=== PATIENT | male | born 1955 | race Caucasian/White ===

== ENCOUNTER 2018-03-21 03:19 | Outpatient (CLI) | payer MEDICARE, BC, SELFPAY ==
[2018-03-21 11:04] LABS: BUN 18 mg/dL (7-18); CREATININE 1.07 mg/dL (0.70-1.30); Calcium 9.6 mg/dL (8.5-10.1); Chloride 104 mmol/L (98-107); Glucose 122 mg/dL (70-100); Potassium 4.7 mmol/L (3.5-5.1); Sodium 136 mmol/L (136-145)
== END 2018-03-21 03:20 ==
PROVIDERS: PCP Specialist/Technologist Athletic Trainer; Visit Provider Nurse Practitioner Adult Health
DX: I50.22 Chronic systolic (congestive) heart failure (principal)
CPT/HCPCS: 36415; 80048

== ENCOUNTER 2018-03-21 11:37 | Outpatient (RCR) | payer MEDICARE, OTHER, BC, SELFPAY | END 2018-03-21 23:59 | disposition home or self-care (01) | LOC: CR 11:37 | PROVIDERS: PCP Specialist/Technologist Athletic Trainer; Visit Provider Family Medicine | DX: I50.9 Heart failure, unspecified (principal); Z95.810 Presence of automatic (implantable) cardiac defibrillator; I10 Essential (primary) hypertension; Z51.89 Encounter for other specified aftercare | CPT/HCPCS: S9472 ==

== ENCOUNTER 2018-04-14 08:06 | Outpatient (CLI) | payer MEDICARE, BC, SELFPAY ==
[2018-04-14 11:15] LABS: BUN 23 mg/dL (7-18); CREATININE 1.24 mg/dL (0.70-1.30); Calcium 9.6 mg/dL (8.5-10.1); Chloride 103 mmol/L (98-107); Estimated GFR 58.51 (mL/min/1.73m2); Glucose 84 mg/dL (70-100); Potassium 4.6 mmol/L (3.5-5.1); Sodium 138 mmol/L (136-145)
== END 2018-04-14 08:26 ==
PROVIDERS: PCP Specialist/Technologist Athletic Trainer; Visit Provider Nurse Practitioner Adult Health
DX: I50.22 Chronic systolic (congestive) heart failure (principal)
CPT/HCPCS: 36415; 80048

== ENCOUNTER 2018-04-18 13:21 | Outpatient (RCR) | payer MEDICARE, OTHER, BC, SELFPAY | END 2018-04-20 23:59 | disposition home or self-care (01) | LOC: CR 13:21 | PROVIDERS: PCP Specialist/Technologist Athletic Trainer; Visit Provider Family Medicine | DX: I50.9 Heart failure, unspecified (principal); Z95.810 Presence of automatic (implantable) cardiac defibrillator; I10 Essential (primary) hypertension; Z51.89 Encounter for other specified aftercare | CPT/HCPCS: S9472 ==

== ENCOUNTER 2018-04-29 08:51 | Outpatient (CLI) | payer MEDICARE, BC, SELFPAY ==
[2018-04-29 09:17] LABS: Anion Gap 10.5 mmol/L (3-11); BUN 20 mg/dL (7-18); CO2 25.5 mmol/L (21.0-32.0); CREATININE 1.13 mg/dL (0.70-1.30); Calcium 9.4 mg/dL (8.5-10.1); Chloride 101 mmol/L (98-107); Glucose 254 mg/dL (70-100); Potassium 3.9 mmol/L (3.5-5.1); Sodium 137 mmol/L (136-145)
== END 2018-04-29 09:11 ==
PROVIDERS: PCP Specialist/Technologist Athletic Trainer; Visit Provider Nurse Practitioner Adult Health
DX: I50.22 Chronic systolic (congestive) heart failure (principal)
CPT/HCPCS: 36415; 80048

== ENCOUNTER 2018-05-14 08:46 | Inpatient (IN) | payer MEDICARE, OTHER, SELFPAY ==
[2018-05-14 08:53] VITALS: BP 158/91; PULSE 82; RESP 16; TEMP 36.3; O2SAT 95
[2018-05-14] MEDS: Normal Saline 1,000 ML 1000 ML IV (09:15)
[2018-05-14] MEDS: Metoclopramide 10 MG/2 ML VIAL IVP (09:20)
[2018-05-14 09:23] LABS: Abs Immature Grans 0.04 k/cumm (0.0-0.09); Absolute Basophil Count 0.05 k/cumm (0.0-0.2); Absolute Eosinophil Count 0.08 k/cumm (0.0-0.7); Absolute Lymphocyte Count 3.56 k/cumm (1.2-3.4); Absolute Monocyte Count 1.22 k/cumm (0.11-0.7); Absolute Neutrophil Count 10.32 k/cumm (1.2-6.7); Basophils % 0.3; Eosinophils % 0.5; HCT 44.9 % (40.0-50.0); HGB 15.2 g/dL (13.5-17.5); Immature Grans % 0.3; Lymphocytes % 23.3; Mean Corp. HGB Concentration 33.9 g/dL (32.0-36.0); Mean Corpuscular Hemoglobin 32.5 pg (27.0-33.0); Mean Corpuscular Volume 95.9 fL (80-95); Mean Platelet Volume 11.2 fL (8.0-11.0); Neutrophils % 67.6; Platelet Count 369 x1000/uL (130-400); RBC 4.68 m/cumm (4.50-6.00); RBC Distribution Width 14.4 % (11.8-14.1); White Blood Cell Count 15.26 k/cumm (4.4-10.8)
[2018-05-14] MEDS: HYDROmorphone 2 MG/ML VIAL 1 MG IVP ×3 (09:25→23:22)
--- NOTE | 2018-05-14 09:31 | ED.GENADUL_ITS ---
Discharge Plan Discharge Details Chief Complaint: Abd Prob Reason For Visit: ACUTE PANCREATITIS Admit Date/Time: 05/14/18 10:48 Admit Provider: Katty Martin Attending Provider: Katty Martin Primary Care Provider: Dwain Mercado ED Provider: Yobany Talley Discharge Data Discharge Date/Time-TO BE ENTERED AT DEPARTURE: 05/14/18 11:37 Medical Decision Making 9:30 --53-year-old male with history of insulin-dependent diabetes, recurrent pancreatitis, coronary artery disease, hypertension, CHF, here with abdominal pain nausea since last night that is consistent with prior flare of pancreatitis. Tender mid abdomen with no peritoneal findings. Plan is to check labs. Will give IV fluid bolus. Will give Dilaudid 1 mg IV for analgesia. -- Labs reviewed and lipase elevated. Patient reassessed and continues to have pain. Plan for admission for IVF, bowel rest and pain control. I spoke with hospitalist who will admit - care transitioned to hospitalist at time of admission. Diagnosis: recurrent pancreatitis, acute exacerbation Dispo: [facility] inpatient HPI General Mode of arrival: ambulatory . Date/Time Provider Initiated Documentation: 05/14/18 08:59 . Limitations to Documentation: no limitations . Information obtained by: patient . HPI Narrative: 63-year-old male with history of recurrent pancreatitis, insulin- dependent diabetes, hypertension, CHF, here with chief complaint of abdominal pain. Patient notes the pain started last night and has persisted. Pain is constant and severe. Pain feels like a ache. Localized to mid abdomen. Feels exactly the same as prior flare of pancreatitis. Last flare was a few months ago. He has associated nausea and vomiting x1. No fever. Related Data Home Medications Medication Instructions Recorded Confirmed multivitamin [Multiple Vitamins] 1 tab PO DAILY #30 tab 01/28/16 05/14/18 lisinopril 2.5 mg PO DAILY #30 tab-cap 09/05/16 05/14/18 magnesium oxide 400 mg PO DAILY #30 tab 01/20/17 05/14/18 carvedilol 12.5 mg PO BID #60 tab-cap 03/20/17 05/14/18 [id number] [Creon] 2 ea PO BID 05/07/17 05/14/18 insulin detemir U-100 [Levemir 60 units SQ QAM 06/13/17 05/14/18 FlexTouch U-100 Insuln] insulin detemir U-100 [Levemir 60 units SQ QPM 06/13/17 05/14/18 FlexTouch U-100 Insuln] insulin lispro [Humalog KwikPen 10 unit SQ DAILY 06/13/17 05/14/18 Insulin] fenofibrate 160 mg PO DAILY #30 tablet 10/02/17 05/14/18 furosemide 20 mg PO DAILY tab-cap 12/04/17 05/14/18 ranitidine HCl 300 mg PO DAILY tab-cap 12/04/17 05/14/18 atorvastatin 10 mg PO .QHS 05/14/18 spironolactone 25 mg PO DAILY 05/14/18 Previous Rx's Medication Instructions Recorded multivitamin [Multiple Vitamins] 1 tab PO DAILY #30 tab 01/28/16 magnesium oxide 400 mg PO DAILY #30 tab 01/20/17 fenofibrate 160 mg PO DAILY #30 tablet 10/02/17 Allergies Allergy/AdvReac Type Severity Reaction Status Date / Time No Known Allergies Allergy Unverified 05/14/18 08:55 General Stated Complaint: Abd Prob KOLBY: 3 Review of Systems Review of Systems All systems reviewed & are unremarkable except as noted in HPI and below Cardiovascular Denies chest pain Gastrointestinal Reports as per HPI and Reports abdominal pain PFSH Social History Smoking/Tobacco Use Status: Never Surgical History Cholecystectomy Colonoscopy - IV Sedation (06/20/16) Splenomegaly Exam Const General: cooperative and no acute distress HENMT Mouth: moist mucous membranes Eyes Conjunctivae: conjunctivae normal Sclera: sclerae normal Neck Neck: normal visual inspection Resp Effort & Inspection: normal respiratory effort and no respiratory distress Auscultation: no rales, no rhonchi and no wheezes Cardio Jugular venous pressure: no JVD Rate: not tachycardic Rhythm: regular rhythm Heart Sounds: no gallops, no murmurs and no rubs GI Inspection: non-distended Palpation: soft, not firm, no guarding, not rigid and tender (mid abdomen) Auscultation: normal bowel sounds Skin General skin exam: no rashes or lesions noted Neuro General: alert and awake Extrem General: no edema Psych Appearance: grossly normal Mental Status: mental status grossly normal Speech and Movement: speech and movement normal Course Vital Signs Temperature 36.3 C L 05/14/18 08:53 Pulse 82 05/14/18 08:53 Respiratory Rate 16 05/14/18 08:53 Blood Pressure 158/91 H 05/14/18 08:53 Pulse Oximetry 95 05/14/18 08:53 Temperature 36.3 C L 05/14/18 08:53 Temperature Source Skin 05/14/18 08:53 Pulse 82 05/14/18 08:53 Respiratory Rate 16 05/14/18 08:53 Respiratory Effort 05/14/18 08:53 Blood Pressure 158/91 H 05/14/18 08:53 Blood Pressure Position Sitting 05/14/18 08:53 Pulse Oximetry 95 05/14/18 08:53 Oxygen Delivery Method Room Air 05/14/18 08:53 Oxygen Flow Rate 0 05/14/18 08:53 Pain Level 7 05/14/18 08:53 Lab/Test Results Lab/Test Results: Laboratory Tests Range/Units 05/14/18 09:15 WBC (4.4-10.8) k/cumm 15.26 H RBC (4.50-6.00) m/cumm 4.68 Hgb (13.5-17.5) g/dL 15.2 Hct (40.0-50.0) % 44.9 MCV (80-95) fL 95.9 H MCH (27.0-33.0) pg 32.5 MCHC (32.0-36.0) g/dL 33.9 RDW (11.8-14.1) % 14.4 H Plt Count (130-400) x1000/uL 369 MPV (8.0-11.0) fL 11.2 H Immature Gran % 0.3 Neutrophils % 67.6 Lymphocytes % 23.3 Monocytes % 8.0 Eosinophils % 0.5 Basophils % 0.3 Absolute Neutrophils (1.2-6.7) k/cumm 10.32 H Absolute Lymphocytes (1.2-3.4) k/cumm 3.56 H Absolute Monocytes (0.11-0.7) k/cumm 1.22 H Absolute Eosinophils (0.0-0.7) k/cumm 0.08 Absolute Basophils (0.0-0.2) k/cumm 0.05
[2018-05-14 09:36] LABS: ALT 28 U/L (12-78); AST 21 U/L (15-37); Albumin 3.9 g/dL (3.4-5.0); Alkaline Phosphatase 65 U/L (46-116); Anion Gap 11.1 mmol/L (3-11); BUN 28 mg/dL (7-18); Bilirubin, Total 0.7 mg/dL (0.2-1.0); CO2 23.9 mmol/L (21.0-32.0); CREATININE 1.38 mg/dL (0.70-1.30); Calcium 9.7 mg/dL (8.5-10.1); Chloride 99 mmol/L (98-107); Estimated GFR 51.71 (mL/min/1.73m2); Glucose 283 mg/dL (70-100); Lipase 430 U/L (73-393); Potassium 4.6 mmol/L (3.5-5.1); Sodium 134 mmol/L (136-145)
[2018-05-14 11:40] VITALS: BP 133/87; PULSE 86; RESP 20; TEMP 36.6; O2SAT 96
[2018-05-14 11:50] VITALS: BP 119/62; PULSE 77; RESP 16; TEMP 36.6; O2SAT 95
[2018-05-14] MEDS: Pantoprazole 40 MG VIAL IVP (12:03)
[2018-05-14] MEDS: Enoxaparin 40 MG/0.4 ML SYR SC (12:04)
[2018-05-14] MEDS: Normal Saline Flush 10 ML SYR IVP ×2 (12:04→23:22)
[2018-05-14] MEDS: Normal Saline 1,000 ML 200 ML IV ×2 (12:04→17:10)
[2018-05-14] MEDS: Insulin Aspart 300 UNITS/3 ML PEN SC ×2 (12:41→17:50)
[2018-05-14 16:12] VITALS: BP 153/88; PULSE 79; RESP 20; TEMP 36.4; O2SAT 96
--- NOTE | 2018-05-14 16:23 | HPE_ITS ---
Date of service: 05/14/18 Time of Service: 16:18 Assessment and Plan (1) Recurrent acute pancreatitis: Current visit: Yes Status: Acute With mildly elevated lipase at 430. He has a history of hypertriglyceridemia. Will assess lipids with morning labs. Have analgesics and antiemetics available. He will remain n.p.o. Continue IV fluids. Reassess labs in the morning. (2) Cardiomyopathy, alcoholic: Current visit: Yes Status: Acute He does have cardiomyopathy with most recent echocardiogram in November 2017 revealing mild to moderately reduced systolic function with LVEF of 30-35%. He does have an ICD in place. We will need to monitor his fluid status closely so he does not get fluid overloaded. Monitor daily weights. (3) Diabetes mellitus type 2 in obese: Current visit: Yes Status: Acute He will remain n.p.o. for now. Monitor fingersticks every 6 hours with sliding scale coverage per moderate protocol. Basal insulin at half of his home dose given n.p.o. status. (4) Essential hypertension: Current visit: Yes Status: Acute Hold oral blood pressure medications and continue to monitor blood pressures. Plan to resume home regimen as he is able to take orals. (5) DVT prophylaxis: Current visit: No Status: Acute Subcutaneous Lovenox. (6) Discharge planning issues: Current visit: No Status: Acute He is a full code. This case was discussed with Dr. Martin who is in agreement. History of Present Illness Chief Complaint: Abdominal pain, nausea and vomting. Narrative: Sonny Henning is a 63 year old man with a history of nonischemic cardiomyopathy status post subcutaneous ICD, insulin-dependent diabetes, coronary artery disease, hypertension, CHF and recurrent pancreatitis who presented to the Emergency Department today with reports of abdominal pain, nausea and vomiting that began last night. He does have a history of alcohol abuse but is currently in remission, he reports that he has not had an alcoholic beverage in about 2.5 years. In the emergency room, he had labs drawn that were remarkable for a mildly elevated lipase of 430, leukocytosis with a white blood cell count of 15.26, anion gap elevated at 11.1. He was given an IV fluid bolus. He is admitted to the med/surg floor for further observation and management of pancreatitis. Of note, he was admitted in September of this year for pancreatitis which was thought to be related to hypertriglyceridemia as his triglyceride level at that time was 1755. At that time he was changed from gemfibrozil to fenofibrate and atorvastatin was continued. Review of Systems Review of Systems Constitutional: He denies any fevers or chills at home. HEENT: He denies any headaches, vision changes, ear pain or discharge, nose pain or discharge, sore throat. Respiratory: He denies any shortness of breath, wheezing, he does report a dry cough that is nonproductive. Cardiovascular: He denies any chest pain/pressure, no palpitations, no edema. GI: He notes significant abdominal discomfort across the top of his abdomen and epigastric region, the pain is constant and aching, reminiscent of previous pancreatitis flares. He reports nausea and vomiting. He has been able to take in some oral intake at home. : He denies any dysuria, hematuria, frequency or urgency of urination. Extremities: He denies any pain or stiffness, no edema. Skin: He denies any rashes or lesions. [facility] Social History Smoking/Tobacco Use Status: Never Surgical History Cholecystectomy Colonoscopy - IV Sedation (06/20/16) [facility] Meds Home Medications Medication Instructions Recorded Confirmed Type multivitamin [Multiple Vitamins] 1 tab PO DAILY #30 tab 01/28/16 05/14/18 Rx lisinopril 2.5 mg PO DAILY #30 tab-cap 09/05/16 05/14/18 History magnesium oxide 400 mg PO DAILY #30 tab 01/20/17 05/14/18 Rx carvedilol 12.5 mg PO BID #60 tab-cap 03/20/17 05/14/18 History [id number] [Creon] 2 ea PO BID 05/07/17 05/14/18 History insulin detemir U-100 [Levemir 60 units SQ QAM 06/13/17 05/14/18 History FlexTouch U-100 Insuln] insulin detemir U-100 [Levemir 60 units SQ QPM 06/13/17 05/14/18 History FlexTouch U-100 Insuln] insulin lispro [Humalog KwikPen 10 unit SQ DAILY 06/13/17 05/14/18 History Insulin] fenofibrate 160 mg PO DAILY #30 tablet 10/02/17 05/14/18 Rx furosemide 20 mg PO DAILY tab-cap 12/04/17 05/14/18 History ranitidine HCl 300 mg PO DAILY tab-cap 12/04/17 05/14/18 History atorvastatin 10 mg PO .QHS 05/14/18 History spironolactone 25 mg PO DAILY 05/14/18 History Allergies Allergy/AdvReac Type Severity Reaction Status Date / Time No Known Allergies Allergy Unverified 05/14/18 08:55 Exam Narrative Exam Narrative: General: Face is flushed, he is a pleasant and cooperative, overweight man, appears stated age. he is in no acute distress. HEENT: Pupils are equal and round. Mucous membranes are moist. Neck: Supple without JVD. Respiratory: Respirations are even and unlabored, lung sounds are clear to auscultation throughout, no adventitious lung sounds noted throughout lung escudero. Cardiovascular: Heart has a regular rate and rhythm, non-tachycardic. Soft murmur noted at the right sternal border. GI: Large round abdomen, soft, mildly distended. Tender on palpation across upper abdomen. Hypoactive bowel sounds throughout. Extremities: Well perfused without clubbing cyanosis or edema. Peripheral pulses palpable. Skin: No rash or lesion noted. Results Labs : 05/14/18 09:15 05/14/18 09:15 Laboratory Results - last 24 hr 05/14/18 05/14/18 09:15 09:15 WBC 15.26 H RBC 4.68 Hgb 15.2 Hct 44.9 MCV 95.9 H MCH 32.5 MCHC 33.9 RDW 14.4 H Plt Count 369 MPV 11.2 H Immature Gran % 0.3 Neutrophils % 67.6 Lymphocytes % 23.3 Monocytes % 8.0 Eosinophils % 0.5 Basophils % 0.3 Absolute Neutrophils 10.32 H Absolute Lymphocytes 3.56 H Absolute Monocytes 1.22 H Absolute Eosinophils 0.08 Absolute Basophils 0.05 Sodium 134 L Potassium 4.6 Chloride 99 Carbon Dioxide 23.9 Anion Gap 11.1 H BUN 28 H Creatinine 1.38 H Estimated GFR/1.73 m2 51.71 Glucose 283 H Calcium 9.7 Total Bilirubin 0.7 AST 21 ALT 28 Alkaline Phosphatase 65 Total Protein 8.0 Albumin 3.9 Lipase 430 H Last Vital Signs Temp 36.4 C L 10/24/18 16:12 Pulse 79 05/14/18 16:12 Resp 20 05/14/18 16:12 BP 153/88 H 05/14/18 16:12 Pulse Ox 96 05/14/18 16:12
[2018-05-14 19:43] VITALS: BP 130/74; PULSE 82; RESP 19; TEMP 36.4; O2SAT 94
[2018-05-14] MEDS: Insulin Glargine 300 UNITS/3 ML PEN 30 UNITS SC (21:27)
[2018-05-14] MEDS: Normal Saline 1,000 ML 100 ML IV (23:23)
[2018-05-15] VITALS (7 sets, daily range): BP systolic 100–163; BP diastolic 60–96; PULSE 78–94; RESP 16–20; TEMP 36.5–37.5; O2SAT 92–97
[2018-05-15 07:20] LABS: Abs Immature Grans 0.01 k/cumm (0.0-0.09); Absolute Basophil Count 0.02 k/cumm (0.0-0.2); Absolute Eosinophil Count 0.17 k/cumm (0.0-0.7); Absolute Lymphocyte Count 4.16 k/cumm (1.2-3.4); Absolute Monocyte Count 1.18 k/cumm (0.11-0.7); Absolute Neutrophil Count 5.18 k/cumm (1.2-6.7); Basophils % 0.2; Eosinophils % 1.6; HCT 42.7 % (40.0-50.0); HGB 14.1 g/dL (13.5-17.5); Immature Grans % 0.1; Lymphocytes % 38.8; Mean Corpuscular Hemoglobin 32.6 pg (27.0-33.0); Mean Corpuscular Volume 98.8 fL (80-95); Mean Platelet Volume 11.4 fL (8.0-11.0); Neutrophils % 48.3; Platelet Count 321 x1000/uL (130-400); RBC 4.32 m/cumm (4.50-6.00); RBC Distribution Width 14.5 % (11.8-14.1); White Blood Cell Count 10.72 k/cumm (4.4-10.8)
[2018-05-15 07:51] LABS: ALT 23 U/L (12-78); AST 16 U/L (15-37); Alkaline Phosphatase 56 U/L (46-116); BUN 17 mg/dL (7-18); Bilirubin, Direct 0.15 mg/dL (0.00-0.20); Bilirubin, Total 0.7 mg/dL (0.2-1.0); CREATININE 1.04 mg/dL (0.70-1.30); Calcium 8.5 mg/dL (8.5-10.1); Chloride 103 mmol/L (98-107); Glucose 142 mg/dL (70-100); Lipase 678 U/L (73-393); Potassium 3.7 mmol/L (3.5-5.1); Sodium 138 mmol/L (136-145); Total Protein 6.8 g/dL (6.4-8.2)
[2018-05-15 08:03] LABS: Cholesterol 178 mg/dL (50-200); HDL Cholesterol 24 mg/dL (40-60); LDL CHOLESTEROL 83 mg/dL (<100); Triglyceride 484 mg/dL (30-150)
[2018-05-15] MEDS: Insulin Glargine 300 UNITS/3 ML PEN 30 UNITS SC ×2 (08:29→20:50)
--- NOTE | 2018-05-15 09:07 | PDOC.CMIN ---
- If Service Date Differs Date of service: 05/15/18 Time of Service: 09:07 Care Management Initial Assess REASON FOR HOSPITALIZATION:: Acute pancreatitis. PAST MEDICAL HISTORY/PAST SURGICAL HISTORY:: Alcohol dependence, cardiomyopathy (alcoholic), CHF, diabetes type II, essential HTN, hypertriglyceridemia, LBBB, pancreatic pseudocyst, pancreatitis, recurrent acute pancreatitis. Surgical hx: cholecystectomy, colonoscopy, implantable cardiverter-defibrillator (ICD) placement, tonsillectomy, splenomegaly. PREVIOUS FUNCTIONAL STATUS/SOCIAL/FAMILY SUPPORTS:: Sonny resides in [facility] with his , Stephanie, their 29 year old son, Tyler, his girlfriend and her child, and Tyler's daughter (Sonny's granddaughter). He is retired since 2016, having most recently been employed at [employer]. 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 His , Stephanie, works in [place] at [employer]. Cyndie is independent with his ADLs and transportation and does not utilize any equipment for ambulating. CURRENT FUNCTIONAL STATUS:: Sonny is lying in bed when CM visits this morning. He is engaged in conversation, makes good eye contact, and is talkative. Sonny denies pain at this time and has no complaints or concerns. He is NPO and is receiving IV fluids (NS) at 100ml/hr. ADVANCE DIRECTIVES:: On file at [facility]. Has patient been provided with information about the portal?: Yes Did the patient sign up for the portal?: No CODE STATUS:: Full Code INSURANCE COVERAGE / FINANCIAL ISSUES:: Medicare. CURRENT HOME/COMMUNITY SERVICES/EQUIPMENT:: No home or community services. No equipment. PRIMARY CARE PHYSICIAN:: Dwain Mercado. POTENTIAL DISCHARGE NEEDS:: Follow up appointment with PCP. PATIENT/FAMILY EDUCATION NEEDS:: Discharge education, any limitations, and follow up plan of care. Ask Me Three discussion. ANTICIPATED BARRIERS TO DISCHARGE:: No anticipated barriers to discharge. TRANSPORTATION:: Sonny will discharge home via private vehicle with his family. PLAN:: Sonny will discharge home when medically ready per MD. Anticipate patient will discharge with no services and follow up with PCP. CM will continue to offer support to patient and care team regarding discharge planning and disposition.
--- NOTE | 2018-05-15 09:15 | INITIAL_ITS ---
- If Service Date Differs Date of service: 05/15/18 Time of Service: 09:07 Care Management Initial Assess REASON FOR HOSPITALIZATION:: Acute pancreatitis. PAST MEDICAL HISTORY/PAST SURGICAL HISTORY:: Alcohol dependence, cardiomyopathy (alcoholic), CHF, diabetes type II, essential HTN, hypertriglyceridemia, LBBB, pancreatic pseudocyst, pancreatitis, recurrent acute pancreatitis. Surgical hx: cholecystectomy, colonoscopy, implantable cardiverter-defibrillator (ICD) placement, tonsillectomy, splenomegaly. PREVIOUS FUNCTIONAL STATUS/SOCIAL/FAMILY SUPPORTS:: Sonny resides in [facility] with his , Stephanie, their 29 year old son, Tyler, his girlfriend and her child, and Tyler's daughter (Sonny's granddaughter). He is retired since 2016, having most recently been employed at [employer]. 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 His , Stephanie, works in [place] at [employer]. Cyndie is independent with his ADLs and transportation and does not utilize any equipment for ambulating. CURRENT FUNCTIONAL STATUS:: Sonny is lying in bed when CM visits this morning. He is engaged in conversation, makes good eye contact, and is talkative. Sonny denies pain at this time and has no complaints or concerns. He is NPO and is receiving IV fluids (NS) at 100ml/hr. ADVANCE DIRECTIVES:: On file at [facility]. Has patient been provided with information about the portal?: Yes Did the patient sign up for the portal?: No CODE STATUS:: Full Code INSURANCE COVERAGE / FINANCIAL ISSUES:: Medicare. CURRENT HOME/COMMUNITY SERVICES/EQUIPMENT:: No home or community services. No equipment. PRIMARY CARE PHYSICIAN:: Dwain Mercado. POTENTIAL DISCHARGE NEEDS:: Follow up appointment with PCP. PATIENT/FAMILY EDUCATION NEEDS:: Discharge education, any limitations, and follow up plan of care. Ask Me Three discussion. ANTICIPATED BARRIERS TO DISCHARGE:: No anticipated barriers to discharge. TRANSPORTATION:: Sonny will discharge home via private vehicle with his family. PLAN:: Sonny will discharge home when medically ready per MD. Anticipate patient will discharge with no services and follow up with PCP. CM will continue to offer support to patient and care team regarding discharge planning and disposition.
--- NOTE | 2018-05-15 11:52 | PGE_ITS ---
Assessment and Plan (1) Recurrent acute pancreatitis: Current visit: Yes Status: Acute Lipase up today to 678 from 430. He has a history of hypertriglyceridemia , his triglycerides have improved since his last hospitalization to 484 ( previously 1755). Continue to have analgesics and antiemetics available. The plan is to trial a clear liquid diet. Will keep IV fluids running until it is clear that he is tolerating oral fluids. Reassess labs in the morning. (2) Cardiomyopathy, alcoholic: Current visit: Yes Status: Acute He does have cardiomyopathy with most recent echocardiogram in November 2017 revealing mild to moderately reduced systolic function with LVEF of 30-35%. He does have an ICD in place. Continue to monitor his fluid status closely so he does not get fluid overloaded. Monitor daily weights. Will discontinue IV fluids once it is clear that he is tolerating oral intake. (3) Diabetes mellitus type 2 in obese: Current visit: Yes Status: Acute His blood sugars are in an acceptable range. Will adjust fingersticks to AC&HS with sliding scale coverage per moderate protocol. Continue basal insulin at half of his home dose, increase as his diet increases. (4) Essential hypertension: Current visit: Yes Status: Acute Blood pressure stable. Continue to hold oral blood pressure medications and continue to monitor blood pressures. Plan to resume home regimen as he is able to take orals. (5) DVT prophylaxis: Current visit: No Status: Acute Subcutaneous Lovenox. (6) Discharge planning issues: Current visit: No Status: Acute He is a full code. This case was discussed with Dr. Martin who is in agreement. Subjective Interval history since last seen: Sonny Henning is a 63 year old man with a history of nonischemic cardiomyopathy status post subcutaneous ICD, insulin- dependent diabetes, coronary artery disease, hypertension, CHF and recurrent pancreatitis who is currently being treated for pancreatitis. He presented to the ED with abdominal pain, nausea and vomiting. His lipase was mildly elevated at 430, today his lipase it up to 678. His white count was 15.26, it is down to 10.72 today. His kidney function has normalized today. He feels better. He continues to have some upper abdominal discomfort, however, he has not required IV pain medicine in several hours. He would like to trial a clear liquid diet. He denies any chest pain/pressure, palpitations, shortness of breath, wheezing, cough, his nausea has resolved, he denies any issues with his bowel or bladder function. Exam Narrative Exam Narrative: General: He is a pleasant and cooperative, overweight man, appears stated age. He is in no acute distress. HEENT: Pupils are equal and round. Mucous membranes are moist. Neck: Supple without JVD. Respiratory: Respirations are even and unlabored, lung sounds are clear to auscultation throughout, no adventitious lung sounds noted throughout lung escudero. Cardiovascular: Heart has a regular rate and rhythm, non-tachycardic. Soft murmur noted at the right sternal border, second intercostal space. GI: Large round abdomen, soft, mildly distended. Tender on palpation across upper abdomen. Hypoactive bowel sounds throughout. Extremities: Well perfused without clubbing cyanosis or edema. Peripheral pulses palpable. Skin: No rash or lesion noted. Objective Objective Clinical Data: Abnormal lab results 05/15/18 05/15/18 Range/Units 06:45 06:45 RBC 4.32 L (4.50-6.00) m/cumm MCV 98.8 H (80-95) fL RDW 14.5 H (11.8-14.1) % MPV 11.4 H (8.0-11.0) fL Absolute Lymphocytes 4.16 H (1.2-3.4) k/cumm Absolute Monocytes 1.18 H (0.11-0.7) k/cumm Glucose 142 H D (70-100) mg/dL Albumin 3.0 L (3.4-5.0) g/dL Triglycerides 484 H (30-150) mg/dL HDL Cholesterol 24 L (40-60) mg/dL Lipase 678 H (73-393) U/L Vital Signs Temperature 37.4 C 05/15/18 08:25 Temperature Source Tympanic 05/15/18 08:25 Pulse 78 05/15/18 08:25 Pulse Rhythm Regular 05/15/18 08:20 Respiratory Rate 20 05/15/18 08:25 Respiratory Effort 05/15/18 08:20 Respiratory Depth Normal 05/15/18 08:20 Respiratory Pattern Normal 05/15/18 08:20 Blood Pressure 132/75 05/15/18 08:25 Blood Pressure Position Sitting 05/14/18 08:53 Pulse Oximetry 96 05/15/18 08:25 Oxygen Delivery Method Room Air 05/15/18 08:25 Oxygen Flow Rate 0 05/15/18 08:25 Pain Level 3 05/15/18 08:25 Comment 05/15/18 08:25 Intake & Output 05/14/18 05/14/18 05/15/18 11:59 23:59 11:59 Intake Total 100 1999 Output Total 800 / 800 925 / 925 Balance 100 / 1200 / 1200 -925 / -925 Weight 111.13 kg 115.1 kg Intake: IV 1999 Output: Urine 800 / 800 925 / 925 Other: Urine Color Yellow Straw Urine Appearance Clear Clear Clear Voiding Methods Urinal Urinal Laboratory Results WBC 10.72 k/cumm (4.4-10.8) 05/15/18 06:45 RBC 4.32 m/cumm (4.50-6.00) L 05/15/18 06:45 Hgb 14.1 g/dL (13.5-17.5) 05/15/18 06:45 Hct 42.7 % (40.0-50.0) 05/15/18 06:45 MCV 98.8 fL (80-95) H 05/15/18 06:45 MCH 32.6 pg (27.0-33.0) 05/15/18 06:45 MCHC 33.0 g/dL (32.0-36.0) 05/15/18 06:45 RDW 14.5 % (11.8-14.1) H 05/15/18 06:45 Plt Count 321 x1000/uL (130-400) 05/15/18 06:45 MPV 11.4 fL (8.0-11.0) H 05/15/18 06:45 Immature Gran % 0.1 05/15/18 06:45 Neutrophils % 48.3 05/15/18 06:45 Lymphocytes % 38.8 05/15/18 06:45 Monocytes % 11.0 05/15/18 06:45 Eosinophils % 1.6 05/15/18 06:45 Basophils % 0.2 05/15/18 06:45 Absolute Neutrophils 5.18 k/cumm (1.2-6.7) 05/15/18 06:45 Absolute Lymphocytes 4.16 k/cumm (1.2-3.4) H 05/15/18 06:45 Absolute Monocytes 1.18 k/cumm (0.11-0.7) H 05/15/18 06:45 Absolute Eosinophils 0.17 k/cumm (0.0-0.7) 05/15/18 06:45 Absolute Basophils 0.02 k/cumm (0.0-0.2) 05/15/18 06:45 Sodium 138 mmol/L (136-145) 05/15/18 06:45 Potassium 3.7 mmol/L (3.5-5.1) 05/15/18 06:45 Chloride 103 mmol/L (98-107) 05/15/18 06:45 Carbon Dioxide 27.0 mmol/L (21.0-32.0) 05/15/18 06:45 Anion Gap 8.0 mmol/L (3-11) 05/15/18 06:45 BUN 17 mg/dL (7-18) D 05/15/18 06:45 Creatinine 1.04 mg/dL (0.70-1.30) 05/15/18 06:45 Estimated GFR/1.73 m2 >= 60.00 (mL/min/1.73m2) 05/15/18 06:45 Glucose 142 mg/dL (70-100) H D 05/15/18 06:45 Calcium 8.5 mg/dL (8.5-10.1) 05/15/18 06:45 Magnesium 2.0 mg/dL (1.8-2.4) 05/15/18 06:45 Total Bilirubin 0.7 mg/dL (0.2-1.0) 05/15/18 06:45 Conjugated Bilirubin 0.15 mg/dL (0.00-0.20) 05/15/18 06:45 AST 16 U/L (15-37) 05/15/18 06:45 ALT 23 U/L (12-78) 05/15/18 06:45 Alkaline Phosphatase 56 U/L (46-116) 05/15/18 06:45 Total Protein 6.8 g/dL (6.4-8.2) 05/15/18 06:45 Albumin 3.0 g/dL (3.4-5.0) L 05/15/18 06:45 Triglycerides 484 mg/dL (30-150) H 05/15/18 06:45 Total Cholesterol 178 mg/dL (50-200) 05/15/18 06:45 LDL Cholesterol Direct 83 mg/dL (<100) 05/15/18 06:45 HDL Cholesterol 24 mg/dL (40-60) L 05/15/18 06:45 Lipase 678 U/L (73-393) H 05/15/18 06:45
[2018-05-15] MEDS: Normal Saline Flush 10 ML SYR IVP (12:10)
[2018-05-15] MEDS: Pantoprazole 40 MG VIAL IVP (12:10)
[2018-05-15] MEDS: Normal Saline 1,000 ML 100 ML IV ×2 (12:10→22:59)
[2018-05-15] MEDS: Enoxaparin 40 MG/0.4 ML SYR SC (12:11)
[2018-05-15] MEDS: Insulin Aspart 300 UNITS/3 ML PEN SC ×2 (12:19→17:41)
--- NOTE | 2018-05-15 12:29 | PHARADMIT ---
Addendum entered by Jesus Hinojosa III 05/16/18 13:16: Pharmacy Note Subjective Patient placed on clears, bearly tolerating, MD to go slow advancing diet. Objective VS-OK Pain:08/31 FSBS-137 No Labs, No BM Assessment On Lovenox, Insulin adjusted Plan MD awaiting patients symptoms to clear. Supportive care Original Note: Admission Pharmacy Clinical Review ACUTE PANCREATITIS Code Status Full Code Current Weight Wgt-115.1 kg Renally Cleared and Narrow Therapeutic Index Meds CrCl~ 80 mL/min Meds-OK QTc Value / Action Taken NA BP Control, Fever BP- 139/80 Tmax- 37.5C Electrolytes reviewed Na- 138 K+3.7 DVT Prophylaxis Lovenox Opiate Usage / Scheduled Bowel Regimen Ordered Yes Yes Plt/SCr for Heparin / Enoxaparin Plts-321 SCr-1.04 INR for Warfarin NA H/H stable, WBC/Bands H&H- 14.1/42.7 WBC- 10.72 Antibiotic appropriateness none Cultures and Sensitivities none Surgical ABX d/c within 24 hr na DM control / Insulin Dosing BG- 142, Aspart, Glargine Heart Failure (Check EF%) (MEE's, B-Block, Diuretics) none IV to PO Switch No Home Meds Reviewed Yes Home Meds Not Ordered Coreg,Creon, Fenofibrate, Levemir, Lispro, Lisinopril, Zantac, Lasix MagOx, M-vites,Spironolactone Comments
[2018-05-15] MEDS: HYDROmorphone 2 MG/ML VIAL 1 MG IVP (20:14)
[2018-05-16 03:35] VITALS: BP 105/65; PULSE 80; RESP 20; TEMP 36.5; O2SAT 97
[2018-05-16] MEDS: HYDROmorphone 2 MG/ML VIAL 1 MG IVP (03:52)
[2018-05-16 07:40] VITALS: BP 128/80; PULSE 78; RESP 18; TEMP 36.6; O2SAT 96
[2018-05-16] MEDS: Insulin Glargine 300 UNITS/3 ML PEN 30 UNITS SC ×2 (08:58→20:45)
--- NOTE | 2018-05-16 10:54 | PDOC.CMPRO ---
- If Service Date Differs Date of service: 05/16/18 Time of Service: 10:55 Care Management Progress Note S/O: Shon is sitting up in his chair watching TV when this staff writer visits. Shon checks in with ALAINA and states that he is feeling better today. CM discussed Shon's Creon medication, he states that he was able to get it filled previously as he had BCBS, and now with his change in insurance to [facility], they will not cover the cost of the medication and states that it is $756. Shon states that he has spoken with his PCP office and that they are working on it. ALAINA contacted Dwain Mercado's nurse, [facility], and left a message in regards to the above. ALAINA spoke with JONO Whitley, in regards to the above as well. A: 63 y/o male admitted 05/14/18 for acute pancreatitis. P: Shon will return home with no anticipated services. He will F/U with PCP and plan of care as prescribed. Shon states that either his or son will transport when medically cleared.
--- NOTE | 2018-05-16 11:02 | CMPROGNOTE_ITS ---
- If Service Date Differs Date of service: 05/16/18 Time of Service: 10:55 Care Management Progress Note S/O: Shon is sitting up in his chair watching TV when this flex o writer operator visits. Shon checks in with ALAINA and states that he is feeling better today. CM discussed Shon' s Creon medication, he states that he was able to get it filled previously as he had BCBS, and now with his change in insurance to [facility], they will not cover the cost of the medication and states that it is $756. Shon states that he has spoken with his PCP office and that they are working on it. ALAINA contacted Dwain Mercado's nurse, [facility], and left a message in regards to the above. ALAINA spoke with JONO Whitley, in regards to the above as well. A: 63 y/o male admitted 05/14/18 for acute pancreatitis. P: Shon will return home with no anticipated services. He will F/U with PCP and plan of care as prescribed. Shon states that either his or son will transport when medically cleared.
[2018-05-16 11:45] VITALS: BP 122/74; PULSE 83; RESP 20; TEMP 36.5; O2SAT 96
[2018-05-16] MEDS: Insulin Aspart 300 UNITS/3 ML PEN SC (12:35)
[2018-05-16] MEDS: Normal Saline 1,000 ML 75 ML IV (12:35)
[2018-05-16] MEDS: Pantoprazole 40 MG VIAL IVP (12:36)
[2018-05-16] MEDS: Normal Saline Flush 10 ML SYR IVP (12:36)
[2018-05-16] MEDS: Enoxaparin 40 MG/0.4 ML SYR SC (12:36)
--- NOTE | 2018-05-16 15:30 | PGE_ITS ---
Assessment and Plan (1) Recurrent acute pancreatitis: Current visit: Yes Status: Acute Improving. He has a history of hypertriglyceridemia, his triglycerides have improved since his last hospitalization to 484 (previously 1755). Continue to have analgesics and antiemetics available. The plan is to advance his diet today, monitor him overnight. If he can tolerate his diet and continues to improve, he may be ready for discharge tomorrow. Will reassess labs in the morning. (2) Cardiomyopathy, alcoholic: Current visit: Yes Status: Acute He does have cardiomyopathy with most recent echocardiogram in November 2017 revealing mild to moderately reduced systolic function with LVEF of 30-35%. He does have an ICD in place. He is tolerating clear liquids, IV fluids have been discontinued. Continue to montior. (3) Diabetes mellitus type 2 in obese: Current visit: Yes Status: Acute His blood sugars are in an acceptable range. Continue fingersticks at AC& HS with sliding scale coverage per moderate protocol. Continue basal insulin at half of his home dose. Continue to monitor and adjust insulin accordingly. (4) Essential hypertension: Current visit: Yes Status: Acute Blood pressure stable. Continue to hold oral blood pressure medications and continue to monitor blood pressures. Plan to resume home regimen as he is able to take orals. (5) DVT prophylaxis: Current visit: No Status: Acute Subcutaneous Lovenox. (6) Discharge planning issues: Current visit: No Status: Acute He is a full code. This case was discussed with Dr. Martin who is in agreement. Subjective Interval history since last seen: Sonny Henning is a 63 year old man with a history of nonischemic cardiomyopathy status post subcutaneous ICD, insulin- dependent diabetes, coronary artery disease, hypertension, CHF and recurrent pancreatitis who is currently being treated for pancreatitis. He presented to the ED with abdominal pain, nausea and vomiting. His lipase was mildly elevated at 430, it increased the following day to 678. His white count was 15.26 on admission and normalized the following day. He was started on a clear liquid diet yesterday and has tolerated it well. Today his abdominal pain has improved significantly, he has no nausea today. He is interested in advancing his diet. He denies any chest pain/pressure, palpitations, shortness of breath, wheezing, cough, he denies any issues with his bowel or bladder function. He has been out ambulating in the halls. Exam Narrative Exam Narrative: General: He is a pleasant and cooperative, overweight man, appears stated age. He is in no acute distress. HEENT: Pupils are equal and round. Mucous membranes are moist. Neck: Supple without JVD. Respiratory: Respirations are even and unlabored, lung sounds are clear to auscultation throughout, no adventitious lung sounds noted throughout lung escudero. Cardiovascular: Heart has a regular rate and rhythm, non-tachycardic. Soft murmur noted at the right sternal border, second intercostal space. GI: Large round abdomen, soft, mildly distended, nontender on palpation. Hypoactive bowel sounds throughout. Extremities: Well perfused without clubbing cyanosis or edema. Peripheral pulses palpable. Skin: No rash or lesion noted. Objective Objective Clinical Data: Vital Signs Temperature 36.5 C 05/16/18 11:45 Temperature Source Tympanic 05/16/18 11:45 Pulse 83 05/16/18 11:45 Pulse Rhythm Regular 05/15/18 23:02 Respiratory Rate 20 05/16/18 11:45 Respiratory Effort Non-Labored 05/15/18 23:02 Respiratory Depth Normal 05/15/18 23:02 Respiratory Pattern Normal 05/15/18 23:02 Blood Pressure 122/74 05/16/18 11:45 Blood Pressure Position Sitting 05/14/18 08:53 Pulse Oximetry 96 05/16/18 11:45 Oxygen Delivery Method Room Air 05/16/18 11:45 Oxygen Flow Rate 0 05/16/18 11:45 Pain Level 2 05/16/18 04:52 Comment 05/15/18 12:09 Intake & Output 05/15/18 05/16/18 05/16/18 23:59 11:59 23:59 Intake Total 2430 / 2430 1700.000 / 1700.000 780 / 780 Output Total 700 / 700 650 / 650 Balance 1730 / 1730 1050.000 / 1050.000 780 / 780 Weight 115.1 kg Intake: IV 1000 / 1000 1000.000 / 1000.000 Oral 1430 / 1430 700 / 700 780 / 780 Output: Urine 700 / 700 650 / 650 Other: Urine Color Yellow Straw Urine Appearance Clear Voiding Methods Urinal Urinal Laboratory Results WBC 10.72 k/cumm (4.4-10.8) 05/15/18 06:45 RBC 4.32 m/cumm (4.50-6.00) L 05/15/18 06:45 Hgb 14.1 g/dL (13.5-17.5) 05/15/18 06:45 Hct 42.7 % (40.0-50.0) 05/15/18 06:45 MCV 98.8 fL (80-95) H 05/15/18 06:45 MCH 32.6 pg (27.0-33.0) 05/15/18 06:45 MCHC 33.0 g/dL (32.0-36.0) 05/15/18 06:45 RDW 14.5 % (11.8-14.1) H 05/15/18 06:45 Plt Count 321 x1000/uL (130-400) 05/15/18 06:45 MPV 11.4 fL (8.0-11.0) H 05/15/18 06:45 Immature Gran % 0.1 05/15/18 06:45 Neutrophils % 48.3 05/15/18 06:45 Lymphocytes % 38.8 05/15/18 06:45 Monocytes % 11.0 05/15/18 06:45 Eosinophils % 1.6 05/15/18 06:45 Basophils % 0.2 05/15/18 06:45 Absolute Neutrophils 5.18 k/cumm (1.2-6.7) 05/15/18 06:45 Absolute Lymphocytes 4.16 k/cumm (1.2-3.4) H 05/15/18 06:45 Absolute Monocytes 1.18 k/cumm (0.11-0.7) H 05/15/18 06:45 Absolute Eosinophils 0.17 k/cumm (0.0-0.7) 05/15/18 06:45 Absolute Basophils 0.02 k/cumm (0.0-0.2) 05/15/18 06:45 Sodium 138 mmol/L (136-145) 05/15/18 06:45 Potassium 3.7 mmol/L (3.5-5.1) 05/15/18 06:45 Chloride 103 mmol/L (98-107) 05/15/18 06:45 Carbon Dioxide 27.0 mmol/L (21.0-32.0) 05/15/18 06:45 Anion Gap 8.0 mmol/L (3-11) 05/15/18 06:45 BUN 17 mg/dL (7-18) D 05/15/18 06:45 Creatinine 1.04 mg/dL (0.70-1.30) 05/15/18 06:45 Estimated GFR/1.73 m2 >= 60.00 (mL/min/1.73m2) 05/15/18 06:45 Glucose 142 mg/dL (70-100) H D 05/15/18 06:45 Calcium 8.5 mg/dL (8.5-10.1) 05/15/18 06:45 Magnesium 2.0 mg/dL (1.8-2.4) 05/15/18 06:45 Total Bilirubin 0.7 mg/dL (0.2-1.0) 05/15/18 06:45 Conjugated Bilirubin 0.15 mg/dL (0.00-0.20) 05/15/18 06:45 AST 16 U/L (15-37) 05/15/18 06:45 ALT 23 U/L (12-78) 05/15/18 06:45 Alkaline Phosphatase 56 U/L (46-116) 05/15/18 06:45 Total Protein 6.8 g/dL (6.4-8.2) 05/15/18 06:45 Albumin 3.0 g/dL (3.4-5.0) L 05/15/18 06:45 Triglycerides 484 mg/dL (30-150) H 05/15/18 06:45 Total Cholesterol 178 mg/dL (50-200) 05/15/18 06:45 LDL Cholesterol Direct 83 mg/dL (<100) 05/15/18 06:45 HDL Cholesterol 24 mg/dL (40-60) L 05/15/18 06:45 Lipase 678 U/L (73-393) H 05/15/18 06:45
[2018-05-16 15:41] VITALS: BP 138/76; PULSE 85; RESP 18; TEMP 36.9; O2SAT 96
[2018-05-16 21:19] VITALS: BP 125/82; PULSE 74; RESP 19; TEMP 36.6; O2SAT 96
[2018-05-17 00:22] VITALS: BP 107/68; PULSE 74; RESP 18; TEMP 36.9; O2SAT 96
[2018-05-17] MEDS: Normal Saline 1,000 ML 75 ML IV ×2 (01:36→13:51)
[2018-05-17 04:09] VITALS: BP 111/71; PULSE 77; RESP 16; TEMP 37; O2SAT 96
[2018-05-17 07:49] LABS: Abs Immature Grans 0.02 k/cumm (0.0-0.09); Absolute Basophil Count 0.03 k/cumm (0.0-0.2); Absolute Eosinophil Count 0.42 k/cumm (0.0-0.7); Absolute Lymphocyte Count 3.84 k/cumm (1.2-3.4); Absolute Monocyte Count 0.97 k/cumm (0.11-0.7); Absolute Neutrophil Count 5.29 k/cumm (1.2-6.7); Basophils % 0.3; HCT 41.7 % (40.0-50.0); HGB 14.2 g/dL (13.5-17.5); Immature Grans % 0.2; Lymphocytes % 36.3; Mean Corp. HGB Concentration 34.1 g/dL (32.0-36.0); Mean Corpuscular Hemoglobin 32.9 pg (27.0-33.0); Mean Corpuscular Volume 96.5 fL (80-95); Mean Platelet Volume 11.5 fL (8.0-11.0); Monocytes % 9.2; Platelet Count 323 x1000/uL (130-400); RBC 4.32 m/cumm (4.50-6.00); RBC Distribution Width 13.9 % (11.8-14.1); White Blood Cell Count 10.57 k/cumm (4.4-10.8)
[2018-05-17 07:50] VITALS: BP 134/77; PULSE 80; RESP 16; TEMP 37.1; O2SAT 96
[2018-05-17 07:52] LABS: Lipase 82 U/L (73-393)
[2018-05-17] MEDS: Insulin Glargine 300 UNITS/3 ML PEN 30 UNITS SC ×2 (08:22→21:14)
[2018-05-17] MEDS: Enoxaparin 40 MG/0.4 ML SYR SC (11:56)
[2018-05-17] MEDS: Normal Saline Flush 10 ML SYR IVP ×2 (11:57→15:05)
[2018-05-17] MEDS: Pantoprazole 40 MG VIAL IVP (11:57)
[2018-05-17] MEDS: Insulin Aspart 300 UNITS/3 ML PEN SC ×2 (11:57→16:58)
[2018-05-17 13:07] VITALS: BP 134/85; PULSE 76; RESP 17; TEMP 36.3; O2SAT 96
--- NOTE | 2018-05-17 14:00 | CMPROGNOTE_ITS ---
- If Service Date Differs Date of service: 05/17/18 Time of Service: 13:58 Care Management Progress Note S/O: ALAINA met with Shon this morning, who reports that he is feeling much better. ALAINA discussed the application for [facility], and Shon states that there are still some areas that he needs to complete. Shon states that he also spoke with financial assistance for Creon, and that it will most likely be covered, to where he will have no copay. Shon states that he continues to work on the above forms. ALAINA spoke with [facility], Pharmacy, as Shon has only one days worth of Creon left at home, at time of DC, [facility] may need to assist with the Creon medication so that Shon has enough until he can obtain his prescription. ALAINA spoke with Dr. Sheldon, and he states that Shon is not ready for DC today and that he may potentially be ready tomorrow. A: 63 y/o male admitted 05/14/18 for acute pancreatitis. P: Shon will return home once medically cleared with no anticipated services. He will F/U with PCP and plan of care as prescribed. Shon's or son to transport when ready.
[2018-05-17 16:22] VITALS: BP 128/78; PULSE 85; RESP 18; TEMP 36.7; O2SAT 96
--- NOTE | 2018-05-17 19:02 | W.PM.PROGNOT ---
Assessment and Plan (1) Recurrent acute pancreatitis: Current visit: Yes Status: Acute Improved/resolved. Patient has a history of hypertriglyceridemia, currently well treated with a value of 484 compared to 1755 previously. He is also abstinent from alcohol. Lipase normalized and patient tolerating diet. Please note that he has had a history of recurrence of symptoms soon following discharge. He will be kept and monitored for an additional 24 hours prior to planned discharge tomorrow morning. (2) Cardiomyopathy, alcoholic: Current visit: Yes Status: Acute NICMP with last ECHO in November 2017 showing LVEF of 30-35%. AICD in place. Appears euvolemic. Restart home regimen of BB, MEE-I, K+ Sparing agent, and low dose furosemide with hold parameters. (3) Diabetes mellitus type 2 in obese: Current visit: Yes Status: Acute Continue current half dose basal insulin on BID basis, along with sliding scale coverage and ADA Diet. (4) Essential hypertension: Current visit: Yes Status: Acute Restart cardiac regimen as above with low dose Carvedilol, Lisinopril, and spironolactone. (5) DVT prophylaxis: Current visit: No Status: Acute Subcutaneous Lovenox. (6) Discharge planning issues: Current visit: No Status: Acute Full code. Subjective Interval history since last seen: Patient is a 63 year old man with a history of NICMP s/p AICD, ETOH abuse in remission, Hypertriglyceridemia, insulin-dependent diabetes, and recurrent pancreatitis admitted from [facility] Emergency Department on 05/14 with evidence of recurrent pancreatitis. Mr. Henning initially presented to the ED with abdominal pain, nausea and vomiting. His lipase was mildly elevated at 430, which increased the following day to 678. His white count was 15.26 on admission and normalized the following day. The patient was admitted last September and treated for pancreatitis in the setting of significantly elevated triglyceride levels, at that time with a value of 1755. His current TG values are minimally elevated in the 400 range. He has also been sober for over 2 years. This morning the patient reports essential resolution of abdominal pain with tolerance of a regular diet. Lipase this monrnig was normal as well. No overnight events reported. Remains afebrile. Exam Narrative Exam Narrative: General: Patient appears comfortable, AAOX3, NAD Neck: Supple CV: Regular, nontachycardic, S1S2, No rubs, murmurs, or gallops. Pulmonary: Clear to auscultation bilaterally, no crackles, wheezing, or rhonchi Abdomen: + Bowel Sounds, soft, nontender, nondistended Vascular: No lower extremity edema Psych: Normal mood and affect. Objective Objective Clinical Data: Abnormal lab results 05/17/18 Range/Units 07:25 RBC 4.32 L (4.50-6.00) m/cumm MCV 96.5 H (80-95) fL MPV 11.5 H (8.0-11.0) fL Absolute Lymphocytes 3.84 H (1.2-3.4) k/cumm Absolute Monocytes 0.97 H (0.11-0.7) k/cumm Vital Signs Temperature 36.7 C 05/17/18 16:22 Temperature Source Tympanic 05/17/18 16:22 Pulse 85 05/17/18 16:22 Pulse Rhythm Regular 05/17/18 07:50 Respiratory Rate 18 05/17/18 16:22 Respiratory Effort Non-Labored 05/17/18 07:50 Respiratory Depth Normal 05/17/18 07:50 Respiratory Pattern Normal 05/17/18 07:50 Blood Pressure 128/78 05/17/18 16:22 Blood Pressure Position Sitting 05/14/18 08:53 Pulse Oximetry 96 05/17/18 16:22 Oxygen Delivery Method Room Air 05/17/18 16:22 Oxygen Flow Rate 0 05/17/18 16:22 Pain Level 0 05/16/18 20:15 Comment 05/15/18 12:09 Intake & Output 05/16/18 05/17/18 05/17/18 23:59 11:59 23:59 Intake Total 1020 / 1020 996.25 / 996.25 1488.75 / 1488.75 Balance 1020 / 1020 996.25 / 996.25 1488.75 / 1488.75 Weight 114.6 kg Intake: IV 996.25 / 996.25 1238.75 / 1238.75 Oral 1020 / 1020 250 / 250 Other: Comment voiding independently overnight no complications Voiding Methods Toilet Toilet Laboratory Results WBC 10.57 k/cumm (4.4-10.8) 05/17/18 07:25 RBC 4.32 m/cumm (4.50-6.00) L 05/17/18 07:25 Hgb 14.2 g/dL (13.5-17.5) 05/17/18 07:25 Hct 41.7 % (40.0-50.0) 05/17/18 07:25 MCV 96.5 fL (80-95) H 05/17/18 07:25 MCH 32.9 pg (27.0-33.0) 05/17/18 07:25 MCHC 34.1 g/dL (32.0-36.0) 05/17/18 07:25 RDW 13.9 % (11.8-14.1) 05/17/18 07:25 Plt Count 323 x1000/uL (130-400) 05/17/18 07:25 MPV 11.5 fL (8.0-11.0) H 05/17/18 07:25 Immature Gran % 0.2 05/17/18 07:25 Neutrophils % 50.0 05/17/18 07:25 Lymphocytes % 36.3 05/17/18 07:25 Monocytes % 9.2 05/17/18 07:25 Eosinophils % 4.0 05/17/18 07:25 Basophils % 0.3 05/17/18 07:25 Absolute Neutrophils 5.29 k/cumm (1.2-6.7) 05/17/18 07:25 Absolute Lymphocytes 3.84 k/cumm (1.2-3.4) H 05/17/18 07:25 Absolute Monocytes 0.97 k/cumm (0.11-0.7) H 05/17/18 07:25 Absolute Eosinophils 0.42 k/cumm (0.0-0.7) 05/17/18 07:25 Absolute Basophils 0.03 k/cumm (0.0-0.2) 05/17/18 07:25 Sodium 138 mmol/L (136-145) 05/15/18 06:45 Potassium 3.7 mmol/L (3.5-5.1) 05/15/18 06:45 Chloride 103 mmol/L (98-107) 05/15/18 06:45 Carbon Dioxide 27.0 mmol/L (21.0-32.0) 05/15/18 06:45 Anion Gap 8.0 mmol/L (3-11) 05/15/18 06:45 BUN 17 mg/dL (7-18) D 05/15/18 06:45 Creatinine 1.04 mg/dL (0.70-1.30) 05/15/18 06:45 Estimated GFR/1.73 m2 >= 60.00 (mL/min/1.73m2) 05/15/18 06:45 Glucose 142 mg/dL (70-100) H D 05/15/18 06:45 Calcium 8.5 mg/dL (8.5-10.1) 05/15/18 06:45 Magnesium 2.0 mg/dL (1.8-2.4) 05/15/18 06:45 Total Bilirubin 0.7 mg/dL (0.2-1.0) 05/15/18 06:45 Conjugated Bilirubin 0.15 mg/dL (0.00-0.20) 05/15/18 06:45 AST 16 U/L (15-37) 05/15/18 06:45 ALT 23 U/L (12-78) 05/15/18 06:45 Alkaline Phosphatase 56 U/L (46-116) 05/15/18 06:45 Total Protein 6.8 g/dL (6.4-8.2) 05/15/18 06:45 Albumin 3.0 g/dL (3.4-5.0) L 05/15/18 06:45 Triglycerides 484 mg/dL (30-150) H 05/15/18 06:45 Total Cholesterol 178 mg/dL (50-200) 05/15/18 06:45 LDL Cholesterol Direct 83 mg/dL (<100) 05/15/18 06:45 HDL Cholesterol 24 mg/dL (40-60) L 05/15/18 06:45 Lipase 82 U/L (73-393) 05/17/18 07:25
[2018-05-17 20:04] VITALS: BP 117/70; PULSE 71; RESP 18; TEMP 36.6; O2SAT 95
[2018-05-17] MEDS: Carvedilol 25 MG TAB 12.5 MG PO (21:12)
[2018-05-17] MEDS: Atorvastatin 10 MG TAB PO (21:13)
[2018-05-18 00:19] VITALS: BP 144/84; PULSE 74; RESP 16; TEMP 36.7; O2SAT 98
[2018-05-18 03:34] VITALS: BP 106/68; PULSE 77; RESP 16; TEMP 36.6; O2SAT 97
[2018-05-18] MEDS: Normal Saline 1,000 ML 75 ML IV (03:36)
[2018-05-18 07:20] VITALS: BP 126/70; PULSE 79; RESP 17; TEMP 36.4; O2SAT 94
[2018-05-18] MEDS: Magnesium Oxide 400 MG TAB PO (07:50)
[2018-05-18] MEDS: Lisinopril 5 MG TAB 2.5 MG PO (07:50)
[2018-05-18] MEDS: Furosemide 20 MG TAB PO (07:50)
[2018-05-18] MEDS: Carvedilol 25 MG TAB 12.5 MG PO (07:50)
[2018-05-18] MEDS: Multivitamin TAB 1 TAB PO (07:50)
[2018-05-18] MEDS: Spironolactone 25 MG TAB PO (07:51)
[2018-05-18] MEDS: Insulin Glargine 300 UNITS/3 ML PEN 30 UNITS SC (07:52)
[2018-05-18 08:09] LABS: Lipase 69 U/L (73-393)
--- NOTE | 2018-05-18 13:16 | DSE_ITS ---
Date of service: 05/18/18 DS: Diagnosis Discharge Diagnosis (1) Recurrent acute pancreatitis: Status: Acute (2) Cardiomyopathy, alcoholic: Status: Acute (3) Diabetes mellitus type 2 in obese: Status: Acute (4) Essential hypertension: Status: Acute (5) DVT prophylaxis: Status: Acute (6) Discharge planning issues: Status: Acute Discharge Plan Disposition Patient Disposition: HOME Condition: Improving Discharge Details Reason For Visit: ACUTE PANCREATITIS Admit Date/Time: 05/14/18 10:48 Admit Provider: Katty Martin Attending Provider: Katty Martin Primary Care Provider: Dwain Mercado Hospital Course Hospital Course: Patient is a 63 year old man with a history of NICMP s/p AICD, ETOH abuse in remission, Hypertriglyceridemia, insulin-dependent diabetes, and recurrent pancreatitis admitted from [facility] Emergency Department on 05/14 with evidence of recurrent pancreatitis. Mr. Henning initially presented to the ED with abdominal pain, nausea and vomiting. His lipase was mildly elevated at 430, which increased the following day to 678. His white count was 15.26 on admission and normalized the following day. The patient was admitted last September and treated for pancreatitis in the setting of significantly elevated triglyceride levels, at that time with a value of 1755. His current TG values are minimally elevated in the 400 range. He has also been sober for over 2 years. Yesterday morning the patient reports essential resolution of abdominal pain with tolerance of a regular diet. Lipase continues to remain normal as well. He was kept one additional night and he remains medically stable with no overnight events reported. Remains afebrile and symptom free. Home Meds and New Rx's Prescriptions: Continue lisinopril 10 MG tablet 2.5 mg PO DAILY Qty: 30 RF: 11 carvedilol 25 MG tablet 12.5 mg PO BID Qty: 60 RF: 11 ranitidine HCl 150 MG capsule 300 mg PO DAILY RF: 0 furosemide 20 MG tablet 20 mg PO DAILY RF: 0 multivitamin [Multiple Vitamins] 1 TAB tablet 1 tab PO DAILY Qty: 30 RF: 0 magnesium oxide 400 MG tablet 400 mg PO DAILY Qty: 30 RF: 0 qjocrp-[id number] [Creon] 1 EACH capsule,delayed release(DR/EC) 2 ea PO BID RF: 0 atorvastatin 10 mg Tablet 10 mg PO .QHS RF: 0 spironolactone 25 mg Tablet 25 mg PO DAILY RF: 0 insulin lispro [Humalog KwikPen Insulin] 100 UNIT/ML insulin pen 10 unit SQ DAILY RF: 0 insulin detemir U-100 [Levemir FlexTouch U-100 Insuln] 100 UNIT/ML insulin pen 60 units SQ QPM RF: 0 insulin detemir U-100 [Levemir FlexTouch U-100 Insuln] 100 UNIT/ML insulin pen 60 units SQ QAM RF: 0 fenofibrate 160 MG tablet 160 mg PO DAILY Qty: 30 RF: 0 Discharge Instructions Instructions: Pancreatitis (DC) Additional Instructions: Continue usual medications as prescribed Stand Alone Forms: Nursing Discharge Form Referrals: Dwain Mercado [Primary Care Provider] - (Please john paul your PCP to schedule a follow up appointment for within 2 weeks. [phone]) Activity:: Activity as Tolerated Equipment/Supplies:: No Equipment Needed Diet:: As Tolerated Discharge Orders Discharge Orders: Discharge Order (Routine); Ordered 05/18/18 Ordered By: Giovana Blount Discharge Data Discharge Date/Time-TO BE ENTERED AT DEPARTURE: 05/18/18 11:25 Exam Const General: cooperative, comfortable and no acute distress HENMT Head: normocephalic and atraumatic Resp Effort & Inspection: normal respiratory effort Auscultation: clear to auscultation bilaterally Cardio Rate: regular rate Rhythm: regular rhythm GI Inspection: normal to inspection Palpation: soft, no guarding and nontender Auscultation: normal bowel sounds Skin General skin exam: no rashes or lesions noted Neuro General: alert and oriented x3 Cognition: normal cognition Speech: speech normal Gait: normal gait Motor: muscle tone normal throughout Extrem General: normal to inspection and full ROM Psych Appearance: grossly normal Affect: normal affect Attitude: cooperative Thought Content: normal Insight: insight good DS: Data Vitals/I&O Vitals and I&O: Vital Signs Temperature 36.4 C L 05/18/18 07:20 Temperature Source Tympanic 05/18/18 07:20 Pulse 79 05/18/18 07:20 Pulse Rhythm Regular 05/18/18 07:50 Respiratory Rate 17 05/18/18 07:20 Respiratory Effort Non-Labored 05/18/18 07:50 Respiratory Depth Normal 05/18/18 07:50 Respiratory Pattern Normal 05/18/18 07:50 Blood Pressure 126/70 05/18/18 07:20 Blood Pressure Position Sitting 05/14/18 08:53 Pulse Oximetry 94 L 05/18/18 07:20 Oxygen Delivery Method Room Air 05/18/18 07:20 Oxygen Flow Rate 0 05/18/18 07:20 Pain Level 0 05/18/18 07:20 Comment 05/15/18 12:09 Intake & Output 05/17/18 05/18/18 05/18/18 23:59 11:59 23:59 Intake Total 1728.75 / 1728.75 1543.75 / 1543.75 Balance 1728.75 / 1728.75 1543.75 / 1543.75 Weight 114.6 kg Intake: IV 1238.75 / 1238.75 1183.75 / 1183.75 Oral 490 / 490 360 / 360 Other: Comment patient voiding independently in bathroom, urine not viewed, patient denies complications Pt toileting independently. Voiding Methods Toilet Toilet Labs on day of discharge: Labs from last 24 hours 05/18/18 07:23 Lipase 69 L
--- NOTE | 2018-05-18 14:27 | PDOC.CMDIS ---
- If Service Date Differs Date of service: 05/18/18 Time of Service: 14:27 LACE Index Scoring Tool - Questions: Length of Stay (in days): 4 - 6 Acuity (Admit via E.D.?): Yes Comorbidities: Diabetes w/o Complication E.D. Visits: 5 - Answers: Total Score: 12 Risk of Readmission: High Risk Care Management Discharge Reason for Hospitalization: Acute pancreatitis. Discharge Plan: Shon will return home today with no services. He will F/U with PCP and plan of care as prescribed. Shon has the information for [facility] pharmacy, as well as for the financial assistance for [employer]. Shon's son will transport home. Patient/Family Education Needs: Review DC instructions, any limitations, and discuss 'Ask Me Three'
== END 2018-05-18 11:25 | disposition home or self-care (01) | DRG 439 ==
LOC: ER 09:07 → MS 11:46
PROVIDERS: Nurse Practitioner; Admitting Provider Internal Medicine; Emergency Provider Student in an Organized Health Care Education/Training Program; PCP Specialist/Technologist Athletic Trainer; Visit Provider Internal Medicine
DX: K85.90 Acute pancreatitis without necrosis or infection, unspecified (principal); I42.6 Alcoholic cardiomyopathy; K86.1 Other chronic pancreatitis; F10.11 Alcohol abuse, in remission; E11.9 Type 2 diabetes mellitus without complications; E66.9 Obesity, unspecified; Z68.33 Body mass index [BMI] 33.0-33.9, adult; E78.1 Pure hyperglyceridemia; Z79.4 Long term (current) use of insulin; Z95.810 Presence of automatic (implantable) cardiac defibrillator; I10 Essential (primary) hypertension
CPT/HCPCS: 36415; 80048; 80053; 80061; 80076; 83690; 83721; 96361; 96374; 96375; 99222; 99232; 99238; 99285; J1650; 83735; 85025; 99284; J2765

== ENCOUNTER 2018-05-21 10:00 | Outpatient (RCR) | payer MEDICARE, OTHER, BC, SELFPAY | END 2018-05-21 23:59 | disposition home or self-care (01) | LOC: CR 10:00 | PROVIDERS: PCP Specialist/Technologist Athletic Trainer; Visit Provider Family Medicine | DX: I50.9 Heart failure, unspecified (principal); Z95.810 Presence of automatic (implantable) cardiac defibrillator; I10 Essential (primary) hypertension; Z51.89 Encounter for other specified aftercare | CPT/HCPCS: S9472 ==

== ENCOUNTER 2018-05-22 03:42 | Outpatient (RCR) | payer MEDICARE, OTHER, SELFPAY | END 2018-06-20 23:59 | disposition home or self-care (01) | LOC: CR 03:42 | PROVIDERS: PCP Specialist/Technologist Athletic Trainer; Visit Provider Family Medicine | DX: I50.9 Heart failure, unspecified (principal); Z95.810 Presence of automatic (implantable) cardiac defibrillator; I10 Essential (primary) hypertension; Z51.89 Encounter for other specified aftercare | CPT/HCPCS: S9472 ==

== ENCOUNTER 2018-06-09 07:57 | Outpatient (CLI) | payer MEDICARE, OTHER, SELFPAY ==
[2018-06-09 10:40] LABS: Anion Gap 10.8 mmol/L (3-11); CO2 25.2 mmol/L (21.0-32.0); Chloride 99 mmol/L (98-107); Sodium 135 mmol/L (136-145)
[2018-06-09 12:08] LABS: ALT 23 U/L (12-78); AST 20 U/L (15-37); Albumin 3.8 g/dL (3.4-5.0); Alkaline Phosphatase 86 U/L (46-116); BUN 19 mg/dL (7-18); Bilirubin, Total 0.4 mg/dL (0.2-1.0); CREATININE 1.33 mg/dL (0.70-1.30); Estimated GFR 53.96 (mL/min/1.73m2); Glucose 241 mg/dL (70-100); Total Protein 7.3 g/dL (6.4-8.2)
[2018-06-09 12:10] LABS: Calcium 9.4 mg/dL (8.5-10.1)
[2018-06-09 12:21] LABS: PHOSPHORUS 1.8 mg/dL (2.6-4.7)
[2018-06-10 17:05] LABS: Fructosamine 368 mcmol/L (200 - 285)
== END 2018-06-09 08:17 ==
PROVIDERS: PCP Specialist/Technologist Athletic Trainer; Visit Provider Internal Medicine Endocrinology, Diabetes & Metabolism
DX: E11.65 Type 2 diabetes mellitus with hyperglycemia (principal)
CPT/HCPCS: 36415; 80053; 82985; 83036; 84100

== ENCOUNTER 2018-06-19 14:52 | Inpatient (IN) | payer MEDICARE, OTHER, SELFPAY ==
[2018-06-19] VITALS (93 sets, daily range): BP systolic 129–152; BP diastolic 70–86; PULSE 68–88; RESP 3–26; TEMP 36.4–36.6; O2SAT 87–100
--- NOTE | 2018-06-19 15:07 | W.ED.GENAD ---
Discharge Plan Disposition Patient Disposition: [facility] INPATIENT Condition: Stable Discharge Details Chief Complaint: Abd Prob Clinical Impression: Pancreatitis, Hyperglycemia due to type 1 diabetes mellitus Reason For Visit: PANCREATITIS, HYPERGLYCEMIA Admit Date/Time: 06/19/18 18:45 Admit Provider: Kalyan Bauer Attending Provider: Kalyan Bauer Primary Care Provider: Dwain Mercado ED Provider: Ortega Frias Discharge Data Discharge Date/Time-TO BE ENTERED AT DEPARTURE: 06/19/18 22:07 Medical Decision Making <KE Parra - Last Filed: 06/21/18 11:42> Note was begun and then down time occurred. Please see paper charting for my information. At the end of my shift, computer came back up. Care transitioned to Emilio Frias NP. <Ortega Frias NP - Last Filed: 06/19/18 22:23> Please see downtime documentation for initial presentation. Patient was signed out to me by Sandra Murry pending results with high clinical suspicion of pancreatitis and hyperglycemia. Patient has been rationing his insulin and not been taking his Creon due to insurance issues. Patient states blood sugar this morning over 600 and that he started having his typical chronic pancreatitis pain. Labs were were reviewed and show elevated triglycerides, elevated lipase, and elevated glucose. Prior to my examining patient patient had 2 L of fluids, hydromorphone, and Zofran. After review of potassium that is 3.6 and patient stating that he took his own insulin prior to arrival I did repeat a BNP, fingerstick and gave patient additional pain medication due to him stating pain increase. Otherwise I agree with previous physical exam and patient has had no change in condition. I do not feel that imaging is needed given the patient has chronic pancreatitis and given less than 12 hours of symptoms I doubt abscess at this time but it is considered. 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 Troponin was negative. Did speak to the hospitalist in regards to admission of the patient and patient was accepted for admission for pancreatitis, and hyperglycemia. HPI <KE Parra - Last Filed: 06/21/18 11:42> General Date/Time Provider Initiated Documentation: 06/19/18 14:55. Related Data Home Medications Medication Instructions Recorded Confirmed multivitamin [Multiple Vitamins] 1 tab PO DAILY #30 tab 01/28/16 06/19/18 lisinopril 2.5 mg PO DAILY #30 tab-cap 09/05/16 06/19/18 magnesium oxide 400 mg PO DAILY #30 tab 01/20/17 06/19/18 carvedilol 12.5 mg PO BID #60 tab-cap 03/20/17 06/19/18 [id number] [Creon] 2 ea PO BID 05/07/17 05/14/18 insulin detemir U-100 [Levemir 60 units SQ QAM 06/13/17 06/19/18 FlexTouch U-100 Insuln] insulin detemir U-100 [Levemir 60 units SQ QPM 06/13/17 06/19/18 FlexTouch U-100 Insuln] insulin lispro [Humalog KwikPen 33 unit SQ DAILY 06/13/17 06/19/18 Insulin] fenofibrate 160 mg PO DAILY #30 tablet 10/02/17 05/14/18 furosemide 20 mg PO DAILY tab-cap 12/04/17 06/19/18 ranitidine HCl 300 mg PO DAILY tab-cap 12/04/17 06/19/18 atorvastatin 10 mg PO .QHS 05/14/18 06/19/18 spironolactone 25 mg PO DAILY 05/14/18 06/19/18 Previous Rx's Medication Instructions Recorded multivitamin [Multiple Vitamins] 1 tab PO DAILY #30 tab 01/28/16 magnesium oxide 400 mg PO DAILY #30 tab 01/20/17 fenofibrate 160 mg PO DAILY #30 tablet 10/02/17 Allergies Allergy/AdvReac Type Severity Reaction Status Date / Time No Known Allergies Allergy Unverified 06/19/18 15:03 General Stated Complaint: Abd Prob KOLBY: 3 Course <KE Parra - Last Filed: 06/21/18 11:42> Vital Signs Temperature 36.4 C L 06/19/18 14:59 Pulse 81 06/19/18 14:59 Respiratory Rate 21 06/19/18 14:59 Blood Pressure 152/86 H 06/19/18 14:59 Pulse Oximetry 93 L 06/19/18 14:59 Temperature 36.4 C L 06/19/18 14:59 Temperature Source Temporal Artery Scan 06/19/18 14:59 Pulse 81 06/19/18 14:59 Respiratory Rate 21 06/19/18 14:59 Respiratory Effort Non-Labored 06/19/18 15:02 Blood Pressure 152/86 H 06/19/18 14:59 Pulse Oximetry 93 L 06/19/18 14:59 Oxygen Delivery Method Room Air 06/19/18 14:59 Oxygen Flow Rate 0 06/19/18 14:59 Pain Level 9 06/19/18 14:59 Sign Out <KE Parra - Last Filed: 06/21/18 11:42> Sign Out Data: Sign Out Comment: Care transitioned to Emilio Frias NP. Working diagnosis pancreatitis, hyperglycemia with labs pending. Last updated by Sandra Murry PA at 06/19/18 17:14
[2018-06-19] MEDS: Normal Saline 1,000 ML 1000 ML IV ×2 (15:30→17:27)
[2018-06-19 15:32] LABS: Abs Immature Grans 0.03 k/cumm (0.0-0.09); Absolute Basophil Count 0.04 k/cumm (0.0-0.2); Absolute Eosinophil Count 0.16 k/cumm (0.0-0.7); Absolute Lymphocyte Count 3.34 k/cumm (1.2-3.4); Absolute Monocyte Count 1.19 k/cumm (0.11-0.7); Basophils % 0.3; Eosinophils % 1.2; HCT 44.8 % (40.0-50.0); HGB 15.9 g/dL (13.5-17.5); Immature Grans % 0.2; Lymphocytes % 25.6; Mean Corp. HGB Concentration 35.5 g/dL (32.0-36.0); Mean Corpuscular Hemoglobin 33.5 pg (27.0-33.0); Mean Corpuscular Volume 94.3 fL (80-95); Mean Platelet Volume 11.8 fL (8.0-11.0); Monocytes % 9.1; Neutrophils % 63.6; Platelet Count 274 x1000/uL (130-400); RBC 4.75 m/cumm (4.50-6.00); RBC Distribution Width 14.2 % (11.8-14.1); White Blood Cell Count 13.05 k/cumm (4.4-10.8)
[2018-06-19] MEDS: Ondansetron 4 MG/2 ML VIAL (16:10)
[2018-06-19] MEDS: HYDROmorphone 2 MG/ML VIAL (16:15)
[2018-06-19 16:48] LABS: Albumin 3.6 g/dL (3.4-5.0); Alkaline Phosphatase 110 U/L (46-116); BUN 20 mg/dL (7-18); Bilirubin, Total 0.5 mg/dL (0.2-1.0); CREATININE 1.11 mg/dL (0.70-1.30); Calcium 9.1 mg/dL (8.5-10.1); Glucose 423 mg/dL (70-100); Sodium 130 mmol/L (136-145); Total Protein 8.2 g/dL (6.4-8.2)
[2018-06-19 16:49] LABS: ALT 26 U/L (12-78); AST 21 U/L (15-37); Chloride 93 mmol/L (98-107); Potassium 3.6 mmol/L (3.5-5.1)
[2018-06-19 16:52] LABS: Troponin I < 0.02 ng/mL (0.00-0.06)
[2018-06-19 16:55] LABS: Lipase 443 U/L (73-393)
[2018-06-19 16:59] LABS: Triglyceride 2690 mg/dL (30-150)
--- NOTE | 2018-06-19 17:12 | ED.GENADUL_ITS ---
Discharge Plan Disposition Patient Disposition: [facility] INPATIENT Condition: Stable Discharge Details Chief Complaint: Abd Prob Clinical Impression: Pancreatitis, Hyperglycemia due to type 1 diabetes mellitus Reason For Visit: PANCREATITIS, HYPERGLYCEMIA Admit Date/Time: 06/19/18 18:45 Admit Provider: Klayan Bauer Attending Provider: Kalyan Bauer Primary Care Provider: Dwain Mercado ED Provider: Ortega Frias Discharge Data Discharge Date/Time-TO BE ENTERED AT DEPARTURE: 06/19/18 22:07 Medical Decision Making <KE Parra - Last Filed: 06/21/18 11:42> Note was begun and then down time occurred. Please see paper charting for my information. At the end of my shift, computer came back up. Care transitioned to Emilio Frias NP. <Ortega Frias NP - Last Filed: 06/19/18 22:23> Please see downtime documentation for initial presentation. Patient was signed out to me by Sandra Murry pending results with high clinical suspicion of pancreatitis and hyperglycemia. Patient has been rationing his insulin and not been taking his Creon due to insurance issues. Patient states blood sugar this morning over 600 and that he started having his typical chronic pancreatitis pain. Labs were were reviewed and show elevated triglycerides, elevated lipase , and elevated glucose. Prior to my examining patient patient had 2 L of fluids , hydromorphone, and Zofran. After review of potassium that is 3.6 and patient stating that he took his own insulin prior to arrival I did repeat a BNP, fingerstick and gave patient additional pain medication due to him stating pain increase. Otherwise I agree with previous physical exam and patient has had no change in condition. I do not feel that imaging is needed given the patient has chronic pancreatitis and given less than 12 hours of symptoms I doubt abscess at this time but it is considered. 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 Troponin was negative. Did speak to the hospitalist in regards to admission of the patient and patient was accepted for admission for pancreatitis, and hyperglycemia. HPI <KE Parra - Last Filed: 06/21/18 11:42> General Date/Time Provider Initiated Documentation: 06/19/18 14:55 . Related Data Home Medications Medication Instructions Recorded Confirmed multivitamin [Multiple Vitamins] 1 tab PO DAILY #30 tab 01/28/16 06/19/18 lisinopril 2.5 mg PO DAILY #30 tab-cap 09/05/16 06/19/18 magnesium oxide 400 mg PO DAILY #30 tab 01/20/17 06/19/18 carvedilol 12.5 mg PO BID #60 tab-cap 03/20/17 06/19/18 [id number] [Creon] 2 ea PO BID 05/07/17 05/14/18 insulin detemir U-100 [Levemir 60 units SQ QAM 06/13/17 06/19/18 FlexTouch U-100 Insuln] insulin detemir U-100 [Levemir 60 units SQ QPM 06/13/17 06/19/18 FlexTouch U-100 Insuln] insulin lispro [Humalog KwikPen 33 unit SQ DAILY 06/13/17 06/19/18 Insulin] fenofibrate 160 mg PO DAILY #30 tablet 10/02/17 05/14/18 furosemide 20 mg PO DAILY tab-cap 12/04/17 06/19/18 ranitidine HCl 300 mg PO DAILY tab-cap 12/04/17 06/19/18 atorvastatin 10 mg PO .QHS 05/14/18 06/19/18 spironolactone 25 mg PO DAILY 05/14/18 06/19/18 Previous Rx's Medication Instructions Recorded multivitamin [Multiple Vitamins] 1 tab PO DAILY #30 tab 01/28/16 magnesium oxide 400 mg PO DAILY #30 tab 01/20/17 fenofibrate 160 mg PO DAILY #30 tablet 10/02/17 Allergies Allergy/AdvReac Type Severity Reaction Status Date / Time No Known Allergies Allergy Unverified 06/19/18 15:03 General Stated Complaint: Abd Prob KOLBY: 3 Course <KE Parra - Last Filed: 06/21/18 11:42> Vital Signs Temperature 36.4 C L 06/19/18 14:59 Pulse 81 06/19/18 14:59 Respiratory Rate 21 06/19/18 14:59 Blood Pressure 152/86 H 06/19/18 14:59 Pulse Oximetry 93 L 06/19/18 14:59 Temperature 36.4 C L 06/19/18 14:59 Temperature Source Temporal Artery Scan 06/19/18 14:59 Pulse 81 06/19/18 14:59 Respiratory Rate 21 06/19/18 14:59 Respiratory Effort Non-Labored 06/19/18 15:02 Blood Pressure 152/86 H 06/19/18 14:59 Pulse Oximetry 93 L 06/19/18 14:59 Oxygen Delivery Method Room Air 06/19/18 14:59 Oxygen Flow Rate 0 06/19/18 14:59 Pain Level 9 06/19/18 14:59 Sign Out <KE Parra - Last Filed: 06/21/18 11:42> Sign Out Data: Sign Out Comment: Care transitioned to Emilio Frias NP. Working diagnosis pancreatitis, hyperglycemia with labs pending. Last updated by Sandra Murry PA at 06/19/18 17:14
[2018-06-19] MEDS: HYDROmorphone 2 MG/ML VIAL 1 MG IVP ×2 (18:42→21:44)
[2018-06-19 18:47] LABS: Anion Gap 10.7 mmol/L (3-11); BUN 18 mg/dL (7-18); CO2 24.3 mmol/L (21.0-32.0); CREATININE 0.98 mg/dL (0.70-1.30); Calcium 8.4 mg/dL (8.5-10.1); Chloride 99 mmol/L (98-107); Glucose 343 mg/dL (70-100); Potassium 4.1 mmol/L (3.5-5.1); Sodium 134 mmol/L (136-145)
[2018-06-19 19:08] LABS: Bilirubin Negative (Negative); Blood Negative (Negative); Clarity Clear; Glucose 500 mg/dL (Negative); Ketones 15 mg/dL (Negative); Leukocyte Esterase Negative (Negative); Nitrite Negative (Negative); Urobilinogen 0.2 EU/dL (Up TO 0.2); pH 5.5 (5-8)
[2018-06-19] MEDS: Enoxaparin 40 MG/0.4 ML SYR SC (23:01)
[2018-06-19] MEDS: DEXTROSE 5%-LACTATED RINGERS 1,000 ML 200 ML IV (23:05)
--- NOTE | 2018-06-19 23:06 | HPE_ITS ---
Date of service: 06/19/18 Time of Service: 23:06 Assessment and Plan (1) Recurrent acute pancreatitis: Current visit: No Status: Acute keep NPO overnight, aggressive fluid hydration w/ LR and add D5% in order to be able to use insulin drip to bring down his hypertriglyceridemia. Once his triglycerides are under 500 then can d/c the insulin drip and resume oral antihypertriglyceridemia agents. check abdominal US in the a.m. as no imaging was done in the ER although he was just in the hospital one month ago but it appears that his last imaging of his pancreas was an abdominal/pelvic CT from 06/2018 therefore I think that repeat imaging is indicated to look for pseudocyst/phlegmon or necrosis. (2) Insulin dependent diabetes mellitus: Current visit: No Status: Chronic begin insulin drip to treat hypertriglyceridemia once his TG are under 500 then he can go back on programmed levemir and meal associated humalog. will monitor his glucose Q1hr for the initial first few hours then can go to q2hr if stable (goal of glucose is 90 to 180) (3) Hypertriglyceridemia: Current visit: No Status: Chronic will initially treat w/ insulin but once his levels are under 500 then resume his fenofibrate (4) Essential hypertension: Current visit: No Status: Chronic continue his lisinopril and carvedilol. will hold on lasix for now as he needs aggressive hydration for his pancreatitis. will need to closely monitor his U.O. and overall I/O's and daily weights d/t his hx of HFPEF. History of Present Illness Chief Complaint: abdominal pain Narrative: 63 yr old male w/ PMH of chronic pancreatitis x 2 yrs, type 2 DM on insulin, HTN, HLD (hypertriglyceridemia), non-ischemic CM (s/p AICD), alcohol abuse (currently in remission). Patient was admitted last September and again last month (05/14-05/18/2018) for hypertriglyceridemia associated pancreatitis. He now presents w/ acute epigastric abdominal pain that began this morning associated w/ nausea and bilious vomiting. He was found to have recurrent pancreatitis w/ lipase of 443 but triglycerides of 2690. He states that he has had to cut down on some of his medicines d/t costs. He says that he is now in the [facility] for his Medicare prescription coverage. He has not taken his Creon for 2 to 3 months. He says that he has had to cut down his insulin due to costs. He normal gives himself his Levemir twice a day and uses Humalog at meals per sliding scale but can not afford the cost of his insulin. On presentation his glucose was leevated at 423. He is now admitted to ICU on insulin drip to bring down his triglycerides below 500. Review of Systems Constitutional Reports system reviewed and no additional complaints, except as docu Cardiovascular Reports system reviewed and no additional complaints, except as docu Respiratory Reports system reviewed and no additional complaints, except as docu Gastrointestinal Reports as per HPI Genitourinary Reports system reviewed and no additional complaints, except as docu Neurologic Reports paresthesias (both feet) Endocrine Reports system reviewed and no additional complaints, except as docu PFSH CHF (congestive heart failure) (Chronic) Insulin dependent diabetes mellitus (Chronic) Pancreatitis (Chronic) Hypertriglyceridemia (Chronic) Cardiomyopathy, alcoholic (Chronic) Recurrent acute pancreatitis (Acute) Alcohol dependence, in remission (Chronic) Diabetes mellitus type 2 in obese (Chronic) LBBB (left bundle branch block) (Chronic) CHF (congestive heart failure) (Chronic) Essential hypertension (Chronic) Pancreatic pseudocyst (Chronic) Lung nodule (Chronic) EKG abnormalities (Chronic) History of implantable cardioverter-defibrillator (ICD) placement (Resolved) History of tonsillectomy (Resolved) Cholecystectomy Colonoscopy - IV Sedation (06/20/16) Splenomegaly Social History Smoking/Tobacco Use Status: Never alcohol intake: former substance use type: does not use Meds Home Medications Medication Instructions Recorded Confirmed Type multivitamin [Multiple Vitamins] 1 tab PO DAILY #30 tab 01/28/16 06/19/18 Rx lisinopril 2.5 mg PO DAILY #30 tab-cap 09/05/16 06/19/18 History magnesium oxide 400 mg PO DAILY #30 tab 01/20/17 06/19/18 Rx carvedilol 12.5 mg PO BID #60 tab-cap 03/20/17 06/19/18 History [id number] [Creon] 2 ea PO BID 05/07/17 05/14/18 History insulin detemir U-100 [Levemir 60 units SQ QAM 06/13/17 06/19/18 History FlexTouch U-100 Insuln] insulin detemir U-100 [Levemir 60 units SQ QPM 06/13/17 06/19/18 History FlexTouch U-100 Insuln] insulin lispro [Humalog KwikPen 33 unit SQ DAILY 06/13/17 06/19/18 History Insulin] fenofibrate 160 mg PO DAILY #30 tablet 10/02/17 05/14/18 Rx furosemide 20 mg PO DAILY tab-cap 12/04/17 06/19/18 History ranitidine HCl 300 mg PO DAILY tab-cap 12/04/17 06/19/18 History atorvastatin 10 mg PO .QHS 05/14/18 06/19/18 History spironolactone 25 mg PO DAILY 05/14/18 06/19/18 History Allergies Allergy/AdvReac Type Severity Reaction Status Date / Time No Known Allergies Allergy Unverified 06/19/18 15:03 Exam Const General: cooperative, disheveled and ill appearing chronically Orientation: alert, awake and oriented x3 HENMT Head: normal to inspection, no palpable skull fracture, normocephalic and atraumatic Ears: hearing grossly normal bilaterally, external ears normal and TM's normal bilaterally General nose exam: external nose normal, nasal mucous membranes and turbinates normal, septum normal and no nasal discharge Face and sinus: normal facial exam Mouth: oral mucosae normal, lip normal, tongue normal, oropharynx normal and moist mucous membranes Teeth and gingiva: dentures Throat: posterior oropharynx normal Eyes General: appearance normal, both eyes and all related structures Visual Escudero: normal visual escudero by confrontation Alignment and Position: alignment normal Periorbital: periorbital findings normal Eyelids: eyelids normal Conjunctivae: conjunctivae normal Sclera: sclerae normal Cornea: corneas normal Pupils: PERRL EOM: EOM intact bilaterally Direct ophthalmoscopy: normal light reflex Neck Neck: normal visual inspection, full ROM, no lymphadenopathy, trachea midline, supple and no JVD Thyroid: thyroid normal Carotids: normal carotid upstroke, bounding pulses and no bruits Lymphatic: no lymphadenopathy noted Resp Effort & Inspection: normal respiratory effort and able to speak in complete sentences Auscultation: clear to auscultation bilaterally Cardio Jugular venous pressure: no JVD Palpation: normal PMI Rate: regular rate Rhythm: regular rhythm Heart Sounds: S1 normal, S2 normal and normal, physiologic split S2 Bruits: no abdominal aortic bruits, no carotid bruits and no renal bruits Pulses: normal peripheral pulses GI Inspection: no abdominal wall ecchymosis, non-distended and obesity Palpation: soft, no hepatosplenomegaly and tender in the epigastrum; with no rebound tenderness Percussion: normal to percussion Auscultation: normal bowel sounds Rectal Exam: deferred Skin General skin exam: no rashes or lesions noted, elasticity normal and turgor normal Lesions: no lesions Rashes: no rashes Trauma: no lacerations or abrasions Wounds: no wounds Neuro General: alert, awake, oriented x3, moves all extremities, no focal motor deficits and CN's II-XI intact bilaterally Cognition: normal cognition Speech: speech normal Motor: muscle tone normal throughout, strength 5/5 throughout and no movement abnormalities noted Sensory Exam: lower extremity (decreased sensation to light touch over toes of both feet) bilateral light-touch abnormal decreased Extrem General: normal to inspection, full ROM, normal capillary refill, no joint enlargement, no clubbing, cyanosis or edema, no pedal edema and no calf tenderness Psych Appearance: disheveled Mental Status: mental status grossly normal Speech and Movement: speech and movement normal Mood: congruent mood Affect: normal affect Attitude: cooperative Thought Process: normal Thought Content: normal Insight: insight good Judgment: judgment good Results Labs : 06/24/18 06:07 06/24/18 06:07 Laboratory Results - last 24 hr 06/19/18 06/19/18 06/19/18 15:23 15:23 15:23 WBC 13.05 H RBC 4.75 Hgb 15.9 Hct 44.8 MCV 94.3 MCH 33.5 H MCHC 35.5 RDW 14.2 H Plt Count 274 MPV 11.8 H Immature Gran % 0.2 Neutrophils % 63.6 Lymphocytes % 25.6 Monocytes % 9.1 Eosinophils % 1.2 Basophils % 0.3 Absolute Neutrophils 8.30 H Absolute Lymphocytes 3.34 Absolute Monocytes 1.19 H Absolute Eosinophils 0.16 Absolute Basophils 0.04 Sodium 130 L Potassium 3.6 Chloride 93 L Carbon Dioxide 23.0 Anion Gap 14.0 H BUN 20 H Creatinine 1.11 Estimated GFR/1.73 m2 >= 60.00 Glucose 423 H Calcium 9.1 Magnesium 2.0 Total Bilirubin 0.5 AST 21 ALT 26 Alkaline Phosphatase 110 Troponin I < 0.02 Total Protein 8.2 Albumin 3.6 Triglycerides 2690 H Lipase 443 H Urine Color Urine Clarity Urine pH Ur Specific [place] Urine Protein Urine Ketones Urine Blood Urine Nitrite Urine Bilirubin Urine Urobilinogen Ur Leukocyte Esterase Urine Glucose 06/19/18 06/19/18 17:50 18:33 WBC RBC Hgb Hct MCV MCH MCHC RDW Plt Count MPV Immature Gran % Neutrophils % Lymphocytes % Monocytes % Eosinophils % Basophils % Absolute Neutrophils Absolute Lymphocytes Absolute Monocytes Absolute Eosinophils Absolute Basophils Sodium 134 L Potassium 4.1 Chloride 99 Carbon Dioxide 24.3 Anion Gap 10.7 BUN 18 Creatinine 0.98 Estimated GFR/1.73 m2 >= 60.00 Glucose 343 H Calcium 8.4 L Magnesium Total Bilirubin AST ALT Alkaline Phosphatase Troponin I Total Protein Albumin Triglycerides Lipase Urine Color Yellow Urine Clarity Clear Urine pH 5.5 Ur Specific [place] 1.020 Urine Protein Negative Urine Ketones 15 H Urine Blood Negative Urine Nitrite Negative Urine Bilirubin Negative Urine Urobilinogen 0.2 Ur Leukocyte Esterase Negative Urine Glucose 500 H Last Vital Signs Temp 36.6 C 06/19/18 21:50 Pulse 82 06/19/18 21:50 Resp 17 06/19/18 21:31 BP 145/82 H 06/19/18 21:30 Pulse Ox 95 06/19/18 21:31
[2018-06-19 23:08] LABS: Lactate-non-spesis 1.2 mmol/L (0.6-1.4)
[2018-06-19] MEDS: Normal Saline Flush 10 ML SYR IVP (23:33)
[2018-06-20] VITALS (98 sets, daily range): BP systolic 104–134; BP diastolic 60–96; PULSE 68–138; RESP 6–22; TEMP 35.5–37; O2SAT 89–96
[2018-06-20] MEDS: HYDROmorphone 2 MG/ML VIAL IVP ×4 (02:02→13:23)
[2018-06-20] MEDS: Normal Saline Flush 10 ML SYR IVP ×4 (02:03→20:02)
[2018-06-20] MEDS: Ondansetron 4 MG/2 ML VIAL (05:42)
--- NOTE | 2018-06-20 07:00 | DI.US_ITS ---
SYMPTOM/DIAGNOSIS: RECURRENT PANCREATITIS ABDOMEN ULTRASOUND: Hepatic parenchyma appears of increased echogenicity with decrease through transmission suggesting hepatic steatosis. Dependent portions of the liver are not visualized. Patient has had a previous cholecystectomy. No biliary dilatation is seen. Visualized portions of the pancreas are unremarkable. Kidneys appear normal with no evidence of hydronephrosis or nephrolithiasis. Spleen has reportedly been surgically removed. Abdominal aorta and IVC are of normal diameter. Probable 3.8 cm. splenule noted in the left upper quadrant. CONCLUSION: Probable hepatic steatosis. No other significant abnormality is seen.
--- NOTE | 2018-06-20 07:28 | W.PM.PROGNOT ---
Date of Service Date of service: 06/20/18 Time of Service: 12:43 Assessment and Plan (1) Recurrent acute pancreatitis: Current visit: No Status: Acute Continue NPO status given ongoing and significant pain. Recurrence is likely on the basis of untreated severe Hypertriglyceridemia, but will also check a liver ultrasound. Patient had no evidence of lactic acidosis or significant hypoglycemia, and without signs of multi-organ failure - was initiated and will be maintained on insulin gtt with IVFs, with close monitoring of blood sugars until TG levels are less than 500, currently improved but still significantly elevated. Repeat Triglyceride levels Q12. Will need reinitiation of his statin and fibrate therapy. Monitor fluid status carefully given history of cardiomyopathy. (2) Insulin dependent diabetes mellitus: Current visit: No Status: Chronic Currently on insulin drip to treat hypertriglyceridemia, but once TG are under 500 then he can go back on programmed levemir and meal associated humalog. will monitor his glucose closely. Plan on ADA diet when able to eat. (3) Hypertriglyceridemia: Current visit: No Status: Chronic Continue ISS and fluids as above, discontinue and resume with high potency statin and fibrate when TG <500. (4) Essential hypertension: Current visit: No Status: Chronic Currently on MEE-I and BB. Lasix for now as he needs aggressive hydration for his pancreatitis. will need to closely monitor his daily weight and I/O's as patient has history of NICMP. Will resume Spironolactone as well. (5) Cardiomyopathy, alcoholic: Current visit: No Status: Chronic NICMP with last ECHO in November 2017 showing LVEF of 30-35%. AICD in place. Appears euvolemic to mildly dry currently. Restart home dose of spironolactone, and continue BB and MEE-I. As patient needs fluids currently for acute pancreatitis low dose oral furosemide remains on hold. Continue to monitor daily weights, I/O's, and fluid status carefully. (6) DVT prophylaxis: Current visit: Yes Status: Acute SC Lovenox Subjective Interval history since last seen: 63 year old man with a past medical history significant for chronic pancreatitis with recurrent acute flares, history of ETOH, as well as significant hypertriglyceridemia admitted from [facility] Emergency Department on 06/19 with a diagnosis of Acute Pancreatitis. Mr. Henning has a history of recurrent pancreatitis, ETOH abuse in remission, and Hypertriglyceridemia. He also carries the diagnosis of DM, HTN, non-ischemic Cardiomyopathy likely on the basis of former alcohol use s/p AICD placement. Patient was admitted last September and again last month (05/14-05/18/2018) for hypertriglyceridemia associated pancreatitis. He presented this time with acute epigastric abdominal pain that began on the morning of admission associated with nausea and bilious vomiting. He was found to have recurrent pancreatitis with a lipase of 443 but triglycerides of 2690. He states that he has had to cut down on some of his medicines due to cost. He says that he is now in the 'donut hole' for his Medicare prescription coverage, and as such has not taken his Creon and other medications for some time, and has cut down his insulin due to costs. On presentation his glucose was also elevated at 423. He was referred for admission to the ICU on insulin drip and IVFs to bring down his triglycerides below 500. Currently the patient continues to report epigastric pain, nausea, and food aversion. His Triglycerides have improved from 2690 to 1690 with insulin and IVFs. His morning lipase has increased and remains elevated at 1423. No overnight events reported. Remains afebrile. Exam Narrative Exam Narrative: General: Patient appears mildly uncomfortable but in no acute distress, AAOX3 Neck: Supple CV: Regular, nontachycardic, S1S2, No rubs, murmurs, or gallops. Pulmonary: Clear to auscultation bilaterally, no crackles, wheezing, or rhonchi Abdomen: + Bowel Sounds, soft, Epigastric tenderness to palpation Vascular: No lower extremity edema Psych: Normal mood and affect. Objective Objective Clinical Data: Abnormal lab results 06/19/18 06/19/18 06/19/18 Range/Units 15:23 15:23 15:23 WBC 13.05 H (4.4-10.8) k/cumm MCH 33.5 H (27.0-33.0) pg RDW 14.2 H (11.8-14.1) % MPV 11.8 H (8.0-11.0) fL Absolute Neutrophils 8.30 H (1.2-6.7) k/cumm Absolute Monocytes 1.19 H (0.11-0.7) k/cumm Sodium 130 L (136-145) mmol/L Chloride 93 L (98-107) mmol/L Anion Gap 14.0 H (3-11) mmol/L BUN 20 H (7-18) mg/dL Glucose 423 H (70-100) mg/dL Calcium (8.5-10.1) mg/dL Triglycerides 2690 H (30-150) mg/dL Lipase 443 H (73-393) U/L Urine Ketones (Negative) mg/dL Urine Glucose (Negative) mg/dL 06/19/18 06/19/18 Range/Units 17:50 18:33 WBC (4.4-10.8) k/cumm MCH (27.0-33.0) pg RDW (11.8-14.1) % MPV (8.0-11.0) fL Absolute Neutrophils (1.2-6.7) k/cumm Absolute Monocytes (0.11-0.7) k/cumm Sodium 134 L (136-145) mmol/L Chloride (98-107) mmol/L Anion Gap (3-11) mmol/L BUN (7-18) mg/dL Glucose 343 H (70-100) mg/dL Calcium 8.4 L (8.5-10.1) mg/dL Triglycerides (30-150) mg/dL Lipase (73-393) U/L Urine Ketones 15 H (Negative) mg/dL Urine Glucose 500 H (Negative) mg/dL Vital Signs Temperature 36.8 C 06/20/18 03:30 Temperature Source Tympanic 06/20/18 02:30 Pulse 72 06/20/18 04:50 Pulse 76 06/20/18 04:51 Respiratory Rate 13 06/20/18 04:51 Respiratory Effort 06/20/18 02:30 Respiratory Depth Normal 06/20/18 02:30 Respiratory Pattern Normal 06/20/18 02:30 Blood Pressure 129/69 06/20/18 04:50 Blood Pressure Mean 83 06/20/18 04:50 Blood Pressure Position Supine 06/19/18 21:50 Pulse Oximetry 93 L 06/20/18 04:51 Oxygen Delivery Method Nasal Cannula 06/20/18 00:16 Oxygen Flow Rate 2 06/20/18 00:16 Pain Level 8 06/20/18 06:10 Intake & Output 06/19/18 06/19/18 06/20/18 11:59 23:59 11:59 Intake Total 2009 1095.365 / 1095.365 Output Total 450 / 450 Balance 2009 645.365 / 645.365 Weight 106.1 kg Intake: IV 2009 1045.365 / 1045.365 Oral 50 / 50 Output: Urine 450 / 450 Other: Urine Color Yellow Urine Appearance Clear Urine Odor None Comment no voids this shift. Voiding Methods Urinal Laboratory Results WBC 13.05 k/cumm (4.4-10.8) H 06/19/18 15:23 RBC 4.75 m/cumm (4.50-6.00) 06/19/18 15:23 Hgb 15.9 g/dL (13.5-17.5) 06/19/18 15:23 Hct 44.8 % (40.0-50.0) 06/19/18 15:23 MCV 94.3 fL (80-95) 06/19/18 15:23 MCH 33.5 pg (27.0-33.0) H 06/19/18 15:23 MCHC 35.5 g/dL (32.0-36.0) 06/19/18 15:23 RDW 14.2 % (11.8-14.1) H 06/19/18 15:23 Plt Count 274 x1000/uL (130-400) 06/19/18 15:23 MPV 11.8 fL (8.0-11.0) H 06/19/18 15:23 Immature Gran % 0.2 06/19/18 15:23 Neutrophils % 63.6 06/19/18 15:23 Lymphocytes % 25.6 06/19/18 15:23 Monocytes % 9.1 06/19/18 15:23 Eosinophils % 1.2 06/19/18 15:23 Basophils % 0.3 06/19/18 15:23 Absolute Neutrophils 8.30 k/cumm (1.2-6.7) H 06/19/18 15:23 Absolute Lymphocytes 3.34 k/cumm (1.2-3.4) 06/19/18 15:23 Absolute Monocytes 1.19 k/cumm (0.11-0.7) H 06/19/18 15:23 Absolute Eosinophils 0.16 k/cumm (0.0-0.7) 06/19/18 15:23 Absolute Basophils 0.04 k/cumm (0.0-0.2) 06/19/18 15:23 Sodium 134 mmol/L (136-145) L 06/19/18 18:33 Potassium 4.1 mmol/L (3.5-5.1) 06/19/18 18:33 Chloride 99 mmol/L (98-107) 06/19/18 18:33 Carbon Dioxide 24.3 mmol/L (21.0-32.0) 06/19/18 18:33 Anion Gap 10.7 mmol/L (3-11) 06/19/18 18:33 BUN 18 mg/dL (7-18) 06/19/18 18:33 Creatinine 0.98 mg/dL (0.70-1.30) 06/19/18 18:33 Estimated GFR/1.73 m2 >= 60.00 (mL/min/1.73m2) 06/19/18 18:33 Glucose 343 mg/dL (70-100) H 06/19/18 18:33 Lactate 1.2 mmol/L (0.6-1.4) 06/19/18 23:02 Calcium 8.4 mg/dL (8.5-10.1) L 06/19/18 18:33 Magnesium 2.0 mg/dL (1.8-2.4) 06/19/18 15:23 Total Bilirubin 0.5 mg/dL (0.2-1.0) 06/19/18 15:23 AST 21 U/L (15-37) 06/19/18 15:23 ALT 26 U/L (12-78) 06/19/18 15:23 Alkaline Phosphatase 110 U/L (46-116) 06/19/18 15:23 Troponin I < 0.02 ng/mL (0.00-0.06) 06/19/18 15:23 Total Protein 8.2 g/dL (6.4-8.2) 06/19/18 15:23 Albumin 3.6 g/dL (3.4-5.0) 06/19/18 15:23 Triglycerides 2690 mg/dL (30-150) H 06/19/18 15:23 Lipase 443 U/L (73-393) H 06/19/18 15:23 Urine Color Yellow (Yellow) 06/19/18 17:50 Urine Clarity Clear 06/19/18 17:50 Urine pH 5.5 (5-8) 06/19/18 17:50 Ur Specific [place] 1.020 (1.005-1.025) 06/19/18 17:50 Urine Protein Negative mg/dL (Negative) 06/19/18 17:50 Urine Ketones 15 mg/dL (Negative) H 06/19/18 17:50 Urine Blood Negative (Negative) 06/19/18 17:50 Urine Nitrite Negative (Negative) 06/19/18 17:50 Urine Bilirubin Negative (Negative) 06/19/18 17:50 Urine Urobilinogen 0.2 EU/dL (Up TO 0.2) 06/19/18 17:50 Ur Leukocyte Esterase Negative (Negative) 06/19/18 17:50 Urine Glucose 500 mg/dL (Negative) H 06/19/18 17:50
[2018-06-20 07:43] LABS: Abs Immature Grans 0.03 k/cumm (0.0-0.09); Basophils % 0.1; HCT 41.3 % (40.0-50.0); HGB 13.9 g/dL (13.5-17.5); Immature Grans % 0.2; Lymphocytes % 22.7; Mean Corp. HGB Concentration 33.7 g/dL (32.0-36.0); Mean Corpuscular Hemoglobin 32.9 pg (27.0-33.0); Mean Corpuscular Volume 97.9 fL (80-95); Mean Platelet Volume 12.2 fL (8.0-11.0); Monocytes % 9.9; Neutrophils % 65.1; Platelet Count 264 x1000/uL (130-400); RBC 4.22 m/cumm (4.50-6.00); RBC Distribution Width 14.8 % (11.8-14.1); White Blood Cell Count 14.78 k/cumm (4.4-10.8)
[2018-06-20 08:00] LABS: Alkaline Phosphatase 89 U/L (46-116); Anion Gap 7.7 mmol/L (3-11); BUN 13 mg/dL (7-18); Bilirubin, Total 0.4 mg/dL (0.2-1.0); CO2 26.3 mmol/L (21.0-32.0); CREATININE 0.83 mg/dL (0.70-1.30); Calcium 8.4 mg/dL (8.5-10.1); Chloride 104 mmol/L (98-107); Cholesterol 321 mg/dL (50-200); Glucose 200 mg/dL (70-100); HDL Cholesterol 26 mg/dL (40-60); LDL CHOLESTEROL 52 mg/dL (<100); Potassium 3.5 mmol/L (3.5-5.1); Sodium 138 mmol/L (136-145)
[2018-06-20 08:11] LABS: ALT 22 U/L (12-78)
[2018-06-20 08:37] LABS: AST 30 U/L (15-37)
[2018-06-20 09:15] LABS: Absolute Basophil Count 0.01 k/cumm (0.0-0.2); Absolute Lymphocyte Count 3.36 k/cumm (1.2-3.4); Absolute Monocyte Count 1.46 k/cumm (0.11-0.7); Absolute Neutrophil Count 9.62 k/cumm (1.2-6.7)
[2018-06-20 09:25] LABS: Lipase 1423 U/L (73-393); Triglyceride 1690 mg/dL (30-150)
--- NOTE | 2018-06-20 09:29 | PDOC.CMIN ---
- If Service Date Differs Date of service: 06/20/18 Time of Service: 09:29 Care Management Initial Assess REASON FOR HOSPITALIZATION:: Recurrent acute pancreatitis PAST MEDICAL HISTORY/PAST SURGICAL HISTORY:: CHF (congestive heart failure) (Chronic). Insulin dependent diabetes mellitus (Chronic). Pancreatitis (Chronic). Hypertriglyceridemia (Chronic). Cardiomyopathy, alcoholic (Chronic). Recurrent acute pancreatitis (Acute). Alcohol dependence, in remission (Chronic). Diabetes mellitus type 2 in obese (Chronic). LBBB (left bundle branch block) (Chronic). CHF (congestive heart failure) (Chronic). Essential hypertension (Chronic). Pancreatic pseudocyst (Chronic). Lung nodule (Chronic). EKG abnormalities (Chronic). History of implantable cardioverter-defibrillator (ICD) placement (Resolved). History of tonsillectomy (Resolved). Cholecystectomy. Colonoscopy - IV Sedation (06/20/16). Splenomegaly PREVIOUS FUNCTIONAL STATUS/SOCIAL/FAMILY SUPPORTS:: Sonny resides with his Stephanie as well as his son Tyler (his gf and their child) in [facility]. Sonny is retired and previously worked at [employer] in [place]. Sonny is independent at baseline, he drives, and manages IADL's. Sonny also reports that he watches his grandchildren at home at this time. CURRENT FUNCTIONAL STATUS:: Currently Shon is lying in bed. His Stephanie is in the room with him. Stephanie is requesting assistance in regards to payment for insulin. CM faxed the physician portion of the [employer] Patient Assistance Stan to Shon's Light Adjuster Dr. Lowery at [facility] ADVANCE DIRECTIVES:: On file - Stephanie Henning is agent, Tyler Henning is alternate Has patient been provided with information about the portal?: Yes Did the patient sign up for the portal?: No (Already signed up) CODE STATUS:: Full Code INSURANCE COVERAGE / FINANCIAL ISSUES:: Medicare, [employer] CURRENT HOME/COMMUNITY SERVICES/EQUIPMENT:: Currently Shon has no services or medical equipment in the community. PRIMARY CARE PHYSICIAN:: Dwain Mercado POTENTIAL DISCHARGE NEEDS:: F/U appointment with PCP. Medication coverage PATIENT/FAMILY EDUCATION NEEDS:: Review DC instructions, any limitations, and ongoing DC planning discussion. ANTICIPATED BARRIERS TO DISCHARGE:: None identified at this time. TRANSPORTATION:: Via private vehicle with family. PLAN:: Sonny will return home with no anticipated services. He will F/U with PCP and plan of care as prescribed. Sonny's family to transport when ready.
[2018-06-20] MEDS: Lisinopril 10 MG TAB 2.5 MG PO (09:38)
[2018-06-20] MEDS: Carvedilol 25 MG TAB 12.5 MG PO ×2 (09:38→20:03)
[2018-06-20] MEDS: DEXTROSE 5%-LACTATED RINGERS 1,000 ML 200 ML IV ×3 (09:38→20:03)
[2018-06-20] MEDS: Multivitamin TAB 1 TAB PO (09:39)
[2018-06-20] MEDS: Potassium Chloride 20 MEQ TABCR 40 MEQ PO (09:39)
[2018-06-20] MEDS: Magnesium Oxide 400 MG TAB PO (09:39)
[2018-06-20] MEDS: Fenofibrate, Micronized 145 MG TAB PO (09:39)
--- NOTE | 2018-06-20 10:06 | INITIAL_ITS ---
- If Service Date Differs Date of service: 06/20/18 Time of Service: 09:29 Care Management Initial Assess REASON FOR HOSPITALIZATION:: Recurrent acute pancreatitis PAST MEDICAL HISTORY/PAST SURGICAL HISTORY:: CHF (congestive heart failure) ( Chronic). Insulin dependent diabetes mellitus (Chronic). Pancreatitis (Chronic ). Hypertriglyceridemia (Chronic). Cardiomyopathy, alcoholic (Chronic). Recurrent acute pancreatitis (Acute). Alcohol dependence, in remission (Chronic ). Diabetes mellitus type 2 in obese (Chronic). LBBB (left bundle branch block ) (Chronic). CHF (congestive heart failure) (Chronic). Essential hypertension (Chronic). Pancreatic pseudocyst (Chronic). Lung nodule (Chronic). EKG abnormalities (Chronic). History of implantable cardioverter-defibrillator (ICD ) placement (Resolved). History of tonsillectomy (Resolved). Cholecystectomy. Colonoscopy - IV Sedation (06/20/16). Splenomegaly PREVIOUS FUNCTIONAL STATUS/SOCIAL/FAMILY SUPPORTS:: Sonny resides with his Stephanie as well as his son Tyler (his gf and their child) in [facility]. Sonny is retired and previously worked at [employer] in [place] [facility]. Sonny is independent at baseline, he drives, and manages IADL's. Sonny also reports that he watches his grandchildren at home at this time. CURRENT FUNCTIONAL STATUS:: Currently Shon is lying in bed. His Stephanie is in the room with him. Stephanie is requesting assistance in regards to payment for insulin. CM faxed the physician portion of the [email or web address] Patient Assistance Stan to Shon's Balance Wheel Motion Inspector Dr. Lowery at [facility] ADVANCE DIRECTIVES:: On file - Stephanie Henning is agent, Tyler Henning is alternate Has patient been provided with information about the portal?: Yes Did the patient sign up for the portal?: No (Already signed up) CODE STATUS:: Full Code INSURANCE COVERAGE / FINANCIAL ISSUES:: Medicare, [employer] CURRENT HOME/COMMUNITY SERVICES/EQUIPMENT:: Currently Shon has no services or medical equipment in the community. PRIMARY CARE PHYSICIAN:: Dwain Mercado POTENTIAL DISCHARGE NEEDS:: F/U appointment with PCP. Medication coverage PATIENT/FAMILY EDUCATION NEEDS:: Review DC instructions, any limitations, and ongoing DC planning discussion. ANTICIPATED BARRIERS TO DISCHARGE:: None identified at this time. TRANSPORTATION:: Via private vehicle with family. PLAN:: Sonny will return home with no anticipated services. He will F/U with PCP and plan of care as prescribed. Sonny's family to transport when ready.
--- NOTE | 2018-06-20 10:35 | PHARADMIT ---
Addendum entered by Stephanie Jama 06/23/18 17:39: Pharmacy Note Subjective talk of advancing pts diet Objective VS-okay pain-0/10 labs okay weight-118.7(up) Assessment insulin detemir dose decreased from 60 units BId to 60 units daily, insulin drip discontinued yesterday Plan continue to watch VS, labs and for med changes Original Note: Addendum entered by Keshia Vazquez 06/22/18 11:16: Pharmacy Note Subjective Objective VS ok, pain 3/10, K+ 3.6, Mag 1.6, WBC down 8.17, BG 112, weight creaping up Assessment Mag 2gram IV x1, also on Magox 400mg daily Insulin drip currently running @ 8ml/hr Pt refusing Flonase NS Plan Insulin infusion will be dc'd today, may need to consider diuresis, but pt needs IVF's to resolve pancreatitis for now, watch weight, I/O Original Note: Addendum entered by Keshia Vazquez 06/21/18 11:55: Pharmacy Note Subjective Objective VS good, pain 4/10, K+ 3.4, WBC 11.45, BG 117, Lipase down 239 Assessment Insulin infusion @ 8ml/hr...fingersticks running 94-107 K+ 20meq IV x2, D5LR w/20meq KCL @ 200ml/hr Spironolactone, Lisinopril dc'd Lipitor increased Plan follow Lipase, blood glucose, ?diuresis, anticipate insulin infusion will be dc'd and start of home insulin Original Note: Admission Pharmacy Clinical Review PANCREATITS, HYPERGLYCEMIA, HYPERTRIGLYRIDES Code Status Full Code Current Weight Wgt- 114.8 kg Renally Cleared and Narrow Therapeutic Index Meds CrCl~ 100 mL/min Meds-OK QTc Value / Action Taken QTc-536 BP Control, Fever BP- 134/80 Tmax- 36.6C Electrolytes reviewed Na- 138 K+3.5 Mag- 2.0 DVT Prophylaxis Lovenox Opiate Usage / Scheduled Bowel Regimen Ordered Yes No Plt/SCr for Heparin / Enoxaparin Plts-264 SCr-0.83 INR for Warfarin na H/H stable, WBC/Bands H&H- 13.9/41.3 WBC- 14.78 Antibiotic appropriateness na Cultures and Sensitivities NA Surgical ABX d/c within 24 hr na DM control / Insulin Dosing BG-200 Insulin Drip. Heart Failure (Check EF%) (MEE's, B-Block, Diuretics) Coreg, Lisinopril, IV to PO Switch No Home Meds Reviewed Yes Home Meds Not Ordered Lasix, Spironolactone, Detemir, Lispro Comments Triglycerides- 1,690 (30-150) Cholesterol- 321 (50-200) Lipase- 1,423 (73-393)
[2018-06-20 19:54] LABS: Triglyceride 1344 mg/dL (30-150)
[2018-06-20] MEDS: Enoxaparin 40 MG/0.4 ML SYR SC (21:16)
[2018-06-20] MEDS: Atorvastatin 10 MG TAB PO (21:16)
[2018-06-21] VITALS (35 sets, daily range): BP systolic 107–142; BP diastolic 64–78; PULSE 66–85; RESP 10–23; TEMP 36.9–37.6; O2SAT 88–96
[2018-06-21] MEDS: DEXTROSE 5%-LACTATED RINGERS 1,000 ML 200 ML IV ×2 (01:16→06:05)
[2018-06-21 07:23] LABS: Abs Immature Grans 0.02 k/cumm (0.0-0.09); Absolute Basophil Count 0.03 k/cumm (0.0-0.2); Absolute Eosinophil Count 0.37 k/cumm (0.0-0.7); Absolute Lymphocyte Count 3.38 k/cumm (1.2-3.4); Absolute Monocyte Count 1.25 k/cumm (0.11-0.7); Basophils % 0.3; Eosinophils % 3.2; HCT 40.1 % (40.0-50.0); Immature Grans % 0.2; Lymphocytes % 29.5; Mean Corp. HGB Concentration 32.4 g/dL (32.0-36.0); Mean Corpuscular Hemoglobin 32.7 pg (27.0-33.0); Mean Corpuscular Volume 100.8 fL (80-95); Mean Platelet Volume 12.1 fL (8.0-11.0); Monocytes % 10.9; Neutrophils % 55.9; Platelet Count 233 x1000/uL (130-400); RBC 3.98 m/cumm (4.50-6.00); RBC Distribution Width 15.6 % (11.8-14.1); White Blood Cell Count 11.45 k/cumm (4.4-10.8)
[2018-06-21 07:36] LABS: BUN 6 mg/dL (7-18); CREATININE 0.92 mg/dL (0.70-1.30); Calcium 8.5 mg/dL (8.5-10.1); Chloride 107 mmol/L (98-107); Glucose 117 mg/dL (70-100); Lipase 239 U/L (73-393); Magnesium 1.8 mg/dL (1.8-2.4); Potassium 3.4 mmol/L (3.5-5.1); Sodium 141 mmol/L (136-145)
[2018-06-21 08:55] LABS: Cholesterol 313 mg/dL (50-200); HDL Cholesterol 26 mg/dL (40-60); LDL CHOLESTEROL 59 mg/dL (<100)
[2018-06-21] MEDS: Carvedilol 25 MG TAB 12.5 MG PO ×2 (08:58→19:57)
[2018-06-21] MEDS: Fenofibrate, Micronized 145 MG TAB PO (08:58)
[2018-06-21] MEDS: Magnesium Oxide 400 MG TAB PO (08:58)
[2018-06-21] MEDS: Multivitamin TAB 1 TAB PO (08:58)
[2018-06-21 09:29] LABS: Triglyceride 1062 mg/dL (30-150)
[2018-06-21] MEDS: POTASSIUM CHLORIDE 20 MEQ/100 ML BAG 50 MEQ IVPB ×2 (10:14→12:39)
--- NOTE | 2018-06-21 10:22 | CMPROGNOTE_ITS ---
- If Service Date Differs Date of service: 06/21/18 Time of Service: 10:20 Care Management Progress Note S/O: Shon is lying in bed when this filing writer visits this morning, he is pleasant and open to discussion. Shon states that his Stephanie was in to see him earlier and has gone to work. notified Shon that the paperwork for financial assistance was faxed to Dr. Lowery's office for his insulin. Shon states that his continues to work on the Medicaid application, and that he is unsure as to where she is at with the process. A: 63 y/o male admitted 06/19/18 for pancreatitis. P: Shon will return home with no anticipated services once medically cleared. He will F/U with PCP and plan of care as prescribed. Shon's family to transport home.
[2018-06-21] MEDS: Acetaminophen 325 MG TAB 650 MG PO (16:48)
--- NOTE | 2018-06-21 19:27 | PGE_ITS ---
Date of Service Date of service: 06/21/18 Time of Service: 12:00 Assessment and Plan (1) Recurrent acute pancreatitis: Current visit: No Status: Acute In setting of hypertriglyceridemia. Continue aggressive IVF, insulin gtt while monitoring triglyceride levels ( target <500), keep NPO. (2) Insulin dependent diabetes mellitus: Current visit: No Status: Chronic As above (3) Hypertriglyceridemia: Current visit: No Status: Chronic Increase statin, continue fenofibrate; on insulin gtt. (4) Essential hypertension: Current visit: No Status: Chronic D/c José Miguel-i - may be contributing to pancreatitis. (5) Cardiomyopathy, alcoholic: Current visit: No Status: Chronic NICMP with last ECHO in November 2017 showing LVEF of 30-35%. AICD in place. Remains euvolemic - carefully monitor volume status (6) DVT prophylaxis: Current visit: Yes Status: Acute SC Lovenox Subjective Interval history since last seen: Complains of pain and sinus congestion. Denies dizziness, chest pain, shortness of breath. Abdominal pain and nausea are better. Remains on insulin gtt. Exam Narrative Exam Narrative: General: A&Ox3, NAD, laying in bed, slightly uncomfortable HEENT: EOMI, MMM Heart: RRR, no m/r/g Lungs: CTAB Abdomen: soft, tender in epigastrium/periumbilically Extremities: no e/c/c BLE's. Objective Objective Clinical Data: Abnormal lab results 06/20/18 06/21/18 06/21/18 Range/Units 18:40 06:35 06:35 WBC 11.45 H (4.4-10.8) k/cumm RBC 3.98 L (4.50-6.00) m/cumm Hgb 13.0 L (13.5-17.5) g/dL MCV 100.8 H (80-95) fL RDW 15.6 H (11.8-14.1) % MPV 12.1 H (8.0-11.0) fL Absolute Monocytes 1.25 H (0.11-0.7) k/cumm Potassium 3.4 L (3.5-5.1) mmol/L BUN 6 L (7-18) mg/dL Glucose 117 H D (70-100) mg/dL Triglycerides 1344 H 1062 H (30-150) mg/dL Total Cholesterol 313 H (50-200) mg/dL HDL Cholesterol 26 L (40-60) mg/dL Vital Signs Temperature 37.4 C 06/21/18 16:00 Temperature Source Temporal Artery Scan 06/21/18 16:00 Pulse 79 06/21/18 16:01 Pulse 83 06/21/18 16:01 Respiratory Rate 20 06/21/18 16:01 Respiratory Effort 06/21/18 16:00 Respiratory Depth Normal 06/21/18 16:00 Respiratory Pattern Normal 06/21/18 16:00 Blood Pressure 135/78 06/21/18 16:01 Blood Pressure Mean 92 06/21/18 16:01 Blood Pressure Position Supine 06/21/18 16:00 Pulse Oximetry 94 L 06/21/18 16:01 Oxygen Delivery Method Room Air 06/21/18 16:00 Oxygen Flow Rate 0 06/21/18 16:00 Pain Level 7 06/21/18 16:48 Intake & Output 06/20/18 06/21/18 06/21/18 23:59 11:59 23:59 Intake Total 2024.375 / 2025.375 3177.142 / 3177.142 1256.766 / 1256.766 Output Total 400 / 400 750 / 750 400 / 400 Balance 1625.375 / 9236.912 1686.142 / 2427.142 856.766 / 856.766 Weight 113.8 kg Intake: IV 2024.375 / 202.375 2997.142 / 2997.142 1256.766 / 1256.766 Oral 180 / 180 Output: Urine 400 / 400 750 / 750 400 / 400 Other: Urine Color Light [place] Light [place] Light [place] Urine Appearance Clear Clear Clear Urine Odor None None None Comment Voided 400cc's pf franchesca urine in urinal. SG-1.015. large +for glucose and trace +for ketones SG 1.030, pH 5, trace ketones. Voiding via urinal. Voiding via urinal. Voiding Methods Urinal Urinal Urinal Laboratory Results WBC 11.45 k/cumm (4.4-10.8) H 06/21/18 06:35 RBC 3.98 m/cumm (4.50-6.00) L 06/21/18 06:35 Hgb 13.0 g/dL (13.5-17.5) L 06/21/18 06:35 Hct 40.1 % (40.0-50.0) 06/21/18 06:35 MCV 100.8 fL (80-95) H 06/21/18 06:35 MCH 32.7 pg (27.0-33.0) 06/21/18 06:35 MCHC 32.4 g/dL (32.0-36.0) 06/21/18 06:35 RDW 15.6 % (11.8-14.1) H 06/21/18 06:35 Plt Count 233 x1000/uL (130-400) 06/21/18 06:35 MPV 12.1 fL (8.0-11.0) H 06/21/18 06:35 Immature Gran % 0.2 06/21/18 06:35 Neutrophils % 55.9 06/21/18 06:35 Lymphocytes % 29.5 06/21/18 06:35 Monocytes % 10.9 06/21/18 06:35 Eosinophils % 3.2 06/21/18 06:35 Basophils % 0.3 06/21/18 06:35 Absolute Neutrophils 6.40 k/cumm (1.2-6.7) 06/21/18 06:35 Absolute Lymphocytes 3.38 k/cumm (1.2-3.4) 06/21/18 06:35 Absolute Monocytes 1.25 k/cumm (0.11-0.7) H 06/21/18 06:35 Absolute Eosinophils 0.37 k/cumm (0.0-0.7) 06/21/18 06:35 Absolute Basophils 0.03 k/cumm (0.0-0.2) 06/21/18 06:35 Sodium 141 mmol/L (136-145) 06/21/18 06:35 Potassium 3.4 mmol/L (3.5-5.1) L 06/21/18 06:35 Chloride 107 mmol/L (98-107) 06/21/18 06:35 Carbon Dioxide 29.0 mmol/L (21.0-32.0) 06/21/18 06:35 Anion Gap 5.0 mmol/L (3-11) 06/21/18 06:35 BUN 6 mg/dL (7-18) L 06/21/18 06:35 Creatinine 0.92 mg/dL (0.70-1.30) 06/21/18 06:35 Estimated GFR/1.73 m2 >= 60.00 (mL/min/1.73m2) 06/21/18 06:35 Glucose 117 mg/dL (70-100) H D 06/21/18 06:35 Lactate 1.2 mmol/L (0.6-1.4) 06/19/18 23:02 Calcium 8.5 mg/dL (8.5-10.1) 06/21/18 06:35 Magnesium 1.8 mg/dL (1.8-2.4) 06/21/18 06:35 Total Bilirubin 0.4 mg/dL (0.2-1.0) 06/20/18 06:40 AST 30 U/L (15-37) 06/20/18 06:40 ALT 22 U/L (12-78) 06/20/18 06:40 Alkaline Phosphatase 89 U/L (46-116) 06/20/18 06:40 Troponin I < 0.02 ng/mL (0.00-0.06) 06/19/18 15:23 Total Protein 7.0 g/dL (6.4-8.2) 06/20/18 06:40 Albumin 3.0 g/dL (3.4-5.0) L 06/20/18 06:40 Triglycerides 1062 mg/dL (30-150) H 06/21/18 06:35 Total Cholesterol 313 mg/dL (50-200) H 06/21/18 06:35 LDL Cholesterol Direct 59 mg/dL (<100) 06/21/18 06:35 HDL Cholesterol 26 mg/dL (40-60) L 06/21/18 06:35 Lipase 239 U/L (73-393) 06/21/18 06:35 Urine Color Yellow (Yellow) 06/19/18 17:50 Urine Clarity Clear 06/19/18 17:50 Urine pH 5.5 (5-8) 06/19/18 17:50 Ur Specific [place] 1.020 (1.005-1.025) 06/19/18 17:50 Urine Protein Negative mg/dL (Negative) 06/19/18 17:50 Urine Ketones 15 mg/dL (Negative) H 06/19/18 17:50 Urine Blood Negative (Negative) 06/19/18 17:50 Urine Nitrite Negative (Negative) 06/19/18 17:50 Urine Bilirubin Negative (Negative) 06/19/18 17:50 Urine Urobilinogen 0.2 EU/dL (Up TO 0.2) 06/19/18 17:50 Ur Leukocyte Esterase Negative (Negative) 06/19/18 17:50 Urine Glucose 500 mg/dL (Negative) H 06/19/18 17:50
[2018-06-21] MEDS: Enoxaparin 40 MG/0.4 ML SYR SC (22:36)
[2018-06-21] MEDS: HYDROmorphone 2 MG/ML VIAL IVP (22:36)
[2018-06-21] MEDS: Atorvastatin 40 MG TAB PO (22:37)
[2018-06-22] VITALS (22 sets, daily range): BP systolic 102–127; BP diastolic 57–100; PULSE 62–84; RESP 11–26; TEMP 36–37.2; O2SAT 92–97
[2018-06-22 07:11] LABS: Abs Immature Grans 0.01 k/cumm (0.0-0.09); Absolute Basophil Count 0.04 k/cumm (0.0-0.2); Absolute Eosinophil Count 0.42 k/cumm (0.0-0.7); Absolute Lymphocyte Count 3.32 k/cumm (1.2-3.4); Absolute Neutrophil Count 3.38 k/cumm (1.2-6.7); Basophils % 0.5; Eosinophils % 5.1; HCT 39.4 % (40.0-50.0); HGB 13.1 g/dL (13.5-17.5); Immature Grans % 0.1; Lymphocytes % 40.6; Mean Corp. HGB Concentration 33.2 g/dL (32.0-36.0); Mean Corpuscular Hemoglobin 33.4 pg (27.0-33.0); Mean Corpuscular Volume 100.5 fL (80-95); Mean Platelet Volume 12.3 fL (8.0-11.0); Monocytes % 12.2; Neutrophils % 41.5; Platelet Count 224 x1000/uL (130-400); RBC 3.92 m/cumm (4.50-6.00); RBC Distribution Width 15.5 % (11.8-14.1); White Blood Cell Count 8.17 k/cumm (4.4-10.8)
[2018-06-22 07:35] LABS: ALT 18 U/L (12-78); AST 18 U/L (15-37); Albumin 2.4 g/dL (3.4-5.0); Alkaline Phosphatase 68 U/L (46-116); Anion Gap 7.1 mmol/L (3-11); BUN 4 mg/dL (7-18); Bilirubin, Direct 0.09 mg/dL (0.00-0.20); Bilirubin, Total 0.5 mg/dL (0.2-1.0); CO2 26.9 mmol/L (21.0-32.0); CREATININE 0.96 mg/dL (0.70-1.30); Calcium 8.6 mg/dL (8.5-10.1); Chloride 107 mmol/L (98-107); Glucose 112 mg/dL (70-100); Magnesium 1.6 mg/dL (1.8-2.4); Potassium 3.6 mmol/L (3.5-5.1); Sodium 141 mmol/L (136-145); Total Protein 6.1 g/dL (6.4-8.2)
[2018-06-22 07:50] LABS: Cholesterol 274 mg/dL (50-200); HDL Cholesterol 26 mg/dL (40-60); LDL CHOLESTEROL 87 mg/dL (<100); Triglyceride 611 mg/dL (30-150)
[2018-06-22] MEDS: MAGNESIUM SULFATE 2 GM/50 ML BAG IVPB (08:37)
[2018-06-22] MEDS: Fenofibrate, Micronized 145 MG TAB PO (08:38)
[2018-06-22] MEDS: Carvedilol 25 MG TAB 12.5 MG PO ×2 (08:38→20:34)
[2018-06-22] MEDS: Magnesium Oxide 400 MG TAB PO (08:39)
[2018-06-22] MEDS: Multivitamin TAB 1 TAB PO (08:39)
--- NOTE | 2018-06-22 10:23 | PDOC.CMPRO ---
- If Service Date Differs Date of service: 06/22/18 Time of Service: 10:23 Care Management Progress Note S/O: Shon is resting comfortably in bed when this junior copywriter visits this morning, he is pleasant and receptive to discussion. Shon states that he is feeling okay this morning, he reports that he slept well overnight. Shon states that his will be in at some point today, though he is unsure when due to the weather. CM to continue to offer support to Shon during his hospitalization. A: 63 y/o male admitted 06/19/18 for pancreatitis. P: Shon will return home with no anticipated services once medically cleared. He will F/U with PCP and plan of care as prescribed. Shon's family to transport home.
--- NOTE | 2018-06-22 10:56 | PGE_ITS ---
Date of Service Date of service: 06/22/18 Time of Service: 10:00 Assessment and Plan (1) Recurrent acute pancreatitis: Current visit: No Status: Acute In setting of hypertriglyceridemia, improving. Triglycerides are trending down. Will recheck today at 1600. If <500, d/c insulin gtt. Trial clear liquids. Continues IVF. (2) Insulin dependent diabetes mellitus: Current visit: No Status: Chronic Will transition to basal bolus insulin once off insulin gtt. (3) Hypertriglyceridemia: Current visit: No Status: Chronic Continue increased dose of statin, fenofibrate. On insulin gtt until triglycerides are <500. (4) Essential hypertension: Current visit: No Status: Chronic Controlled without huy- i - continue to monitor. (5) Cardiomyopathy, alcoholic: Current visit: No Status: Chronic NICMO/chronic systolic CHF w/ LVEF of 30-35% in 11/2017, s/p AICD. Remains euvolemic - carefully monitor volume status (6) DVT prophylaxis: Current visit: Yes Status: Acute SC Lovenox Subjective Interval history since last seen: Feels better - no abdominal pain this am. Cowden a little dizzy after sitting in a chair for an hour, felt better when he layed down. Denies chest pain, shortness of breath, nausea, vomiting. Remains on insulin gtt. Would like to try something to eat. Exam Narrative Exam Narrative: General: A&Ox3, NAD, laying in bed, comfortable HEENT: EOMI, MMM Heart: RRR, no m/r/g Lungs: CTAB Abdomen: soft, nontender today, nondistended Extremities: no e/c/c BLE's, 1+ pedal pulses B, no clubbing/cyanosis. Objective Objective Clinical Data: Abnormal lab results 06/22/18 06/22/18 Range/Units 06:40 06:40 RBC 3.92 L (4.50-6.00) m/cumm Hgb 13.1 L (13.5-17.5) g/dL Hct 39.4 L (40.0-50.0) % MCV 100.5 H (80-95) fL MCH 33.4 H (27.0-33.0) pg RDW 15.5 H (11.8-14.1) % MPV 12.3 H (8.0-11.0) fL Absolute Monocytes 1.00 H (0.11-0.7) k/cumm BUN 4 L (7-18) mg/dL Glucose 112 H (70-100) mg/dL Magnesium 1.6 L (1.8-2.4) mg/dL Total Protein 6.1 L (6.4-8.2) g/dL Albumin 2.4 L (3.4-5.0) g/dL Triglycerides 611 H (30-150) mg/dL Total Cholesterol 274 H (50-200) mg/dL HDL Cholesterol 26 L (40-60) mg/dL Vital Signs Temperature 36.6 C 06/22/18 07:21 Temperature Source Temporal Artery Scan 06/22/18 07:21 Pulse 75 06/22/18 08:11 Pulse 75 06/22/18 08:11 Respiratory Rate 13 06/22/18 08:11 Respiratory Effort 06/22/18 07:21 Respiratory Depth Normal 06/22/18 07:21 Respiratory Pattern Normal 06/22/18 07:21 Blood Pressure 125/74 06/22/18 08:11 Blood Pressure Mean 87 06/22/18 08:11 Blood Pressure Position Supine 06/22/18 00:00 Pulse Oximetry 97 06/22/18 07:21 Oxygen Delivery Method Room Air 06/22/18 07:21 Oxygen Flow Rate 0 06/22/18 07:21 Pain Level 4 06/22/18 07:21 Intake & Output 06/21/18 06/21/18 06/22/18 11:59 23:59 11:59 Intake Total 3177.142 / 3177.142 2325.557 / 2325.557 2611.117 / 2611.117 Output Total 750 / 750 800 / 800 425 / 425 Balance 2427.142 / 2427.142 1525.557 / 6184.931 7246.117 / 2186.117 Weight 113.8 kg 117.1 kg Intake: IV 2997.142 / 2997.142 2235.557 / 2235.557 2551.117 / 2551.117 Oral 180 / 180 90 / 90 60 / 60 Output: Urine 750 / 750 800 / 800 425 / 425 Other: Urine Color Light [place] Yellow Straw Urine Appearance Clear Clear Clear Urine Odor None None Comment SG 1.030, pH 5, trace ketones. Voiding via urinal. Voiding via urinal. Voiding via urinal. SG 1.025, pH 5, 250 glucose, trace ketones. Stool Occult Blood Negative Stool Size Moderate Stool Characteristics Brown Voiding Methods Urinal Urinal Urinal Laboratory Results WBC 8.17 k/cumm (4.4-10.8) 06/22/18 06:40 RBC 3.92 m/cumm (4.50-6.00) L 06/22/18 06:40 Hgb 13.1 g/dL (13.5-17.5) L 06/22/18 06:40 Hct 39.4 % (40.0-50.0) L 06/22/18 06:40 MCV 100.5 fL (80-95) H 06/22/18 06:40 MCH 33.4 pg (27.0-33.0) H 06/22/18 06:40 MCHC 33.2 g/dL (32.0-36.0) 06/22/18 06:40 RDW 15.5 % (11.8-14.1) H 06/22/18 06:40 Plt Count 224 x1000/uL (130-400) 06/22/18 06:40 MPV 12.3 fL (8.0-11.0) H 06/22/18 06:40 Immature Gran % 0.1 06/22/18 06:40 Neutrophils % 41.5 06/22/18 06:40 Lymphocytes % 40.6 06/22/18 06:40 Monocytes % 12.2 06/22/18 06:40 Eosinophils % 5.1 06/22/18 06:40 Basophils % 0.5 06/22/18 06:40 Absolute Neutrophils 3.38 k/cumm (1.2-6.7) 06/22/18 06:40 Absolute Lymphocytes 3.32 k/cumm (1.2-3.4) 06/22/18 06:40 Absolute Monocytes 1.00 k/cumm (0.11-0.7) H 06/22/18 06:40 Absolute Eosinophils 0.42 k/cumm (0.0-0.7) 06/22/18 06:40 Absolute Basophils 0.04 k/cumm (0.0-0.2) 06/22/18 06:40 Sodium 141 mmol/L (136-145) 06/22/18 06:40 Potassium 3.6 mmol/L (3.5-5.1) 06/22/18 06:40 Chloride 107 mmol/L (98-107) 06/22/18 06:40 Carbon Dioxide 26.9 mmol/L (21.0-32.0) 06/22/18 06:40 Anion Gap 7.1 mmol/L (3-11) 06/22/18 06:40 BUN 4 mg/dL (7-18) L 06/22/18 06:40 Creatinine 0.96 mg/dL (0.70-1.30) 06/22/18 06:40 Estimated GFR/1.73 m2 >= 60.00 (mL/min/1.73m2) 06/22/18 06:40 Glucose 112 mg/dL (70-100) H 06/22/18 06:40 Lactate 1.2 mmol/L (0.6-1.4) 06/19/18 23:02 Calcium 8.6 mg/dL (8.5-10.1) 06/22/18 06:40 Magnesium 1.6 mg/dL (1.8-2.4) L 06/22/18 06:40 Total Bilirubin 0.5 mg/dL (0.2-1.0) 06/22/18 06:40 Conjugated Bilirubin 0.09 mg/dL (0.00-0.20) 06/22/18 06:40 AST 18 U/L (15-37) 06/22/18 06:40 ALT 18 U/L (12-78) 06/22/18 06:40 Alkaline Phosphatase 68 U/L (46-116) 06/22/18 06:40 Troponin I < 0.02 ng/mL (0.00-0.06) 06/19/18 15:23 Total Protein 6.1 g/dL (6.4-8.2) L 06/22/18 06:40 Albumin 2.4 g/dL (3.4-5.0) L 06/22/18 06:40 Triglycerides 611 mg/dL (30-150) H 06/22/18 06:40 Total Cholesterol 274 mg/dL (50-200) H 06/22/18 06:40 LDL Cholesterol Direct 87 mg/dL (<100) 06/22/18 06:40 HDL Cholesterol 26 mg/dL (40-60) L 06/22/18 06:40 Lipase 239 U/L (73-393) 06/21/18 06:35 Urine Color Yellow (Yellow) 06/19/18 17:50 Urine Clarity Clear 06/19/18 17:50 Urine pH 5.5 (5-8) 06/19/18 17:50 Ur Specific [place] 1.020 (1.005-1.025) 06/19/18 17:50 Urine Protein Negative mg/dL (Negative) 06/19/18 17:50 Urine Ketones 15 mg/dL (Negative) H 06/19/18 17:50 Urine Blood Negative (Negative) 06/19/18 17:50 Urine Nitrite Negative (Negative) 06/19/18 17:50 Urine Bilirubin Negative (Negative) 06/19/18 17:50 Urine Urobilinogen 0.2 EU/dL (Up TO 0.2) 06/19/18 17:50 Ur Leukocyte Esterase Negative (Negative) 06/19/18 17:50 Urine Glucose 500 mg/dL (Negative) H 06/19/18 17:50
[2018-06-22 16:37] LABS: Triglyceride 499 mg/dL (30-150)
--- NOTE | 2018-06-22 16:51 | NUR.NOTE ---
Nursing Note: 06/22/18 approx 16:00: R hand and arm noted with significant non-pitting edema due to infiltrate of RH iv last night. That iv was removed last night and iv switched to RAC. RAC iv became dislodged this morning. Numerous attempts to start an IV on L upper extremity failed. New iv establisehd R wrist. Continuing with careful monitoring of continued insulin gtt, extremity elevated on pillows with warm compress applied.
[2018-06-22] MEDS: Normal Saline 1,000 ML 150 ML IV ×2 (18:23→23:43)
--- NOTE | 2018-06-22 20:43 | NUR.NOTE ---
Nursing Note: At 19:40 hrs.bedside report taken from INJECTION MOLDING MACHINE TENDER , pt is AO x 3., with IVFluids infusing well on right wrist and affected arm slightly swollen from previous IV infiltration noted and kept elevated on pillow. Transferred to MS Rm 206. Nursing assessment performed and within normal limits. Pt has Zio patch on left chest inplaced., also with implanted defibrillator. Both feet with trace of edema. skin is intact. Lung sounds clear, FS was 158 and received Levemir as scheduled of 60 units. Denied of pain or discomfort at this time. Oriented in the room and call lights system.
[2018-06-22] MEDS: Enoxaparin 40 MG/0.4 ML SYR SC (21:10)
[2018-06-22] MEDS: Atorvastatin 40 MG TAB PO (21:10)
[2018-06-22] MEDS: Insulin Aspart 300 UNITS/3 ML PEN SC (21:11)
[2018-06-23] MEDS: Normal Saline 1,000 ML 150 ML IV ×3 (06:01→19:21)
[2018-06-23 06:35] VITALS: RESP 18; O2SAT 78
[2018-06-23 07:09] LABS: Abs Immature Grans 0.02 k/cumm (0.0-0.09); Absolute Basophil Count 0.02 k/cumm (0.0-0.2); Absolute Eosinophil Count 0.33 k/cumm (0.0-0.7); Absolute Lymphocyte Count 2.85 k/cumm (1.2-3.4); Absolute Monocyte Count 1.03 k/cumm (0.11-0.7); Absolute Neutrophil Count 4.66 k/cumm (1.2-6.7); Basophils % 0.2; Eosinophils % 3.7; HCT 38.9 % (40.0-50.0); HGB 12.7 g/dL (13.5-17.5); Immature Grans % 0.2; Mean Corp. HGB Concentration 32.6 g/dL (32.0-36.0); Mean Corpuscular Hemoglobin 32.2 pg (27.0-33.0); Mean Corpuscular Volume 98.7 fL (80-95); Mean Platelet Volume 12.9 fL (8.0-11.0); Monocytes % 11.6; Neutrophils % 52.3; Platelet Count 245 x1000/uL (130-400); RBC 3.94 m/cumm (4.50-6.00); RBC Distribution Width 15.3 % (11.8-14.1); White Blood Cell Count 8.91 k/cumm (4.4-10.8)
[2018-06-23 07:18] VITALS: BP 122/73; PULSE 74; RESP 18; TEMP 36.6; O2SAT 94
[2018-06-23 07:28] LABS: Anion Gap 9.8 mmol/L (3-11); BUN 5 mg/dL (7-18); CO2 23.2 mmol/L (21.0-32.0); CREATININE 0.86 mg/dL (0.70-1.30); Calcium 8.6 mg/dL (8.5-10.1); Chloride 107 mmol/L (98-107); Glucose 76 mg/dL (70-100); Magnesium 1.8 mg/dL (1.8-2.4); Potassium 3.8 mmol/L (3.5-5.1); Sodium 140 mmol/L (136-145)
[2018-06-23 07:40] VITALS: O2SAT 97
[2018-06-23] MEDS: Carvedilol 6.25 MG TAB 12.5 MG PO ×2 (08:00→19:39)
[2018-06-23] MEDS: Multivitamin TAB 1 TAB PO (08:00)
[2018-06-23] MEDS: Fenofibrate, Micronized 145 MG TAB PO (08:00)
[2018-06-23] MEDS: Magnesium Oxide 400 MG TAB PO (08:00)
[2018-06-23] MEDS: Insulin Aspart 300 UNITS/3 ML PEN 10 UNITS SC ×3 (08:01→16:54)
[2018-06-23 08:07] LABS: Cholesterol 245 mg/dL (50-200); HDL Cholesterol 21 mg/dL (40-60); LDL CHOLESTEROL 116 mg/dL (<100); Triglyceride 468 mg/dL (30-150)
[2018-06-23 11:20] VITALS: BP 122/76; PULSE 78; RESP 15; TEMP 36.1; O2SAT 98
--- NOTE | 2018-06-23 11:40 | PDOC.CMPRO ---
- If Service Date Differs Date of service: 06/23/18 Time of Service: 11:40 Care Management Progress Note S/O: Shon is sitting up in his chair when this song writer visits this morning, he states that he has been up ambulating in the halls. Shon states that his was in earlier, however has since gone to work. CM discussed DC plans which remain unchanged at this time. CM faxed document for completion to Dr. Lowery on Saturday, he will be in on Sunday 06/24. A: 63 y/o male admitted 06/19/18 for pancreatitis, hyperglycemia P: Shon will return home with no anticipated services. He will F/U with PCP and plan of care as prescribed. Shon's Stephanie or son to transport.
[2018-06-23] MEDS: Insulin Aspart 300 UNITS/3 ML PEN SC (11:56)
--- NOTE | 2018-06-23 13:32 | CMPROGNOTE_ITS ---
- If Service Date Differs Date of service: 06/23/18 Time of Service: 11:40 Care Management Progress Note S/O: Shon is sitting up in his chair when this health underwriter visits this morning, he states that he has been up ambulating in the halls. Shon states that his was in earlier, however has since gone to work. CM discussed DC plans which remain unchanged at this time. CM faxed document for completion to Dr. Lowery on Saturday, he will be in on Sunday 06/24. A: 63 y/o male admitted 06/19/18 for pancreatitis, hyperglycemia P: Shon will return home with no anticipated services. He will F/U with PCP and plan of care as prescribed. Shon's Stephanie or son to transport.
[2018-06-23 16:03] VITALS: BP 119/81; PULSE 72; RESP 20; TEMP 37.1; O2SAT 98
--- NOTE | 2018-06-23 17:03 | W.PM.PROGNOT ---
Date of Service Date of service: 06/23/18 Time of Service: 15:30 Assessment and Plan (1) Recurrent acute pancreatitis: Current visit: No Status: Acute In setting of hypertriglyceridemia, Resolving. Off of insulin gtt and out of ICU since yesterday. Continue IVF for tonight. Advance diet to regular consistency low fat. (2) Insulin dependent diabetes mellitus: Current visit: No Status: Chronic I decreased patient's basal insulin due to a BG of 76 this am - will readdress tomorrow since his diet is getting upgraded. (3) Hypertriglyceridemia: Current visit: No Status: Chronic Continue increased dose of statin, fenofibrate. Off of insulin gtt since yesterday. (4) Essential hypertension: Current visit: No Status: Chronic Controlled without hyu- i - continue to monitor. (5) Cardiomyopathy, alcoholic: Current visit: No Status: Chronic NICMO/chronic systolic CHF w/ LVEF of 30-35% in 11/2017, s/p AICD. Remains euvolemic. Continue IVF for tonight. (6) DVT prophylaxis: Current visit: Yes Status: Acute SC Lovenox Subjective Interval history since last seen: The patient has had no abdominal pain today, no nausea, but does report 2 bouts of diarrhea. He is able to tolerate clears. He is very hopeful about having a more substantial dinner today. He denies any dizziness, chest pain, or shortness of breath. He has been ambulating in the hallway. He thinks he will be ready to go home tomorrow. Exam Narrative Exam Narrative: General: A&Ox3, NAD, sitting in the chair, looks well HEENT: EOMI, MMM Heart: RRR, no m/r/g Lungs: CTAB Abdomen: soft, nontender, nondistended Extremities: no e/c/c BLE's, 1+ pedal pulses B, no clubbing/cyanosis. Objective Objective Clinical Data: Abnormal lab results 06/23/18 06/23/18 Range/Units 06:45 06:45 RBC 3.94 L (4.50-6.00) m/cumm Hgb 12.7 L (13.5-17.5) g/dL Hct 38.9 L (40.0-50.0) % MCV 98.7 H (80-95) fL RDW 15.3 H (11.8-14.1) % MPV 12.9 H (8.0-11.0) fL Absolute Monocytes 1.03 H (0.11-0.7) k/cumm BUN 5 L (7-18) mg/dL Triglycerides 468 H (30-150) mg/dL Total Cholesterol 245 H (50-200) mg/dL LDL Cholesterol Direct 116 H (<100) mg/dL HDL Cholesterol 21 L (40-60) mg/dL Vital Signs Temperature 37.1 C 06/23/18 16:03 Temperature Source Tympanic 06/23/18 16:03 Pulse 72 06/23/18 16:03 Pulse Rhythm Regular 06/23/18 07:18 Pulse 80 06/22/18 18:00 Respiratory Rate 20 06/23/18 16:03 Respiratory Effort Non-Labored 06/23/18 07:18 Respiratory Depth Normal 06/23/18 07:18 Respiratory Pattern Normal 06/23/18 07:18 Blood Pressure 119/81 06/23/18 16:03 Blood Pressure Mean 84 06/22/18 16:01 Blood Pressure Position Supine 06/22/18 16:00 Pulse Oximetry 98 06/23/18 16:03 Oxygen Delivery Method Room Air 06/23/18 16:03 Oxygen Flow Rate 0 06/23/18 16:03 Pain Level 0 06/23/18 11:20 Intake & Output 06/22/18 06/23/18 06/23/18 23:59 11:59 23:59 Intake Total 3000.500 / 3000.500 1735 / 1735 1432.5 / 1432.5 Output Total 1800 / 1800 1100 / 1100 700 / 700 Balance 1200.500 / 1200.500 635 / 635 732.5 / 732.5 Weight 118.7 kg Intake: IV 1860.500 / 1860.500 945 / 945 952.5 / 952.5 Oral 1140 / 1140 790 / 790 480 / 480 Output: Urine 1500 / 1500 1100 / 1100 700 / 700 Stool 300 / 300 Other: Urine Color Yellow Yellow Yellow Urine Appearance Clear Clear Clear Urine Odor None None None Comment using urinal at bedside. Void x1 in the urinal. Void x1 in the urinal. Stool Size Moderate Stool Characteristics Liquid Soft Green Liquid Brown Voiding Methods Urinal Urinal Urinal Laboratory Results WBC 8.91 k/cumm (4.4-10.8) 06/23/18 06:45 RBC 3.94 m/cumm (4.50-6.00) L 06/23/18 06:45 Hgb 12.7 g/dL (13.5-17.5) L 06/23/18 06:45 Hct 38.9 % (40.0-50.0) L 06/23/18 06:45 MCV 98.7 fL (80-95) H 06/23/18 06:45 MCH 32.2 pg (27.0-33.0) 06/23/18 06:45 MCHC 32.6 g/dL (32.0-36.0) 06/23/18 06:45 RDW 15.3 % (11.8-14.1) H 06/23/18 06:45 Plt Count 245 x1000/uL (130-400) 06/23/18 06:45 MPV 12.9 fL (8.0-11.0) H 06/23/18 06:45 Immature Gran % 0.2 06/23/18 06:45 Neutrophils % 52.3 06/23/18 06:45 Lymphocytes % 32.0 06/23/18 06:45 Monocytes % 11.6 06/23/18 06:45 Eosinophils % 3.7 06/23/18 06:45 Basophils % 0.2 06/23/18 06:45 Absolute Neutrophils 4.66 k/cumm (1.2-6.7) 06/23/18 06:45 Absolute Lymphocytes 2.85 k/cumm (1.2-3.4) 06/23/18 06:45 Absolute Monocytes 1.03 k/cumm (0.11-0.7) H 06/23/18 06:45 Absolute Eosinophils 0.33 k/cumm (0.0-0.7) 06/23/18 06:45 Absolute Basophils 0.02 k/cumm (0.0-0.2) 06/23/18 06:45 Sodium 140 mmol/L (136-145) 06/23/18 06:45 Potassium 3.8 mmol/L (3.5-5.1) 06/23/18 06:45 Chloride 107 mmol/L (98-107) 06/23/18 06:45 Carbon Dioxide 23.2 mmol/L (21.0-32.0) 06/23/18 06:45 Anion Gap 9.8 mmol/L (3-11) 06/23/18 06:45 BUN 5 mg/dL (7-18) L 06/23/18 06:45 Creatinine 0.86 mg/dL (0.70-1.30) 06/23/18 06:45 Estimated GFR/1.73 m2 >= 60.00 (mL/min/1.73m2) 06/23/18 06:45 Glucose 76 mg/dL (70-100) 06/23/18 06:45 Lactate 1.2 mmol/L (0.6-1.4) 06/19/18 23:02 Calcium 8.6 mg/dL (8.5-10.1) 06/23/18 06:45 Magnesium 1.8 mg/dL (1.8-2.4) 06/23/18 06:45 Total Bilirubin 0.5 mg/dL (0.2-1.0) 06/22/18 06:40 Conjugated Bilirubin 0.09 mg/dL (0.00-0.20) 06/22/18 06:40 AST 18 U/L (15-37) 06/22/18 06:40 ALT 18 U/L (12-78) 06/22/18 06:40 Alkaline Phosphatase 68 U/L (46-116) 06/22/18 06:40 Troponin I < 0.02 ng/mL (0.00-0.06) 06/19/18 15:23 Total Protein 6.1 g/dL (6.4-8.2) L 06/22/18 06:40 Albumin 2.4 g/dL (3.4-5.0) L 06/22/18 06:40 Triglycerides 468 mg/dL (30-150) H 06/23/18 06:45 Total Cholesterol 245 mg/dL (50-200) H 06/23/18 06:45 LDL Cholesterol Direct 116 mg/dL (<100) H 06/23/18 06:45 HDL Cholesterol 21 mg/dL (40-60) L 06/23/18 06:45 Lipase 239 U/L (73-393) 06/21/18 06:35 Urine Color Yellow (Yellow) 06/19/18 17:50 Urine Clarity Clear 06/19/18 17:50 Urine pH 5.5 (5-8) 06/19/18 17:50 Ur Specific [place] 1.020 (1.005-1.025) 06/19/18 17:50 Urine Protein Negative mg/dL (Negative) 06/19/18 17:50 Urine Ketones 15 mg/dL (Negative) H 06/19/18 17:50 Urine Blood Negative (Negative) 06/19/18 17:50 Urine Nitrite Negative (Negative) 06/19/18 17:50 Urine Bilirubin Negative (Negative) 06/19/18 17:50 Urine Urobilinogen 0.2 EU/dL (Up TO 0.2) 06/19/18 17:50 Ur Leukocyte Esterase Negative (Negative) 06/19/18 17:50 Urine Glucose 500 mg/dL (Negative) H 06/19/18 17:50
[2018-06-23 19:20] VITALS: BP 127/76; PULSE 74; RESP 16; TEMP 37; O2SAT 96
[2018-06-23] MEDS: Enoxaparin 40 MG/0.4 ML SYR SC (21:05)
[2018-06-23] MEDS: Atorvastatin 40 MG TAB PO (21:05)
[2018-06-24] MEDS: Normal Saline 1,000 ML 150 ML IV ×2 (01:15→06:59)
[2018-06-24 03:32] VITALS: BP 126/75; PULSE 74; RESP 16; TEMP 37.4; O2SAT 94
[2018-06-24 06:45] LABS: Abs Immature Grans 0.01 k/cumm (0.0-0.09); Absolute Basophil Count 0.02 k/cumm (0.0-0.2); Absolute Eosinophil Count 0.28 k/cumm (0.0-0.7); Absolute Lymphocyte Count 2.99 k/cumm (1.2-3.4); Absolute Monocyte Count 0.98 k/cumm (0.11-0.7); Basophils % 0.2; Eosinophils % 2.9; HGB 11.9 g/dL (13.5-17.5); Immature Grans % 0.1; Lymphocytes % 31.2; Mean Corp. HGB Concentration 33.1 g/dL (32.0-36.0); Mean Corpuscular Hemoglobin 32.8 pg (27.0-33.0); Mean Corpuscular Volume 99.2 fL (80-95); Monocytes % 10.2; Neutrophils % 55.4; Platelet Count 239 x1000/uL (130-400); RBC 3.63 m/cumm (4.50-6.00); RBC Distribution Width 15.2 % (11.8-14.1); White Blood Cell Count 9.58 k/cumm (4.4-10.8)
[2018-06-24 06:52] LABS: Anion Gap 8.6 mmol/L (3-11); BUN 8 mg/dL (7-18); CO2 23.4 mmol/L (21.0-32.0); CREATININE 0.94 mg/dL (0.70-1.30); Calcium 8.3 mg/dL (8.5-10.1); Chloride 107 mmol/L (98-107); Glucose 178 mg/dL (70-100); Magnesium 1.5 mg/dL (1.8-2.4); Sodium 139 mmol/L (136-145)
[2018-06-24 07:13] VITALS: BP 121/75; PULSE 74; RESP 17; TEMP 37; O2SAT 94
[2018-06-24 07:20] VITALS: O2SAT 96
[2018-06-24] MEDS: Magnesium Oxide 400 MG TAB PO ×2 (07:51→13:15)
[2018-06-24] MEDS: Carvedilol 6.25 MG TAB 12.5 MG PO (07:51)
[2018-06-24] MEDS: Multivitamin TAB 1 TAB PO (07:51)
[2018-06-24] MEDS: Fenofibrate, Micronized 145 MG TAB PO (07:51)
[2018-06-24] MEDS: Insulin Aspart 300 UNITS/3 ML PEN SC ×2 (07:55→12:04)
[2018-06-24] MEDS: Insulin Aspart 300 UNITS/3 ML PEN 10 UNITS SC ×2 (07:55→12:03)
--- NOTE | 2018-06-24 09:10 | PDOC.CMDIS ---
LACE Index Scoring Tool - Questions: Length of Stay (in days): 4 - 6 Acuity (Admit via E.D.?): Yes Comorbidities: Diabetes w/o Complication, Congestive Heart Failure E.D. Visits: 6 - Answers: Total Score: 14 Risk of Readmission: High Risk Care Management Discharge Reason for Hospitalization: Recurrent acute pancreatitis Discharge Plan: Stephanie had requested assistance in regards to payment for insulin upon admission. Former CM faxed the physician portion of the [employer] Patient Assistance Stan to Shon's Sock Mender Dr. Lowery at [facility] on 06/20/18. Sonny is now preparing for discharge-CM provided additional outlets for offsetting insulin costs including [employer] and [employer] and a direct internet coupon for Levemir. CM spoke with Dr. Lowery's Manufacturing Technologist; Ángel and Ágnel agreed to complete paperwork and fax to this life insurance underwriter. Afterward, it became apparent that Sonny was ineligible for [employer] Patient Assistance due to Medicare Part D coverage through [employer]. CM encouraged Sonny to follow up with Adam Anthony at [facility] through the [employer] and faxed referral as well as to Lashell Bauer; KILEY at [facility]. CM provided [facility] information and materials as well. Sonny will transport via private vehicle with his . Patient/Family Education Needs: Review discharge instructions, follow up plan of care.
--- NOTE | 2018-06-24 12:41 | W.PM.DS.N ---
Date of service: 06/24/18 Time of Service: 12:41 DS: Diagnosis Discharge Diagnosis (1) Recurrent acute pancreatitis: Status: Acute (2) Insulin dependent diabetes mellitus: Status: Chronic (3) Hypertriglyceridemia: Status: Chronic (4) Essential hypertension: Status: Chronic Discharge Plan Disposition Patient Disposition: HOME Condition: Stable Discharge Details Reason For Visit: PANCREATITIS, HYPERGLYCEMIA Admit Date/Time: 06/19/18 18:45 Admit Provider: Kalyan Bauer Attending Provider: Kalyan Bauer Primary Care Provider: Dwain Mercado Hospital Course Hospital Course: Sonny Henning is a 63 year old man with a past medical history significant for chronic pancreatitis with recurrent acute flares, history of ETOH, as well as significant hypertriglyceridemia admitted from [facility] Emergency Department on 06/19 with a diagnosis of Acute Pancreatitis. He had an abdominal ultrasound that showed probable hepatic steatosis. No other significant abnormality is seen. Mr. Henning has a history of recurrent pancreatitis, ETOH abuse in remission, and Hypertriglyceridemia. He also carries the diagnosis of DM, HTN, non-ischemic Cardiomyopathy likely on the basis of former alcohol use s/p AICD placement. Patient was admitted last September and again last month (05/14-05/18/2018) for hypertriglyceridemia associated pancreatitis. He presented this time with acute epigastric abdominal pain that began on the morning of admission associated with nausea and bilious vomiting. He was found to have recurrent pancreatitis with a lipase of 443 but triglycerides of 2690. He reported that he has had to cut down on some of his medicines due to cost. He says that he is now in the 'donut hole' for his Medicare prescription coverage, and as such had not taken his Creon and other medications for some time, and has cut down his insulin due to costs. On presentation his glucose was also elevated at 423. He was referred for admission to the ICU on insulin drip and IV fluids to bring his triglycerides down below 500. His triglycerides came down with the insulin drop, he moved out of the ICU and began to take food. He tolerated a regular diet without increased abdominal pain. His blood sugars remained in an acceptable range. By the day of discharge, his triglycerides were down to 468. His lipase peaked on 06/20 at 1423 and normalized the following day to 239. His magnesium was noted to be low at 1.5 on the day of discharge, he was given magnesium supplementation and will take an increased dose at home and have follow up blood work as an outpatient. Care management worked with him on ensuring that he would be able to get his medications as this was directly related to this admission. He was provided with resources that he will need to follow up on as an outpatient. His is also currently working on obtaining his necessary medications. He will follow up with his PCP as scheduled. He will have follow up blood work to include Magnesium and triglycerides. Home Meds and New Rx's Prescriptions: New atorvastatin [Lipitor] 40 mg Tablet 40 mg PO HS Qty: 30 RF: 0 Continue lisinopril 10 MG tablet 2.5 mg PO DAILY Qty: 30 RF: 11 carvedilol 25 MG tablet 12.5 mg PO BID Qty: 60 RF: 11 ranitidine HCl 150 MG capsule 300 mg PO DAILY RF: 0 furosemide 20 MG tablet 20 mg PO DAILY RF: 0 multivitamin [Multiple Vitamins] 1 TAB tablet 1 tab PO DAILY Qty: 30 RF: 0 magnesium oxide 400 MG tablet 400 mg PO DAILY Qty: 30 RF: 0 [id number] [Creon] 1 EACH capsule,delayed release(DR/EC) 2 ea PO BID RF: 0 spironolactone 25 mg Tablet 25 mg PO DAILY RF: 0 insulin lispro [Humalog KwikPen Insulin] 100 UNIT/ML insulin pen 33 unit SQ DAILY RF: 0 insulin detemir U-100 [Levemir FlexTouch U-100 Insuln] 100 UNIT/ML insulin pen 60 units SQ QPM RF: 0 insulin detemir U-100 [Levemir FlexTouch U-100 Insuln] 100 UNIT/ML insulin pen 60 units SQ QAM RF: 0 fenofibrate 160 MG tablet 160 mg PO DAILY Qty: 30 RF: 0 Discontinued atorvastatin 10 mg Tablet 10 mg PO .QHS RF: 0 Discharge Instructions Instructions: Pancreatitis (DC), Diabetic Hyperglycemia (DC) Additional Instructions: Take your magnesium two times daily for the next 3 days. You will have blood work done on 06/27/18 to reassess your Magnesium. Take all of your medications as prescribed. Your atorvastatin dose has been increased to 40 mg daily. Take care! Stand Alone Forms: Nursing Discharge Form Referrals: Dwain Mercado [Primary Care Provider] - 07/08/18 10:15 am Activity:: Activity as Tolerated Equipment/Supplies:: No Equipment Needed Diet:: Carb Counting Discharge Orders Discharge Orders: Discharge Order (Routine); Ordered 06/24/18 Ordered By: Angi Diaz Other Ambulatory Orders: Lipid 2 (Routine) Timeframe: 20180627 Location: Determined by Patient Ordered By: Angi Diaz Magnesium (Routine) Timeframe: 20180627 Location: Determined by Patient Ordered By: Angi Diaz Exam Narrative Exam Narrative: General: Alert and Orietned x3, sitting in the chair, looks well, in no acute distress. HEENT: Normocephalic, atraumatic, mucous membranes moist, pupils equal and round, EOMI Heart: Regular rate and rhythm, no murmur, click gallop or rub. Lungs: respirations even and unlabored, lung sounds clear to auscultation throughout. Abdomen: soft, nontender on palpation, nondistended Extremities: no clubbing, cyanosis or edema, BLE's, 1+ pedal pulses bilaterally. DS: Data Vitals/I&O Vitals and I&O: Vital Signs Temperature 37.0 C 06/24/18 07:13 Temperature Source Tympanic 06/24/18 07:13 Pulse 74 06/24/18 07:13 Pulse Rhythm Regular 06/24/18 07:25 Pulse 80 06/22/18 18:00 Respiratory Rate 17 06/24/18 07:13 Respiratory Effort Non-Labored 06/24/18 07:25 Respiratory Depth Normal 06/24/18 07:25 Respiratory Pattern Normal 06/24/18 07:25 Blood Pressure 121/75 06/24/18 07:13 Blood Pressure Mean 84 06/22/18 16:01 Blood Pressure Position Supine 06/22/18 16:00 Pulse Oximetry 96 06/24/18 07:20 Oxygen Delivery Method Room Air 06/24/18 07:20 Oxygen Flow Rate 0 06/24/18 07:20 Pain Level 0 06/23/18 11:20 Intake & Output 06/23/18 06/24/18 06/24/18 23:59 11:59 23:59 Intake Total 2672.5 / 2672.5 2084 / 2084 Output Total 1200 / 1200 1500 / 1500 Balance 1472.5 / 1472.5 585 / 585 Weight 119.4 kg Intake: IV 1952.5 / 1952.5 1745 / 1745 Oral 720 / 720 340 / 340 Output: Urine 1200 / 1200 1500 / 1500 Other: Urine Color Yellow Yellow Urine Appearance Clear Clear Urine Odor None Normal Comment Void x1 in the urinal. Stool Size Moderate Stool Characteristics Soft Liquid Brown Voiding Methods Urinal Urinal Completed studies during hospitalization [Text1]: 06/20/18: ABDOMEN ULTRASOUND: Hepatic parenchyma appears of increased echogenicity with decrease through transmission suggesting hepatic steatosis. Dependent portions of the liver are not visualized. Patient has had a previous cholecystectomy. No biliary dilatation is seen. Visualized portions of the pancreas are unremarkable. Kidneys appear normal with no evidence of hydronephrosis or nephrolithiasis. Spleen has reportedly been surgically removed. Abdominal aorta and IVC are of normal diameter. Probable 3.8 cm. splenule noted in the left upper quadrant. CONCLUSION: Probable hepatic steatosis. No other significant abnormality is seen Labs on day of discharge: Labs from last 24 hours 06/24/18 06/24/18 06:07 06:07 WBC 9.58 RBC 3.63 L Hgb 11.9 L Hct 36.0 L MCV 99.2 H MCH 32.8 MCHC 33.1 RDW 15.2 H Plt Count 239 MPV 13.0 H Immature Gran % 0.1 Neutrophils % 55.4 Lymphocytes % 31.2 Monocytes % 10.2 Eosinophils % 2.9 Basophils % 0.2 Absolute Neutrophils 5.30 Absolute Lymphocytes 2.99 Absolute Monocytes 0.98 H Absolute Eosinophils 0.28 Absolute Basophils 0.02 Sodium 139 Potassium 4.0 Chloride 107 Carbon Dioxide 23.4 Anion Gap 8.6 BUN 8 Creatinine 0.94 Estimated GFR/1.73 m2 >= 60.00 Glucose 178 H D Calcium 8.3 L Magnesium 1.5 L PFSH CHF (congestive heart failure) (Chronic) Insulin dependent diabetes mellitus (Chronic) Pancreatitis (Chronic) Hypertriglyceridemia (Chronic) Cardiomyopathy, alcoholic (Chronic) Recurrent acute pancreatitis (Acute) Alcohol dependence, in remission (Chronic) Diabetes mellitus type 2 in obese (Chronic) LBBB (left bundle branch block) (Chronic) CHF (congestive heart failure) (Chronic) Essential hypertension (Chronic) Pancreatic pseudocyst (Chronic) Lung nodule (Chronic) EKG abnormalities (Chronic) History of implantable cardioverter-defibrillator (ICD) placement (Resolved) History of tonsillectomy (Resolved) Cholecystectomy Colonoscopy - IV Sedation (06/20/16) Splenomegaly Social History Smoking/Tobacco Use Status: Never alcohol intake: former substance use type: does not use
--- NOTE | 2018-06-24 12:54 | DSE_ITS ---
Date of service: 06/24/18 Time of Service: 12:41 DS: Diagnosis Discharge Diagnosis (1) Recurrent acute pancreatitis: Status: Acute (2) Insulin dependent diabetes mellitus: Status: Chronic (3) Hypertriglyceridemia: Status: Chronic (4) Essential hypertension: Status: Chronic Discharge Plan Disposition Patient Disposition: HOME Condition: Stable Discharge Details Reason For Visit: PANCREATITIS, HYPERGLYCEMIA Admit Date/Time: 06/19/18 18:45 Admit Provider: Kalyan Bauer Attending Provider: Kalyan Bauer Primary Care Provider: Dwain Mercado Hospital Course Hospital Course: Sonny Henning is a 63 year old man with a past medical history significant for chronic pancreatitis with recurrent acute flares, history of ETOH, as well as significant hypertriglyceridemia admitted from [facility] Emergency Department on with a diagnosis of Acute Pancreatitis. He had an abdominal ultrasound that showed probable hepatic steatosis. No other significant abnormality is seen. Mr. Henning has a history of recurrent pancreatitis, ETOH abuse in remission, and Hypertriglyceridemia. He also carries the diagnosis of DM, HTN, non- ischemic Cardiomyopathy likely on the basis of former alcohol use s/p AICD placement. Patient was admitted last September and again last month (05/14-2017) for hypertriglyceridemia associated pancreatitis. He presented this time with acute epigastric abdominal pain that began on the morning of admission associated with nausea and bilious vomiting. He was found to have recurrent pancreatitis with a lipase of 443 but triglycerides of 2690. He reported that he has had to cut down on some of his medicines due to cost. He says that he is now in the 'donut hole' for his Medicare prescription coverage, and as such had not taken his Creon and other medications for some time, and has cut down his insulin due to costs. On presentation his glucose was also elevated at 423. He was referred for admission to the ICU on insulin drip and IV fluids to bring his triglycerides down below 500. His triglycerides came down with the insulin drop, he moved out of the ICU and began to take food. He tolerated a regular diet without increased abdominal pain. His blood sugars remained in an acceptable range. By the day of discharge , his triglycerides were down to 468. His lipase peaked on 06/20 at 1423 and normalized the following day to 239. His magnesium was noted to be low at 1.5 on the day of discharge, he was given magnesium supplementation and will take an increased dose at home and have follow up blood work as an outpatient. Care management worked with him on ensuring that he would be able to get his medications as this was directly related to this admission. He was provided with resources that he will need to follow up on as an outpatient. His is also currently working on obtaining his necessary medications. He will follow up with his PCP as scheduled. He will have follow up blood work to include Magnesium and triglycerides. Home Meds and New Rx's Prescriptions: New atorvastatin [Lipitor] 40 mg Tablet 40 mg PO HS Qty: 30 RF: 0 Continue lisinopril 10 MG tablet 2.5 mg PO DAILY Qty: 30 RF: 11 carvedilol 25 MG tablet 12.5 mg PO BID Qty: 60 RF: 11 ranitidine HCl 150 MG capsule 300 mg PO DAILY RF: 0 furosemide 20 MG tablet 20 mg PO DAILY RF: 0 multivitamin [Multiple Vitamins] 1 TAB tablet 1 tab PO DAILY Qty: 30 RF: 0 magnesium oxide 400 MG tablet 400 mg PO DAILY Qty: 30 RF: 0 [id number]-lqvgzcv [Creon] 1 EACH capsule,delayed release(DR/EC) 2 ea PO BID RF: 0 spironolactone 25 mg Tablet 25 mg PO DAILY RF: 0 insulin lispro [Humalog KwikPen Insulin] 100 UNIT/ML insulin pen 33 unit SQ DAILY RF: 0 insulin detemir U-100 [Levemir FlexTouch U-100 Insuln] 100 UNIT/ML insulin pen 60 units SQ QPM RF: 0 insulin detemir U-100 [Levemir FlexTouch U-100 Insuln] 100 UNIT/ML insulin pen 60 units SQ QAM RF: 0 fenofibrate 160 MG tablet 160 mg PO DAILY Qty: 30 RF: 0 Discontinued atorvastatin 10 mg Tablet 10 mg PO .QHS RF: 0 Discharge Instructions Instructions: Pancreatitis (DC), Diabetic Hyperglycemia (DC) Additional Instructions: Take your magnesium two times daily for the next 3 days. You will have blood work done on 06/27/18 to reassess your Magnesium. Take all of your medications as prescribed. Your atorvastatin dose has been increased to 40 mg daily. Take care! Stand Alone Forms: Nursing Discharge Form Referrals: Dwain Mercado [Primary Care Provider] - 07/08/18 10:15 am Activity:: Activity as Tolerated Equipment/Supplies:: No Equipment Needed Diet:: Carb Counting Discharge Orders Discharge Orders: Discharge Order (Routine); Ordered 06/24/18 Ordered By: Angi Diaz Other Ambulatory Orders: Lipid 2 (Routine) Timeframe: 20180627 Location: Determined by Patient Ordered By: Angi Diaz Magnesium (Routine) Timeframe: 20180627 Location: Determined by Patient Ordered By: Angi Diaz Exam Narrative Exam Narrative: General: Alert and Orietned x3, sitting in the chair, looks well , in no acute distress. HEENT: Normocephalic, atraumatic, mucous membranes moist, pupils equal and round , EOMI Heart: Regular rate and rhythm, no murmur, click gallop or rub. Lungs: respirations even and unlabored, lung sounds clear to auscultation throughout. Abdomen: soft, nontender on palpation, nondistended Extremities: no clubbing, cyanosis or edema, BLE's, 1+ pedal pulses bilaterally. DS: Data Vitals/I&O Vitals and I&O: Vital Signs Temperature 37.0 C 06/24/18 07:13 Temperature Source Tympanic 06/24/18 07:13 Pulse 74 06/24/18 07:13 Pulse Rhythm Regular 06/24/18 07:25 Pulse 80 06/22/18 18:00 Respiratory Rate 17 06/24/18 07:13 Respiratory Effort Non-Labored 06/24/18 07:25 Respiratory Depth Normal 06/24/18 07:25 Respiratory Pattern Normal 06/24/18 07:25 Blood Pressure 121/75 06/24/18 07:13 Blood Pressure Mean 84 06/22/18 16:01 Blood Pressure Position Supine 06/22/18 16:00 Pulse Oximetry 96 06/24/18 07:20 Oxygen Delivery Method Room Air 06/24/18 07:20 Oxygen Flow Rate 0 06/24/18 07:20 Pain Level 0 06/23/18 11:20 Intake & Output 06/23/18 06/24/18 06/24/18 23:59 11:59 23:59 Intake Total 2672.5 / 2672.5 2084 / 2084 Output Total 1200 / 1200 1500 / 1500 Balance 1472.5 / 1472.5 585 / 585 Weight 119.4 kg Intake: IV 1952.5 / 1952.5 1745 / 1745 Oral 720 / 720 340 / 340 Output: Urine 1200 / 1200 1500 / 1500 Other: Urine Color Yellow Yellow Urine Appearance Clear Clear Urine Odor None Normal Comment Void x1 in the urinal. Stool Size Moderate Stool Characteristics Soft Liquid Brown Voiding Methods Urinal Urinal Completed studies during hospitalization [Text1]: 06/20/18: ABDOMEN ULTRASOUND: Hepatic parenchyma appears of increased echogenicity with decrease through transmission suggesting hepatic steatosis. Dependent portions of the liver are not visualized. Patient has had a previous cholecystectomy. No biliary dilatation is seen. Visualized portions of the pancreas are unremarkable. Kidneys appear normal with no evidence of hydronephrosis or nephrolithiasis. Spleen has reportedly been surgically removed. Abdominal aorta and IVC are of normal diameter. Probable 3.8 cm. splenule noted in the left upper quadrant. CONCLUSION: Probable hepatic steatosis. No other significant abnormality is seen Labs on day of discharge: Labs from last 24 hours 06/24/18 06/24/18 06:07 06:07 WBC 9.58 RBC 3.63 L Hgb 11.9 L Hct 36.0 L MCV 99.2 H MCH 32.8 MCHC 33.1 RDW 15.2 H Plt Count 239 MPV 13.0 H Immature Gran % 0.1 Neutrophils % 55.4 Lymphocytes % 31.2 Monocytes % 10.2 Eosinophils % 2.9 Basophils % 0.2 Absolute Neutrophils 5.30 Absolute Lymphocytes 2.99 Absolute Monocytes 0.98 H Absolute Eosinophils 0.28 Absolute Basophils 0.02 Sodium 139 Potassium 4.0 Chloride 107 Carbon Dioxide 23.4 Anion Gap 8.6 BUN 8 Creatinine 0.94 Estimated GFR/1.73 m2 >= 60.00 Glucose 178 H D Calcium 8.3 L Magnesium 1.5 L PFSH CHF (congestive heart failure) (Chronic) Insulin dependent diabetes mellitus (Chronic) Pancreatitis (Chronic) Hypertriglyceridemia (Chronic) Cardiomyopathy, alcoholic (Chronic) Recurrent acute pancreatitis (Acute) Alcohol dependence, in remission (Chronic) Diabetes mellitus type 2 in obese (Chronic) LBBB (left bundle branch block) (Chronic) CHF (congestive heart failure) (Chronic) Essential hypertension (Chronic) Pancreatic pseudocyst (Chronic) Lung nodule (Chronic) EKG abnormalities (Chronic) History of implantable cardioverter-defibrillator (ICD) placement (Resolved) History of tonsillectomy (Resolved) Cholecystectomy Colonoscopy - IV Sedation (06/20/16) Splenomegaly Social History Smoking/Tobacco Use Status: Never alcohol intake: former substance use type: does not use
--- NOTE | 2018-06-24 13:00 | CMDISCH_ITS ---
LACE Index Scoring Tool - Questions: Length of Stay (in days): 4 - 6 Acuity (Admit via E.D.?): Yes Comorbidities: Diabetes w/o Complication, Congestive Heart Failure E.D. Visits: 6 - Answers: Total Score: 14 Risk of Readmission: High Risk Care Management Discharge Reason for Hospitalization: Recurrent acute pancreatitis Discharge Plan: Stephanie had requested assistance in regards to payment for insulin upon admission. Former CM faxed the physician portion of the [employer] Patient Assistance Stan to [employer] Dr. Lowery at [facility] on 06/20/18. Sonny is now preparing for discharge-CM provided additional outlets for offsetting insulin costs including [employer] and [employer] and a direct internet coupon for Levemir. CM spoke with Dr. Lowery's Salon/Spa Manager ; Ángel and Ángel agreed to complete paperwork and fax to this typewriter tester. Afterward , it became apparent that Sonny was ineligible for [employer] Patient Assistance due to Medicare Part D coverage through [employer]. CM encouraged Sonny to follow up with Adam Anthony at [facility] through the [employer] and faxed referral as well as to Lashell Bauer; KILEY at [facility]. CM provided [facility] information and materials as well. Sonny will transport via private vehicle with his . Patient/Family Education Needs: Review discharge instructions, follow up plan of care.
== END 2018-06-24 15:40 | disposition home or self-care (01) | DRG 439 ==
LOC: ER 20:35 → ICU 21:59 → MS 06-22 19:49
PROVIDERS: Internal Medicine; Physician Assistant; Admitting Provider Internal Medicine; Emergency Provider Nurse Practitioner Family; PCP Specialist/Technologist Athletic Trainer; Visit Provider Internal Medicine
DX: K85.90 Acute pancreatitis without necrosis or infection, unspecified (principal); I42.6 Alcoholic cardiomyopathy; I50.20 Unspecified systolic (congestive) heart failure; K86.1 Other chronic pancreatitis; Z95.810 Presence of automatic (implantable) cardiac defibrillator; F10.21 Alcohol dependence, in remission; I10 Essential (primary) hypertension; E83.42 Hypomagnesemia; E11.65 Type 2 diabetes mellitus with hyperglycemia; T47.5X6A Underdosing of digestants, initial encounter; T38.3X6A Underdosing of insulin and oral hypoglycemic [antidiabetic] drugs, initial encounter; Z91.120 Patient's intentional underdosing of medication regimen due to financial hardship
CPT/HCPCS: 36415; 36416; 80048; 80053; 80061; 80076; 82962; 83690; 83721; 96361; 96374; 96375; 96376; 99222; 99232; 99233; 99239; 99285; J1650; 76700; 81003; 83605; 83735; 84478; 84484; 85025; 99223; J2405; J3480; J3490

== ENCOUNTER 2018-06-27 07:33 | Outpatient (CLI) | payer MEDICARE, OTHER, SELFPAY ==
[2018-06-27 08:57] LABS: Cholesterol 206 mg/dL (50-200); HDL Cholesterol 25 mg/dL (40-60); LDL CHOLESTEROL 135 mg/dL (<100); Magnesium 1.6 mg/dL (1.8-2.4); Triglyceride 257 mg/dL (30-150)
== END 2018-06-27 07:53 ==
PROVIDERS: PCP Specialist/Technologist Athletic Trainer; Visit Provider Nurse Practitioner
DX: E78.1 Pure hyperglyceridemia (principal); K85.90 Acute pancreatitis without necrosis or infection, unspecified; E83.42 Hypomagnesemia
CPT/HCPCS: 36415; 80061; 83721; 83735

== ENCOUNTER 2018-12-17 14:22 | Inpatient (IN) | payer MEDICARE, OTHER, SELFPAY ==
[2018-12-17] VITALS (48 sets, daily range): BP systolic 105–146; BP diastolic 50–77; PULSE 70–82; RESP 16–20; TEMP 35.9–37.1; O2SAT 89–98
--- NOTE | 2018-12-17 15:07 | W.ED.GENAD ---
Discharge Plan Discharge Details Chief Complaint: Abd Prob Admit Date/Time: 12/17/18 18:13 Admit Provider: Kalyan Bauer Attending Provider: Kalyan Bauer Primary Care Provider: Dwain Mercado ED Provider: Sandra Murry Home Meds and New Rx's Prescriptions: No Action lisinopril 10 MG tablet 2.5 mg PO DAILY Qty: 30 RF: 11 carvedilol 25 MG tablet 12.5 mg PO BID Qty: 60 RF: 11 ranitidine HCl 150 MG capsule 300 mg PO DAILY RF: 0 furosemide 20 MG tablet 20 mg PO DAILY RF: 0 multivitamin [Multiple Vitamins] 1 TAB tablet 1 tab PO DAILY Qty: 30 RF: 0 magnesium oxide 400 MG tablet 400 mg PO DAILY Qty: 30 RF: 0 Creon 1 EACH capsule,delayed release(DR/EC) 2 ea PO BID RF: 0 spironolactone 25 mg Tablet 25 mg PO DAILY RF: 0 atorvastatin [Lipitor] 40 mg Tablet 40 mg PO HS Qty: 30 RF: 0 Humalog KwikPen Insulin 100 UNIT/ML insulin pen 33 unit SQ DAILY RF: 0 Levemir FlexTouch U-100 Insuln 100 UNIT/ML insulin pen 60 units SQ QPM RF: 0 Levemir FlexTouch U-100 Insuln 100 UNIT/ML insulin pen 60 units SQ QAM RF: 0 fenofibrate 160 MG tablet 160 mg PO DAILY Qty: 30 RF: 0 Discharge Data Discharge Date/Time-TO BE ENTERED AT DEPARTURE: 12/17/18 20:14 Medical Decision Making <Ortega Frias NP - Last Filed: 12/18/18 09:51> Patient presenting to the emergency department for chief complaint of abdominal pain. Patient states that this started at 930 this morning and was about an hour after eating his breakfast. He does state some associated nausea and vomiting and that symptoms are very similar to when he had previous pancreatitis. Patient states that he has not had a drink in almost 4 years and denies any recent relapse or alcohol intake. Patient also denies fever chills, diarrhea, chest pain shortness of breath. Physical exam is positive for epigastric and left upper quadrant tenderness, otherwise abdomen is soft, hypoactive bowel sounds, no CVA tenderness, regular cardiac and respiratory examination. Plan to check labs and consider CT imaging. Pending results patient given hydromorphone and Zofran. <KE Parra - Last Filed: 12/17/18 18:26> Care transitioned to myself from Emilio Frias NP with imaging pending. Reviewed labs with the patient. Lipase WNL. Mild leukocytosis noted. Son pulled me aside concerned that patient continues to drink. Reports that hte patient hides this from his family but that son has found ETOH hidden in Coke bottles and empty ETOH containers. Patient going to CT. CT concerning for hazy density in the fat along the pancreatic head. Advised is less prominent on exam prior examination will correlate with possible pancreatitis. Given the patient's history of recurrent pancreatitis as well as to coordinate this visit past, though this is likely acute pancreatitis despite his lipase being within normal limits. Patient was received in the 4 mg of Zofran. He is with 2 L of fluid. Will discuss admission with hospitalist Consulted with the hospitalist who agrees to admission. Patient is scheduled for surgery at [facility] on Saturday for replacement of his defibrillator, he and his are very concerned about the. HPI <Ortega Frias NP - Last Filed: 12/18/18 09:51> General Mode of arrival: ambulatory. Date/Time Provider Initiated Documentation: 12/17/18 14:33. Limitations to Documentation: no limitations. Information obtained by: patient and RN notes reviewed. History of Present Illness 63 year old M presents to the emergency department with the chief complaint of Abdominal pain, with intensity rated at 8. Quality is described as sharp, and is localized to the abdomen (Epigastrium and left upper quadrant). Patient started experiencing this hour(s) (5) and it has been constant. Eating worsens symptoms (Started 1 hour after food) . Patient did receive the following treatments prior to arrival, none Related Data Home Medications Medication Instructions Recorded Confirmed multivitamin [Multiple Vitamins] 1 tab PO DAILY #30 tab 01/28/16 12/17/18 lisinopril 2.5 mg PO DAILY #30 tab-cap 09/05/16 12/17/18 magnesium oxide 400 mg PO DAILY #30 tab 01/20/17 12/17/18 carvedilol 12.5 mg PO BID #60 tab-cap 03/20/17 12/17/18 Creon 2 ea PO BID 05/07/17 12/17/18 Humalog KwikPen Insulin 33 unit SQ DAILY 06/13/17 12/17/18 Levemir FlexTouch U-100 Insuln 60 units SQ QAM 06/13/17 12/17/18 Levemir FlexTouch U-100 Insuln 60 units SQ QPM 06/13/17 12/17/18 fenofibrate 160 mg PO DAILY #30 tablet 10/02/17 12/17/18 furosemide 20 mg PO DAILY tab-cap 12/04/17 12/17/18 ranitidine HCl 300 mg PO DAILY tab-cap 12/04/17 12/17/18 spironolactone 25 mg PO DAILY 05/14/18 12/17/18 atorvastatin [Lipitor] 40 mg PO HS #30 tab 06/24/18 12/17/18 Previous Rx's Medication Instructions Recorded multivitamin [Multiple Vitamins] 1 tab PO DAILY #30 tab 01/28/16 magnesium oxide 400 mg PO DAILY #30 tab 01/20/17 fenofibrate 160 mg PO DAILY #30 tablet 10/02/17 atorvastatin [Lipitor] 40 mg PO HS #30 tab 06/24/18 Allergies Allergy/AdvReac Type Severity Reaction Status Date / Time No Known Allergies Allergy Unverified 12/17/18 14:36 General Stated Complaint: Abd Prob KOLBY: 3 Review of Systems <Ortega Frias NP - Last Filed: 12/18/18 09:51> Constitutional Denies chills, Denies fever(s) and Reports poor appetite Cardiovascular Denies chest pain and Denies dyspnea Respiratory Denies cough and Denies dyspnea Gastrointestinal Reports as per HPI, Reports abdominal pain, Denies melena, Denies change in bowel habits, Denies constipation, Denies diarrhea, Reports nausea and Reports vomiting Genitourinary Denies hematuria, Denies difficulty urinating, Denies urinary hesitancy, Denies urinary incontinence and Denies urinary urgency Integumentary/Breasts Denies rash PFSH <Ortega Frias NP - Last Filed: 12/18/18 09:51> Medical History CHF (congestive heart failure) (Chronic) Insulin dependent diabetes mellitus (Chronic) Pancreatitis (Chronic) Hypertriglyceridemia (Chronic) Cardiomyopathy, alcoholic (Chronic) Recurrent acute pancreatitis (Acute) Alcohol dependence, in remission (Chronic) Diabetes mellitus type 2 in obese (Chronic) LBBB (left bundle branch block) (Chronic) CHF (congestive heart failure) (Chronic) Essential hypertension (Chronic) Pancreatic pseudocyst (Chronic) Lung nodule (Chronic) EKG abnormalities (Chronic) Surgical History History of implantable cardioverter-defibrillator (ICD) placement (Resolved) History of tonsillectomy (Resolved) Cholecystectomy Colonoscopy - IV Sedation (06/20/16) Splenomegaly Social History Smoking/Tobacco Use Status: Never Alcohol Intake: former Drug use: Never Substance use type: does not use Details: quit 2015 Do you feel safe at home: Yes Do you feel safe in your relationship?: Yes Exam <Ortega Frias NP - Last Filed: 12/18/18 09:51> Const General: cooperative Orientation: alert, awake and oriented x3 Resp Effort & Inspection: normal respiratory effort and able to speak in complete sentences Auscultation: clear to auscultation bilaterally Cardio Rate: regular rate Rhythm: regular rhythm Heart Sounds: S1 normal and S2 normal GI Palpation: soft, no hepatosplenomegaly, not firm, no guarding, no masses, no pulsatile masses, not rigid, no splenomegaly and tender in the epigastrum and in the LUQ; not at McBurney's point, Gonzalez's sign negative and Rovsing's sign negative Auscultation: normal bowel sounds Back/Spine/Pelvis Back: no CVA tenderness Neuro General: alert, awake, oriented x3 and gait normal Course <Ortega Frias NP - Last Filed: 12/18/18 09:51> Vital Signs Temperature 36.8 C 12/17/18 14:31 Pulse 82 12/17/18 14:31 Respiratory Rate 20 12/17/18 14:31 Blood Pressure 142/75 H 12/17/18 14:31 Pulse Oximetry 97 12/17/18 14:31 Temperature 36.8 C 12/17/18 14:31 Temperature Source Temporal Artery Scan 12/17/18 14:31 Pulse 82 12/17/18 14:31 Respiratory Rate 20 12/17/18 14:31 Respiratory Effort Non-Labored 12/17/18 14:34 Blood Pressure 142/75 H 12/17/18 14:31 Blood Pressure Position Sitting 12/17/18 14:31 Pulse Oximetry 97 12/17/18 14:31 Oxygen Delivery Method Room Air 12/17/18 14:31 Oxygen Flow Rate 0 12/17/18 14:31 Pain Level 8 12/17/18 14:31 Sign Out <Ortega Frias NP - Last Filed: 12/18/18 09:51> Sign Out Data: Sign Out Comment: Patient signed out to Natalee Murry pending labs, and CT imaging, disposition and any further treatment as needed. Last updated by Ortega Frias NP at 12/17/18 16:00
[2018-12-17] MEDS: Ondansetron 4 MG/2 ML VIAL IVP (15:22)
[2018-12-17] MEDS: HYDROmorphone 2 MG/ML VIAL 1 MG IVP (15:22)
[2018-12-17] MEDS: Normal Saline 1,000 ML 1000 ML IV ×2 (15:23→16:40)
[2018-12-17 15:25] LABS: Abs Immature Grans 0.02 k/cumm (0.0-0.09); Absolute Basophil Count 0.05 k/cumm (0.0-0.2); Absolute Lymphocyte Count 3.47 k/cumm (1.2-3.4); Absolute Monocyte Count 1.03 k/cumm (0.11-0.7); Basophils % 0.4; Eosinophils % 1.9; HCT 40.5 % (40.0-50.0); HGB 13.6 g/dL (13.5-17.5); Immature Grans % 0.2; Lymphocytes % 30.6; Mean Corp. HGB Concentration 33.6 g/dL (32.0-36.0); Mean Corpuscular Hemoglobin 32.6 pg (27.0-33.0); Mean Corpuscular Volume 97.1 fL (80-95); Mean Platelet Volume 11.1 fL (8.0-11.0); Monocytes % 9.1; Neutrophils % 57.8; Platelet Count 354 x1000/uL (130-400); RBC 4.17 m/cumm (4.50-6.00); RBC Distribution Width 14.7 % (11.8-14.1); White Blood Cell Count 11.34 k/cumm (4.4-10.8)
[2018-12-17 15:26] LABS: Absolute Eosinophil Count 0.22 k/cumm (0.0-0.7); Absolute Neutrophil Count 6.55 k/cumm (1.2-6.7)
[2018-12-17 15:28] LABS: ALT 24 U/L (12-78); AST 21 U/L (15-37); Albumin 3.6 g/dL (3.4-5.0); Alkaline Phosphatase 48 U/L (46-116); Anion Gap 10.1 mmol/L (3-11); BUN 25 mg/dL (7-18); Bilirubin, Total 0.2 mg/dL (0.2-1.0); CO2 25.9 mmol/L (21.0-32.0); CREATININE 1.38 mg/dL (0.70-1.30); Calcium 9.5 mg/dL (8.5-10.1); Chloride 103 mmol/L (98-107); Estimated GFR 51.71 (mL/min/1.73m2); Glucose 153 mg/dL (70-100); Lipase 113 U/L (73-393); Potassium 3.9 mmol/L (3.5-5.1); Sodium 139 mmol/L (136-145); Total Protein 7.7 g/dL (6.4-8.2)
[2018-12-17 16:18] LABS: Troponin I < 0.02 ng/mL (0.00-0.06)
--- NOTE | 2018-12-17 17:02 | DI.CT_ITS ---
SYMPTOM/DIAGNOSIS: ABD PAIN ABDOMEN AND PELVIC CT: The study was carried out according to the usual protocol with an intravenous administration of 100 cc's of Omnipaque 350. Note is made of a region of atelectasis or scarring involving the right lower lobe. The liver is normal. The patient is status post cholecystectomy. There may be minimal hazy density within the fat surrounding the pancreatic head, this finding less prominent than on a prior examination. Correlation with these findings regarding the possibility of pancreatitis is suggested. There is no ductal dilatation. The patient is status post splenectomy. The adrenals are normal. The kidneys are normal. There is no evidence of hydronephrosis. Note is made of colonic diverticulosis. There is no evidence of a localized bowel abnormality. There is no evidence of obstruction. The bladder is unremarkable. The reproductive organs as visualized are unremarkable. There is no evidence of free air or free fluid in the intraperitoneal space. No acute bony abnormality is seen. Note is made of metallic fragments within the right lower posterior chest wall, unchanged. This finding could represent cellulitis. There is no demonstrated abscess. There are atherosclerotic changes involving the aorta without evidence of an aneurysm. There is no evidence of lymphadenopathy. SUMMARY: There is mild fat hazy density in the region of the pancreatic head. The possibility of pancreatitis is raised. Clinical correlation is suggested. Note is made of skin thickening with hazy density stranding of the subcutaneous fat over the anterior right side of the abdomen which may be seen in cellulitis. There is no evidence of an abscess.
[2018-12-17] MEDS: Omnipaque 350 MG/ML 100 ML BTL IJ (17:06)
[2018-12-17] MEDS: Ondansetron 4 MG/2 ML VIAL (17:15)
--- NOTE | 2018-12-17 17:26 | DI.VRAD_ITS ---
EXAM: CT Abdomen and Pelvis With Contrast EXAM DATE/TIME: 12/17/2018 3:37 PM CLINICAL HISTORY: 63 years old, male; Localized; Prior surgery; Surgery date: 6+ months; Surgery type: Gallbladder removal and spleen removal years ago. ; Patient HX: Upper abdominal pain since this morning. TECHNIQUE: Imaging protocol: Axial computed tomography images of the abdomen and pelvis with intravenous contrast. Coronal and sagittal reformatted images were created and reviewed. Radiation optimization: All CT scans at this facility use at least one of these dose optimization techniques: automated exposure control; mA and/or kV adjustment per patient size (includes targeted exams where dose is matched to clinical indication); or iterative reconstruction. Contrast material: OMNIPAQUE 350; Contrast volume: 100 ml; Contrast route: IV; COMPARISON: CT ABD PELVIS WITH CONTRAST 09/29/2017 3:41 PM FINDINGS: Lungs: Chronic atelectasis and/or scar in the right lung base. ABDOMEN: Liver: Unremarkable. No mass. Gallbladder and bile ducts: Status post cholecystectomy. Pancreas: Minimal hazy density within the fat surrounding the pancreatic head, less prominent than that seen on the prior examination. Correlate with possible pancreatitis. No pancreatic duct dilatation. Spleen: Status post splenectomy with splenule, unchanged. Adrenals: Normal. No mass. Kidneys and ureters: Unremarkable. No stones. No hydronephrosis. Stomach and bowel: Colonic diverticulosis without diverticulitis. No enteritis or bowel obstruction. The stomach is unremarkable. Appendix: No evidence of appendicitis. PELVIS: Bladder: Unremarkable as visualized. Reproductive: Unremarkable as visualized. ABDOMEN and PELVIS: Intraperitoneal space: Unremarkable. No free air. No significant fluid collection. Bones/joints: No acute fracture. Soft tissues: Metallic fragments within the right lower posterior chest wall, unchanged. Mild skin thickening as well as hazy density and stranding of the subcutaneous fat of the anterior and right side of the abdomen. The findings are nonspecific and may be seen with cellulitis. No abscess. Vasculature: Mild atherosclerosis of the abdominal aorta. No aneurysm. Lymph nodes: Unremarkable. No enlarged lymph nodes. IMPRESSION: 1. Mild hazy density in the fat surrounding the pancreatic head. Correlate with possible pancreatitis. 2. Skin thickening with hazy density and stranding of the subcutaneous fat of the anterior and right side of the abdomen, which may be seen with cellulitis. Dictated and Authenticated by: Dawson Ceja MD. Ordering:HILLARY Vivas MD
[2018-12-17 17:39] LABS: Bilirubin Negative (Negative); Blood Negative (Negative); Clarity Clear; Glucose Negative (Negative); Ketones Negative (Negative); Leukocyte Esterase Negative (Negative); Nitrite Negative (Negative); Urobilinogen 0.2 EU/dL (Up TO 0.2)
[2018-12-17 18:28] LABS: Amylase 30 U/L (25-115)
[2018-12-17 18:50] LABS: GGT 40 U/L (15-85)
[2018-12-17] MEDS: HYDROmorphone 2 MG/ML VIAL IVP (19:18)
[2018-12-17] MEDS: Enoxaparin 40 MG/0.4 ML SYR SC ×2 (21:00→21:04)
[2018-12-17] MEDS: Normal Saline 1,000 ML 250 ML IV (21:04)
[2018-12-17 21:20] LABS: *AMPHETAMINES SCREEN URINE Negative (Negative); *BARBITURATES SCREEN URINE Negative (Negative); *BENZODIAZEPINES SCREEN URINE Negative (Negative); Cannabinoids THC Negative (Negative); Cocaine Screen,Urine Negative (Negative); METHADONE URINE SCREEN Negative (Negative); OPIATES URINE SCREEN POSITIVE (Negative)
[2018-12-17 21:28] LABS: Tricyclic Antidepressants Negative (Negative)
--- NOTE | 2018-12-17 21:50 | W.PM.HP.N ---
Date of service: 12/17/18 Time of Service: 21:50 Assessment and Plan (1) Epigastric abdominal pain: Current visit: Yes Status: Acute not clear that this is pancreatitis although the peripancreatic fat stranding suggests this, however, his normal amylase and lipase suggests otherwise. I will keep him NPO for tonight and give him iv fluids. Need to watch that he does not get over corrected on his iv fluids in light of his cardiomyopathy. I will repeat his CMP, CBC, lipase in the a.m. I will place him on iv protonix. If his pain resolves overnight and at present his pain seems to be under control. Then we can try to feed him in the a.m.. (2) Diabetes mellitus type 2 in obese: Current visit: No Status: Chronic He reports that he has been compliant w/ his medications including his insulin and his creon. During his last admission in June 2018 he was cutting his med doses in half as he could not afford his insulin and his creaon. He denies any alcohol intake in 3 years. I have put him on half dose of his Lantus for tonight until he is able to eat then we will resume his usual dose of Lantus and put him on meal/carb coverage Regular insulin. I will cover his glucose w/ sliding scale Regular (3) Cardiomyopathy, alcoholic: Current visit: No Status: Chronic No evidence of acute CHF. No Sx of dyspnea, cough or chest pain or edema. No rales or wheezes on exam. I will use iv fluids judiciously but if he is taking po well then his iv fluids should be discontinued. (4) Essential hypertension: Current visit: No Status: Chronic continue his home meds of lisinopril but will hold his lasix and spironolactone for tonight. (5) Prerenal azotemia: Current visit: Yes Status: Acute judicious iv fluids as outlined above. History of Present Illness Narrative: 63 yr old male w/ PMH of chronic pancreatitis x 2 yrs, type 2 DM on insulin, HTN, HLD (hypertriglyceridemia), non-ischemic CM (s/p AICD), alcohol abuse (currently in remission) who presents w/ acute abdominal pain that began around 9 a.m. and subsequently developed vomiting around 10 am. Emesis consisted of his breakfast but no hematemesis. He had a normal BM this morning. No melena nor hematochezia. Evaluation in the ER included labs (CBC, CMP, lipase, UA, UDS) and CT of abdomen and pelvis w/ contrast. Labs were remarkable for CBC w/ WBC 11.300, elevated BUN 25, creatinine 1.38, normal LFT and normal amylase and lipase. However, CT of abdomen and pelvis demonstrated mild haziness of the fat surrounding the pancreatic head. He was treated in the ER w/ iv fluids, zofran and dilaudid. He is now admitted for treatment of abdominal pain, chronic pancreatitis. He reports that he was scheduled for biventricular pacer placement and replacement of his AICD this Saturday at [facility]. Review of Systems Review of Systems All systems reviewed & are unremarkable except as noted in HPI and below PFSH Medical History CHF (congestive heart failure) (Chronic) Insulin dependent diabetes mellitus (Chronic) Pancreatitis (Chronic) Hypertriglyceridemia (Chronic) Cardiomyopathy, alcoholic (Chronic) Recurrent acute pancreatitis (Acute) Alcohol dependence, in remission (Chronic) Diabetes mellitus type 2 in obese (Chronic) LBBB (left bundle branch block) (Chronic) CHF (congestive heart failure) (Chronic) Essential hypertension (Chronic) Pancreatic pseudocyst (Chronic) Lung nodule (Chronic) EKG abnormalities (Chronic) Surgical History History of implantable cardioverter-defibrillator (ICD) placement (Resolved) History of tonsillectomy (Resolved) Cholecystectomy Colonoscopy - IV Sedation (06/20/16) Splenomegaly Social History Smoking/Tobacco Use Status: Never Alcohol Intake: former Drug use: Never Substance use type: does not use Details: quit 2015 Do you feel safe at home: Yes Do you feel safe in your relationship?: Yes Meds Home Medications Medication Instructions Recorded Confirmed Type multivitamin [Multiple Vitamins] 1 tab PO DAILY #30 tab 01/28/16 12/17/18 Rx lisinopril 2.5 mg PO DAILY #30 tab-cap 09/05/16 12/17/18 History magnesium oxide 400 mg PO DAILY #30 tab 01/20/17 12/17/18 Rx carvedilol 12.5 mg PO BID #60 tab-cap 03/20/17 12/17/18 History Creon 2 ea PO BID 05/07/17 12/17/18 History Humalog KwikPen Insulin 33 unit SQ DAILY 06/13/17 12/17/18 History Levemir FlexTouch U-100 Insuln 60 units SQ QAM 06/13/17 12/17/18 History Levemir FlexTouch U-100 Insuln 60 units SQ QPM 06/13/17 12/17/18 History fenofibrate 160 mg PO DAILY #30 tablet 10/02/17 12/17/18 Rx furosemide 20 mg PO DAILY tab-cap 12/04/17 12/17/18 History ranitidine HCl 300 mg PO DAILY tab-cap 12/04/17 12/17/18 History spironolactone 25 mg PO DAILY 05/14/18 12/17/18 History atorvastatin [Lipitor] 40 mg PO HS #30 tab 06/24/18 12/17/18 Rx Allergies Allergy/AdvReac Type Severity Reaction Status Date / Time No Known Allergies Allergy Unverified 12/17/18 14:36 Exam Const General: cooperative, no acute distress and well groomed Nutritional Appearance: average body habitus and well nourished Orientation: alert, awake and oriented x3 [facility] Head: normal to inspection, no palpable skull fracture, normocephalic and atraumatic Ears: external ears normal and TM's normal bilaterally General nose exam: external nose normal, nares normal and no nasal discharge Face and sinus: normal facial exam, sinuses nontender and face symmetric Mouth: oral mucosae normal, lip normal, tongue normal, oropharynx normal and moist mucous membranes Throat: posterior oropharynx normal and uvula midline Eyes General: appearance normal, both eyes and all related structures Visual Escudero: normal visual escudero by confrontation Alignment and Position: alignment normal Periorbital: periorbital findings normal Eyelids: eyelids normal Conjunctivae: conjunctivae normal Sclera: sclerae normal Cornea: corneas normal Pupils: PERRL, normal by confrontation and accommodation normal EOM: EOM intact bilaterally Neck Neck: normal visual inspection, full ROM, no lymphadenopathy, trachea midline and supple Thyroid: thyroid normal Carotids: normal carotid upstroke Lymphatic: no lymphadenopathy noted Chest Chest: normal inspection of the chest and normal palpation of entire chest wall Resp Effort & Inspection: normal respiratory effort and able to speak in complete sentences Auscultation: clear to auscultation bilaterally Percussion: percussion normal Cardio Jugular venous pressure: no JVD Palpation: normal PMI Rate: regular rate Rhythm: regular rhythm Heart Sounds: S1 normal, abnormal opening sounds fixed, split S2 and murmur systolic early, mid, soft, II/ and at the apex Pulses: normal peripheral pulses GI Inspection: normal to inspection Palpation: soft, no hepatosplenomegaly and nontender Percussion: normal to percussion Auscultation: normal bowel sounds Back/Spine/Pelvis Back: no CVA tenderness Cervical Spine: normal cervical lordosis and cervical ROM normal Thoracic/Lumbar Spine: thoracic and lumbar spine normal to inspection and thoraco-lumbar ROM normal Skin General skin exam: no rashes or lesions noted, elasticity normal and turgor normal Rashes: no rashes Trauma: no lacerations or abrasions Hair: normal Nails: normal Neuro General: alert, awake, oriented x3, moves all extremities and no focal motor deficits Cranial Nerves: CN's II-XI intact bilaterally, PERRL, accommodation normal, EOM intact bilaterally, no nystagmus, facial strength normal, tongue midline, gag reflex normal, hearing normal, able to rotate head bilaterally, able to elevate shoulders bilaterally and Symmetric palate elevation Cognition: normal cognition Speech: speech normal Gait: normal gait Motor: muscle tone normal throughout, strength 5/5 throughout and no movement abnormalities noted Sensory Exam: no sensory deficits noted Extrem General: normal to inspection, full ROM, normal capillary refill, no joint enlargement, no clubbing, cyanosis or edema and no calf tenderness bilaterally Psych Appearance: grossly normal and well kempt Mental Status: mental status grossly normal Speech and Movement: speech and movement normal Mood: congruent mood Affect: normal affect Attitude: cooperative Thought Process: normal Thought Content: normal Judgment: judgment good Results Labs : 12/17/18 15:07 12/17/18 15:07 Laboratory Results - last 24 hr 12/17/18 12/17/18 12/17/18 15:07 15:07 15:07 WBC 11.34 H RBC 4.17 L Hgb 13.6 Hct 40.5 MCV 97.1 H MCH 32.6 MCHC 33.6 RDW 14.7 H Plt Count 354 MPV 11.1 H Immature Gran % 0.2 Neutrophils % 57.8 Lymphocytes % 30.6 Monocytes % 9.1 Eosinophils % 1.9 Basophils % 0.4 Absolute Neutrophils 6.55 Absolute Lymphocytes 3.47 H Absolute Monocytes 1.03 H Absolute Eosinophils 0.22 Absolute Basophils 0.05 Sodium 139 Potassium 3.9 Chloride 103 Carbon Dioxide 25.9 Anion Gap 10.1 BUN 25 H Creatinine 1.38 H Estimated GFR/1.73 m2 51.71 Glucose 153 H Calcium 9.5 Total Bilirubin 0.2 GGT AST 21 ALT 24 Alkaline Phosphatase 48 Troponin I < 0.02 Total Protein 7.7 Albumin 3.6 Amylase Lipase 113 Urine Color Urine Clarity Urine pH Ur Specific [place] Urine Protein Urine Ketones Urine Blood Urine Nitrite Urine Bilirubin Urine Urobilinogen Ur Leukocyte Esterase Urine Glucose Urine Opiates Screen Urine Methadone Screen Ur Barbiturates Screen Ur Tricyclics Screen Ur Amphetamines Screen U Benzodiazepines Scrn Urine Cocaine Screen Ur THC Screen 12/17/18 12/17/18 12/17/18 15:07 15:07 17:10 WBC RBC Hgb Hct MCV MCH MCHC RDW Plt Count MPV Immature Gran % Neutrophils % Lymphocytes % Monocytes % Eosinophils % Basophils % Absolute Neutrophils Absolute Lymphocytes Absolute Monocytes Absolute Eosinophils Absolute Basophils Sodium Potassium Chloride Carbon Dioxide Anion Gap BUN Creatinine Estimated GFR/1.73 m2 Glucose Calcium Total Bilirubin GGT 40 AST ALT Alkaline Phosphatase Troponin I Total Protein Albumin Amylase 30 Lipase Urine Color Yellow Urine Clarity Clear Urine pH 5.0 Ur Specific [place] 1.020 Urine Protein Negative Urine Ketones Negative Urine Blood Negative Urine Nitrite Negative Urine Bilirubin Negative Urine Urobilinogen 0.2 Ur Leukocyte Esterase Negative Urine Glucose Negative Urine Opiates Screen Urine Methadone Screen Ur Barbiturates Screen Ur Tricyclics Screen Ur Amphetamines Screen U Benzodiazepines Scrn Urine Cocaine Screen Ur THC Screen 12/17/18 17:10 WBC RBC Hgb Hct MCV MCH MCHC RDW Plt Count MPV Immature Gran % Neutrophils % Lymphocytes % Monocytes % Eosinophils % Basophils % Absolute Neutrophils Absolute Lymphocytes Absolute Monocytes Absolute Eosinophils Absolute Basophils Sodium Potassium Chloride Carbon Dioxide Anion Gap BUN Creatinine Estimated GFR/1.73 m2 Glucose Calcium Total Bilirubin GGT AST ALT Alkaline Phosphatase Troponin I Total Protein Albumin Amylase Lipase Urine Color Urine Clarity Urine pH Ur Specific [place] Urine Protein Urine Ketones Urine Blood Urine Nitrite Urine Bilirubin Urine Urobilinogen Ur Leukocyte Esterase Urine Glucose Urine Opiates Screen Positive Urine Methadone Screen Negative Ur Barbiturates Screen Negative Ur Tricyclics Screen Negative Ur Amphetamines Screen Negative U Benzodiazepines Scrn Negative Urine Cocaine Screen Negative Ur THC Screen Negative Last Vital Signs Temp 37.1 C 12/17/18 20:39 Pulse 74 12/17/18 20:39 Resp 16 12/17/18 20:39 BP 128/74 12/17/18 20:39 Pulse Ox 96 12/17/18 20:39
[2018-12-17] MEDS: Carvedilol 25 MG TAB 12.5 MG PO (23:20)
[2018-12-17] MEDS: Atorvastatin 40 MG TAB PO (23:20)
[2018-12-17] MEDS: Pantoprazole 40 MG VIAL IVP (23:20)
[2018-12-18] VITALS (8 sets, daily range): BP systolic 118–131; BP diastolic 72–77; PULSE 63–67; RESP 16–18; TEMP 36.3–36.5; O2SAT 96–98
[2018-12-18] MEDS: Normal Saline 1,000 ML 125 ML IV ×3 (03:10→18:50)
[2018-12-18 07:23] LABS: Abs Immature Grans 0.02 k/cumm (0.0-0.09); Absolute Basophil Count 0.03 k/cumm (0.0-0.2); Absolute Eosinophil Count 0.22 k/cumm (0.0-0.7); Absolute Lymphocyte Count 3.25 k/cumm (1.2-3.4); Absolute Monocyte Count 1.08 k/cumm (0.11-0.7); Absolute Neutrophil Count 6.99 k/cumm (1.2-6.7); Basophils % 0.3; Eosinophils % 1.9; HCT 37.9 % (40.0-50.0); HGB 12.1 g/dL (13.5-17.5); Immature Grans % 0.2; Mean Corp. HGB Concentration 31.9 g/dL (32.0-36.0); Mean Corpuscular Volume 100.3 fL (80-95); Mean Platelet Volume 11.5 fL (8.0-11.0); Monocytes % 9.3; Neutrophils % 60.3; Platelet Count 321 x1000/uL (130-400); RBC 3.78 m/cumm (4.50-6.00); RBC Distribution Width 15.1 % (11.8-14.1)
[2018-12-18 07:34] LABS: ALT 18 U/L (12-78); AST 17 U/L (15-37); Albumin 2.9 g/dL (3.4-5.0); Alkaline Phosphatase 41 U/L (46-116); Anion Gap 7.9 mmol/L (3-11); BUN 20 mg/dL (7-18); Bilirubin, Total 0.4 mg/dL (0.2-1.0); CO2 25.1 mmol/L (21.0-32.0); CREATININE 1.35 mg/dL (0.70-1.30); Calcium 8.4 mg/dL (8.5-10.1); Chloride 107 mmol/L (98-107); Estimated GFR 53.04 (mL/min/1.73m2); Glucose 133 mg/dL (70-100); Potassium 3.7 mmol/L (3.5-5.1); Sodium 140 mmol/L (136-145); Total Protein 6.4 g/dL (6.4-8.2)
[2018-12-18 07:45] LABS: Lipase 388 U/L (73-393)
[2018-12-18 07:59] LABS: Cholesterol 157 mg/dL (50-200); HDL Cholesterol 20 mg/dL (40-60); LDL CHOLESTEROL 79 mg/dL (<100); Triglyceride 487 mg/dL (30-150)
--- NOTE | 2018-12-18 08:08 | PDOC.CMIN ---
- If Service Date Differs Date of service: 12/18/18 Time of Service: 08:08 Care Management Initial Assess REASON FOR HOSPITALIZATION:: Epigastric Abdominal Pain PAST MEDICAL HISTORY/PAST SURGICAL HISTORY:: Medical History: CHF (congestive heart failure) (Chronic). Insulin dependent diabetes mellitus (Chronic). Pancreatitis (Chronic). Hypertriglyceridemia (Chronic). Cardiomyopathy, alcoholic (Chronic). Recurrent acute pancreatitis (Acute). Alcohol dependence, in remission (Chronic). Diabetes mellitus type 2 in obese (Chronic). LBBB (left bundle branch block) (Chronic). CHF (congestive heart failure) (Chronic). Essential hypertension (Chronic). Pancreatic pseudocyst (Chronic). Lung nodule (Chronic). EKG abnormalities (Chronic). Surgical History: History of implantable cardioverter-defibrillator (ICD) placement (Resolved). History of tonsillectomy (Resolved). Cholecystectomy. Colonoscopy - IV Sedation (06/20/16). Splenomegaly PREVIOUS FUNCTIONAL STATUS/SOCIAL/FAMILY SUPPORTS:: Sonny lives in a ranch style home in [facility] with his extended family. In addition to his , he has a son living in the home, his granddaughter, his son's girlfriend and her 2 children. In addition, Sonny's mother in law, who has early dementia, also lives with them andis cared for by the family. 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 CURRENT FUNCTIONAL STATUS:: Sonny was sitting up in bed during CM visit. He was pleasant and attentive and fully engaged in the conversation. He stated he had hoped to be discharged today because he was supposed to have surgery at [facility] tomorrow to replace his defibrillator with a pacer/defibrillator. He said he has been waiting for over 3 months to have the surgey but is having too much pain to be discharged. Sonny noted that he was feeling much better this morning until he had breakfast. After eating, he observed, the pain returned. He is now NPO. ADVANCE DIRECTIVES:: On file at [facility]. [facility] : Stephanie Moniqueon [phone] Has patient been provided with information about the portal?: Yes Did the patient sign up for the portal?: No (not yet) CODE STATUS:: Full Code INSURANCE COVERAGE / FINANCIAL ISSUES:: Medicare. [employer] [place] CURRENT HOME/COMMUNITY SERVICES/EQUIPMENT:: None PRIMARY CARE PHYSICIAN:: Dwain Mercado POTENTIAL DISCHARGE NEEDS:: Follow up with PCP and surgeon and discharge plan of care. PATIENT/FAMILY EDUCATION NEEDS:: Discharge Plan, limitations, followup plan of care Ask Me Three. TRANSPORTATION:: Via private automobile with when ready. PLAN:: Juan Jose is currently NPO and receiving IV fluids. He will likely be discharged home with no services when ready. CM will continue to support patient, family and discharge plan of care.
--- NOTE | 2018-12-18 08:19 | INITIAL_ITS ---
- If Service Date Differs Date of service: 12/18/18 Time of Service: 08:08 Care Management Initial Assess REASON FOR HOSPITALIZATION:: Epigastric Abdominal Pain PAST MEDICAL HISTORY/PAST SURGICAL HISTORY:: Medical History: CHF (congestive heart failure) (Chronic). Insulin dependent diabetes mellitus (Chronic). Pancreatitis (Chronic). Hypertriglyceridemia (Chronic). Cardiomyopathy, alcoholic (Chronic). Recurrent acute pancreatitis (Acute). Alcohol dependence, in remission (Chronic). Diabetes mellitus type 2 in obese (Chronic). LBBB (left bundle branch block) (Chronic). CHF (congestive heart failure) (Chronic). Essential hypertension (Chronic). Pancreatic pseudocyst (Chronic). Lung nodule (Chronic). EKG abnormalities (Chronic). Surgical History: History of implantable cardioverter-defibrillator (ICD) placement (Resolved). History of tonsillectomy (Resolved). Cholecystectomy. Colonoscopy - IV Sedation (06/20/16). Splenomegaly PREVIOUS FUNCTIONAL STATUS/SOCIAL/FAMILY SUPPORTS:: Sonny lives in a ranch style home in [facility] with his extended family. In addition to his , he has a son living in the home, his granddaughter, his son's girlfriend and her 2 children. In addition, Sonny's mother in law, who has early dementia, also lives with them andis cared for by the family. 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 CURRENT FUNCTIONAL STATUS:: Sonny was sitting up in bed during CM visit. He was pleasant and attentive and fully engaged in the conversation. He stated he had hoped to be discharged today because he was supposed to have surgery at [facility] tomorrow to replace his defibrillator with a pacer/defibrillator. He said he has been waiting for over 3 months to have the surgey but is having too much pain to be discharged. Sonny noted that he was feeling much better this morning until he had breakfast. After eating, he observed, the pain returned. He is now NPO. ADVANCE DIRECTIVES:: On file at [facility]. [facility] : Stephaniesita Moniqueon [phone] Has patient been provided with information about the portal?: Yes Did the patient sign up for the portal?: No (not yet) CODE STATUS:: Full Code INSURANCE COVERAGE / FINANCIAL ISSUES:: Medicare. [employer] [place] CURRENT HOME/COMMUNITY SERVICES/EQUIPMENT:: None PRIMARY CARE PHYSICIAN:: Dwain Mercado POTENTIAL DISCHARGE NEEDS:: Follow up with PCP and surgeon and discharge plan of care. PATIENT/FAMILY EDUCATION NEEDS:: Discharge Plan, limitations, followup plan of care Ask Me Three. TRANSPORTATION:: Via private automobile with when ready. PLAN:: Juan Jose is currently NPO and receiving IV fluids. He will likely be discharged home with no services when ready. CM will continue to support patient, family and discharge plan of care.
[2018-12-18] MEDS: Lisinopril 10 MG TAB 2.5 MG PO (08:55)
[2018-12-18] MEDS: Magnesium Oxide 400 MG TAB PO ×2 (08:55)
[2018-12-18] MEDS: Carvedilol 12.5 MG TAB PO ×2 (08:56→21:36)
[2018-12-18] MEDS: HYDROmorphone 2 MG/ML VIAL IVP ×3 (09:01→21:37)
[2018-12-18] MEDS: POTASSIUM CHLORIDE 20 MEQ, POTASSIUM CHLORIDE 10 MEQ 30 MEQ PO (09:07)
--- NOTE | 2018-12-18 11:52 | PHARADMIT ---
Addendum entered by Stephanie Jama 12/19/18 17:30: Pharmacy Note Subjective pt started on clears last night, advancing diet tonight to regular as tolerated Objective VS-okay SCr-1.09(improved) lipase-418(up) weight-118.4 (up from 108.8 12/17) Assessment furosemide restarted today- INTEGRATION SPECIALIST aware may cause/worsen pancreatitis Plan repeat lipase tomorrow, pts own finofibrate has been checked and put in pts own med bin upstairs possible transfer to [facility] for pacer change Original Note: Admission Pharmacy Clinical Review ABDOMINAL PAIN, CHRONIC PANCREATITIS Code Status Full Code Current Weight 116.4 kg Renally Cleared and Narrow Therapeutic Index Meds CrCl~61ml/min QTc Value / Action Taken BP Control, Fever BP 131/77 Afebrile pain 4/10 Electrolytes reviewed in range DVT Prophylaxis Lovenox 40mg Opiate Usage / Scheduled Bowel Regimen Ordered Dilaudid IVP/NO bowel meds...has been NPO, just starting regular breakfast Plt/SCr for Heparin / Enoxaparin Plt 321 SCr 1.35 INR for Warfarin H/H stable, WBC/Bands H/H 12.1/37.9 WBC 11.60 Antibiotic appropriateness n/a Cultures and Sensitivities n/a Surgical ABX d/c within 24 hr DM control / Insulin Dosing BG 130 (Levemir/Novolog) Heart Failure (Check EF%) (MEE's, B-Block, Diuretics) Coreg, Lisinopril IV to PO Switch Home Meds Reviewed Pt's own Fenofibrate Home Meds Not Ordered Furosemide &Spironolactone-held intentionally Creon, mvi, Ranitidine Comments LFT's normal, Hx of alcohol abuse Trending Lipase: 388 today Triglycerides: 487 Planning to advance diet slowly, has [facility] appt Saturday that he'd like to go to
--- NOTE | 2018-12-18 13:53 | PGE_ITS ---
Date of Service Date of service: 12/18/18 Time of Service: 13:48 Assessment and Plan (1) Epigastric abdominal pain: Current visit: Yes Status: Acute Reminiscent of previous episodes of pancreatitis. His lipase is up slightly today from admission at 388, still not markedly elevated. He continues to have pain in the epic gastric region and left upper quadrant, increased with oral intake. CT scan shows mild fat hazy density in the region of the pancreatic head, raising the possibility of pancreatitis. Given his history of pancreatitis, repeat lipase tomorrow. Advance diet to clear liquids for dinner as tolerated. He may have ice chips as tolerated. Continue to give gentle IV fluids, decrease rate. Continue pain control and antiemetics. (2) Prerenal azotemia: Current visit: Yes Status: Acute Slight improvement in renal function overnight with IV fluids. Continue gentle IV fluid hydration, decrease rate, repeat BMP in the morning. (3) Cardiomyopathy, alcoholic: Current visit: No Status: Chronic With LVEF of 30-35% on most recent echo (11/25/18). Does not appear to be in acute CHF exacerbation. Decrease IV fluids and monitor closely. Consider restarting home lasix tomorrow. (4) Hypertriglyceridemia: Current visit: No Status: Chronic Triglycerides elevated at 487 today, has been >2600 in the past. Continue Atorvastatin. (5) Diabetes mellitus type 2 in obese: Current visit: No Status: Chronic Blood glucose has been well controlled, 133 on morning labs today. Continue basal insulin at 1/2 usual dose while not eating. Continue short acting insulin per sliding scale. Continue to follow blood glucose before meals. Ensure ADA diet when taking PO. (6) Essential hypertension: Current visit: No Status: Chronic Under good control, 131/77 this morning. Continue to hold lasix and spironolactone, hold lisinopril in the setting of BERTHA. Consider resuming lasix tomorrow morning as above. (7) DVT prophylaxis: Current visit: No Status: Acute Subcutaneous Lovenox. Subjective Interval history since last seen: Mr. Henning attempted to advance his diet to full liquids this morning and experienced increased abdominal pain and nausea. His abdominal pain is in his midepigastric region and across his left upper quadrant. He has been intermittently nauseated. He was hoping to be released today as he was scheduled to have his pacer changed for an AICD tomorrow. He is calling to cancel as he knows he is not ready for discharge today. He has had pancreatitis in the past and presents promptly now when he begins to feel the symptoms associated with pancreatitis. He has not had any vomiting or diarrhea today. He denies dizziness, shortness of breath, coughing, wheezing, chest pain/pressure or palpitations, however, he reports feeling like he may be retaining some fluid in his hands. He has a cardiomyopathy with LVEF of 30-35% on most recent echo (11/25/17). He had a normal BM. He would like to hold off on oral intake until dinner time and try clear liquids at that time if his pain has improved. Exam Narrative Exam Narrative: General: He is a pleasant and cooperative, overweight man, appears stated age. He is in no acute distress. HEENT: Normocephalic, atraumatic. Pupils are equal and round. EOMs intact. Mucous membranes moist. Neck: Supple without JVD. Respiratory: Respirations are even and unlabored, lung sounds are clear to auscultation throughout. Cardiovascular: Heart has a regular rate and rhythm, non-tachycardic. Soft systolic murmur noted at the LSB, 08/27. GI: Large, round abdomen, soft, mildly distended, tender on palpation of eipgastric region and left side. Hypoactive bowel sounds throughout. Extremities: Well perfused without clubbing cyanosis or edema. Peripheral pulses palpable. Skin: No rash or lesion noted. Objective Objective Clinical Data: Abnormal lab results 12/17/18 12/17/18 12/18/18 Range/Units 15:07 15:07 06:10 WBC 11.34 H (4.4-10.8) k/cumm RBC 4.17 L (4.50-6.00) m/cumm Hgb (13.5-17.5) g/dL Hct (40.0-50.0) % MCV 97.1 H (80-95) fL MCHC (32.0-36.0) g/dL RDW 14.7 H (11.8-14.1) % MPV 11.1 H (8.0-11.0) fL Absolute Neutrophils (1.2-6.7) k/cumm Absolute Lymphocytes 3.47 H (1.2-3.4) k/cumm Absolute Monocytes 1.03 H (0.11-0.7) k/cumm BUN 25 H 20 H (7-18) mg/dL Creatinine 1.38 H 1.35 H (0.70-1.30) mg/dL Glucose 153 H 133 H (70-100) mg/dL Calcium 8.4 L (8.5-10.1) mg/dL Alkaline Phosphatase 41 L (46-116) U/L Albumin 2.9 L (3.4-5.0) g/dL Triglycerides 487 H (30-150) mg/dL HDL Cholesterol 20 L (40-60) mg/dL 12/18/18 Range/Units 06:10 WBC 11.60 H (4.4-10.8) k/cumm RBC 3.78 L (4.50-6.00) m/cumm Hgb 12.1 L (13.5-17.5) g/dL Hct 37.9 L (40.0-50.0) % MCV 100.3 H D (80-95) fL MCHC 31.9 L (32.0-36.0) g/dL RDW 15.1 H (11.8-14.1) % MPV 11.5 H (8.0-11.0) fL Absolute Neutrophils 6.99 H (1.2-6.7) k/cumm Absolute Lymphocytes (1.2-3.4) k/cumm Absolute Monocytes 1.08 H (0.11-0.7) k/cumm BUN (7-18) mg/dL Creatinine (0.70-1.30) mg/dL Glucose (70-100) mg/dL Calcium (8.5-10.1) mg/dL Alkaline Phosphatase (46-116) U/L Albumin (3.4-5.0) g/dL Triglycerides (30-150) mg/dL HDL Cholesterol (40-60) mg/dL Vital Signs Temperature 36.3 C L 12/18/18 07:35 Temperature Source Tympanic 12/18/18 07:35 Pulse 66 12/18/18 07:35 Pulse Rhythm Regular 12/18/18 08:14 Respiratory Rate 16 12/18/18 10:01 Respiratory Effort Non-Labored 12/18/18 08:14 Respiratory Depth Normal 12/18/18 08:14 Respiratory Pattern Normal 12/18/18 08:14 Blood Pressure 131/77 12/18/18 09:11 Blood Pressure Mean 79 12/17/18 20:00 Blood Pressure Position Sitting 12/17/18 14:31 Pulse Oximetry 97 12/18/18 07:55 Oxygen Delivery Method Nasal Cannula 12/18/18 09:11 Oxygen Flow Rate 2 12/18/18 09:11 Fraction of Inspired Oxygen (FIO2) 93 12/18/18 09:11 Pain Level 4 12/18/18 10:01 Intake & Output 12/17/18 12/18/18 12/18/18 23:59 11:59 23:59 Intake Total 2019 2703.333 / 2703.333 Balance 2019 2703.333 / 2703.333 Weight 108.862 kg 116.4 kg Intake: IV 2019. / 333 Oral 720 / 720 Other: Urine Color Pale Pale Yellow Urine Appearance Clear Clear Urine Odor None None Comment pt notice voiding in the tiolet pt voids independently in the tiolet Voiding Methods Toilet Toilet Laboratory Results WBC 11.60 k/cumm (4.4-10.8) H 12/18/18 06:10 RBC 3.78 m/cumm (4.50-6.00) L 12/18/18 06:10 Hgb 12.1 g/dL (13.5-17.5) L 12/18/18 06:10 Hct 37.9 % (40.0-50.0) L 12/18/18 06:10 MCV 100.3 fL (80-95) H D 12/18/18 06:10 MCH 32.0 pg (27.0-33.0) 12/18/18 06:10 MCHC 31.9 g/dL (32.0-36.0) L 12/18/18 06:10 RDW 15.1 % (11.8-14.1) H 12/18/18 06:10 Plt Count 321 x1000/uL (130-400) 12/18/18 06:10 MPV 11.5 fL (8.0-11.0) H 12/18/18 06:10 Immature Gran % 0.2 12/18/18 06:10 Neutrophils % 60.3 12/18/18 06:10 Lymphocytes % 28.0 12/18/18 06:10 Monocytes % 9.3 12/18/18 06:10 Eosinophils % 1.9 12/18/18 06:10 Basophils % 0.3 12/18/18 06:10 Absolute Neutrophils 6.99 k/cumm (1.2-6.7) H 12/18/18 06:10 Absolute Lymphocytes 3.25 k/cumm (1.2-3.4) 12/18/18 06:10 Absolute Monocytes 1.08 k/cumm (0.11-0.7) H 12/18/18 06:10 Absolute Eosinophils 0.22 k/cumm (0.0-0.7) 12/18/18 06:10 Absolute Basophils 0.03 k/cumm (0.0-0.2) 12/18/18 06:10 Sodium 140 mmol/L (136-145) 12/18/18 06:10 Potassium 3.7 mmol/L (3.5-5.1) 12/18/18 06:10 Chloride 107 mmol/L (98-107) 12/18/18 06:10 Carbon Dioxide 25.1 mmol/L (21.0-32.0) 12/18/18 06:10 Anion Gap 7.9 mmol/L (3-11) 12/18/18 06:10 BUN 20 mg/dL (7-18) H 12/18/18 06:10 Creatinine 1.35 mg/dL (0.70-1.30) H 12/18/18 06:10 Estimated GFR/1.73 m2 53.04 (mL/min/1.73m2) 12/18/18 06:10 Glucose 133 mg/dL (70-100) H 12/18/18 06:10 Calcium 8.4 mg/dL (8.5-10.1) L 12/18/18 06:10 Total Bilirubin 0.4 mg/dL (0.2-1.0) 12/18/18 06:10 GGT 40 U/L (15-85) 12/17/18 15:07 AST 17 U/L (15-37) 12/18/18 06:10 ALT 18 U/L (12-78) 12/18/18 06:10 Alkaline Phosphatase 41 U/L (46-116) L 12/18/18 06:10 Troponin I < 0.02 ng/mL (0.00-0.06) 12/17/18 15:07 Total Protein 6.4 g/dL (6.4-8.2) 12/18/18 06:10 Albumin 2.9 g/dL (3.4-5.0) L 12/18/18 06:10 Triglycerides 487 mg/dL (30-150) H 12/18/18 06:10 Total Cholesterol 157 mg/dL (50-200) 12/18/18 06:10 LDL Cholesterol Direct 79 mg/dL (<100) 12/18/18 06:10 HDL Cholesterol 20 mg/dL (40-60) L 12/18/18 06:10 Amylase 30 U/L (25-115) 12/17/18 15:07 Lipase 388 U/L (73-393) 12/18/18 06:10 Urine Color Yellow (Yellow) 12/17/18 17:10 Urine Clarity Clear 12/17/18 17:10 Urine pH 5.0 (5-8) 12/17/18 17:10 Ur Specific [place] 1.020 (1.005-1.025) 12/17/18 17:10 Urine Protein Negative mg/dL (Negative) 12/17/18 17:10 Urine Ketones Negative mg/dL (Negative) 12/17/18 17:10 Urine Blood Negative (Negative) 12/17/18 17:10 Urine Nitrite Negative (Negative) 12/17/18 17:10 Urine Bilirubin Negative (Negative) 12/17/18 17:10 Urine Urobilinogen 0.2 EU/dL (Up TO 0.2) 12/17/18 17:10 Ur Leukocyte Esterase Negative (Negative) 12/17/18 17:10 Urine Glucose Negative mg/dL (Negative) 12/17/18 17:10 Urine Opiates Screen Positive (Negative) 12/17/18 17:10 Urine Methadone Screen Negative (Negative) 12/17/18 17:10 Ur Barbiturates Screen Negative (Negative) 12/17/18 17:10 Ur Tricyclics Screen Negative (Negative) 12/17/18 17:10 Ur Amphetamines Screen Negative (Negative) 12/17/18 17:10 U Benzodiazepines Scrn Negative (Negative) 12/17/18 17:10 Urine Cocaine Screen Negative (Negative) 12/17/18 17:10 Ur THC Screen Negative (Negative) 12/17/18 17:10
[2018-12-18] MEDS: Pantoprazole 40 MG VIAL IVP (21:36)
[2018-12-18] MEDS: Atorvastatin 40 MG TAB PO (21:36)
[2018-12-18] MEDS: Enoxaparin 40 MG/0.4 ML SYR SC (21:36)
[2018-12-18] MEDS: Acetaminophen 325 MG TAB 650 MG PO (21:37)
[2018-12-18] MEDS: Normal Saline Flush 10 ML SYR IVP (21:44)
[2018-12-19] MEDS: HYDROmorphone 2 MG/ML VIAL IVP (03:25)
[2018-12-19 07:10] VITALS: BP 113/75; PULSE 63; RESP 18; TEMP 36.5; O2SAT 99
[2018-12-19 07:13] LABS: Abs Immature Grans 0.03 k/cumm (0.0-0.09); Absolute Basophil Count 0.02 k/cumm (0.0-0.2); Absolute Eosinophil Count 0.22 k/cumm (0.0-0.7); Absolute Lymphocyte Count 3.13 k/cumm (1.2-3.4); Absolute Monocyte Count 0.96 k/cumm (0.11-0.7); Absolute Neutrophil Count 7.05 k/cumm (1.2-6.7); Basophils % 0.2; Eosinophils % 1.9; HCT 37.5 % (40.0-50.0); HGB 11.8 g/dL (13.5-17.5); Immature Grans % 0.3; Lymphocytes % 27.4; Mean Corp. HGB Concentration 31.5 g/dL (32.0-36.0); Mean Corpuscular Hemoglobin 31.9 pg (27.0-33.0); Mean Corpuscular Volume 101.4 fL (80-95); Mean Platelet Volume 11.5 fL (8.0-11.0); Monocytes % 8.4; Neutrophils % 61.8; Platelet Count 273 x1000/uL (130-400); RBC Distribution Width 14.7 % (11.8-14.1); White Blood Cell Count 11.41 k/cumm (4.4-10.8)
[2018-12-19 07:18] LABS: Anion Gap 6.6 mmol/L (3-11); BUN 13 mg/dL (7-18); CO2 24.4 mmol/L (21.0-32.0); CREATININE 1.09 mg/dL (0.70-1.30); Calcium 8.1 mg/dL (8.5-10.1); Chloride 107 mmol/L (98-107); Glucose 125 mg/dL (70-100); Lipase 418 U/L (73-393); Potassium 3.7 mmol/L (3.5-5.1); Sodium 138 mmol/L (136-145)
[2018-12-19] MEDS: Carvedilol 12.5 MG TAB PO ×2 (08:12→20:01)
[2018-12-19] MEDS: Magnesium Oxide 400 MG TAB PO (08:12)
[2018-12-19 08:20] VITALS: O2SAT 97
[2018-12-19 09:11] VITALS: O2SAT 97
[2018-12-19] MEDS: POTASSIUM CHLORIDE 20 MEQ, POTASSIUM CHLORIDE 10 MEQ 30 MEQ PO (09:59)
--- NOTE | 2018-12-19 11:51 | W.PM.PROGNOT ---
Date of Service Date of service: 12/19/18 Time of Service: 11:51 Assessment and Plan (1) Epigastric abdominal pain: Current visit: Yes Status: Acute Reminiscent of previous episodes of pancreatitis. His lipase is up slightly again today from admission at 418, still not markedly elevated. He continues to have diffuse abdominal pain, greater in the epigastric region and to the left. CT scan shows mild fat hazy density in the region of the pancreatic head, raising the possibility of pancreatitis. He is tolerating clear liquids. Advance diet to regular as tolerated for his evening meal. His renal function has improved. Discontinue IV fluids. Continue pain control and antiemetics. (2) Prerenal azotemia: Current visit: Yes Status: Acute Renal function improved with IV fluids. Discontinue IV fluids. Resume oral lasix. Continue to follow renal function. (3) Cardiomyopathy, alcoholic: Current visit: No Status: Chronic With LVEF of 30-35% on most recent echo (11/25/18). Does not appear to be in acute CHF exacerbation. Weight is up today, was dehydrated on admission. IV fluids discontinued, Lasix resumed as above. Continue to monitor fluid status closely. (4) Hypertriglyceridemia: Current visit: No Status: Chronic Triglycerides elevated at 487, has been >2600 in the past. Continue Atorvastatin and fenofibrate. (5) Diabetes mellitus type 2 in obese: Current visit: No Status: Chronic Blood glucose has been well controlled, 125 on morning labs today. Continue basal insulin at 1/2 usual dose. Increase basal insulin as his diet increases. Continue short acting insulin per sliding scale. Continue to follow blood glucose before meals. Continue ADA diet. (6) Essential hypertension: Current visit: No Status: Chronic Appropriate blood pressure, 113/75 this morning. Continue to hold spironolactone and lisinopril. Resume lasix as above. (7) DVT prophylaxis: Current visit: No Status: Acute Subcutaneous Lovenox. Mr. Henning was scheduled for pacer change today at [facility]. He has been in contact with [facility] and has asked that we contact electrophysiology for consideration for transfer. Contact has been made to the transfer center. Awaiting [facility] transfer center response. This case was discussed with Dr. Sheldon who is in agreement. Subjective Interval history since last seen: Mr. Henning is tolerating a clear liquid diet. He continues to have abdominal discomfort, less than yesterday. He is concerned that carbonated beverages are causing increased abdominal pain, he is planning to avoid carbonation. He is not nauseated or vomiting. He is interested in advancing to a regular diet as tolerated for his evening meal. He denies dizziness, shortness of breath, coughing, wheezing, vomiting or diarrhea. He believes his hands are slightly edematous. He is voiding without difficulty. His CT abdomen showed skin thickening with hazy density stranding of the subcutaneous fat over the anterior right side of the abdomen which may be seen in cellulitis without evidence of an abscess. He denies any skin rash or lesion to his abdomen. Exam Narrative Exam Narrative: General: He is a pleasant and cooperative, overweight man, appears stated age. He is in no acute distress. HEENT: Normocephalic, atraumatic. Pupils are equal and round. EOMs intact. He is edentulous, Mucous membranes moist. Neck: Supple without JVD. Respiratory: Respirations are even and unlabored, lung sounds are clear to auscultation throughout. Cardiovascular: Heart has a regular rate and rhythm, non-tachycardic. Soft systolic murmur noted at the LSB, 08/27. GI: Large, round abdomen, soft, mildly distended, diffuse tenderness on palpation, greater in epigastric region and to left abdomen. Hypoactive bowel sounds throughout. Approximately quarter-size area of warmth, slight erythema below umbilicus, slightly to the right. Extremities: Well perfused without clubbing or cyanosis. Trace edema to bilateral hands. No significant lower extremity edema. Peripheral pulses palpable. Skin: No rash or lesion noted. Objective Objective Clinical Data: Abnormal lab results 12/19/18 12/19/18 Range/Units 06:43 06:43 WBC 11.41 H (4.4-10.8) k/cumm RBC 3.70 L (4.50-6.00) m/cumm Hgb 11.8 L (13.5-17.5) g/dL Hct 37.5 L (40.0-50.0) % MCV 101.4 H (80-95) fL MCHC 31.5 L (32.0-36.0) g/dL RDW 14.7 H (11.8-14.1) % MPV 11.5 H (8.0-11.0) fL Absolute Neutrophils 7.05 H (1.2-6.7) k/cumm Absolute Monocytes 0.96 H (0.11-0.7) k/cumm Glucose 125 H (70-100) mg/dL Calcium 8.1 L (8.5-10.1) mg/dL Lipase 418 H (73-393) U/L Vital Signs Temperature 36.5 C 12/19/18 07:10 Temperature Source Tympanic 12/19/18 07:10 Pulse 63 12/19/18 07:10 Pulse Rhythm Regular 12/19/18 08:06 Respiratory Rate 18 12/19/18 07:10 Respiratory Effort Non-Labored 12/19/18 08:06 Respiratory Depth Normal 12/19/18 08:06 Respiratory Pattern Normal 12/19/18 08:06 Blood Pressure 113/75 12/19/18 07:10 Blood Pressure Mean 79 12/17/18 20:00 Blood Pressure Position Sitting 12/17/18 14:31 Pulse Oximetry 97 12/19/18 09:11 Oxygen Delivery Method Room Air 12/19/18 09:11 Oxygen Flow Rate 0 12/19/18 09:11 Fraction of Inspired Oxygen (FIO2) 93 12/18/18 09:11 Pain Level 0 12/19/18 07:10 Intake & Output 12/18/18 12/18/18 12/19/18 11:59 23:59 11:59 Intake Total 2703.333 / 3678.333 975 / 3678.333 1760.000 / 1760.000 Balance 2703.333 / 3678.333 975 / 3678.333 1760.000 / 1760.000 Weight 116.4 kg 118.4 kg Intake: IV 1983.333 / 2958.333 975 / 2958.333 1000.000 / 1000.000 Oral 720 / 720 760 / 760 Other: Urine Color Pale Urine Appearance Clear Clear Urine Odor None Comment pt voids independently in the tiolet Pt voiding ad verónica in toilet; no hat. Denies sx. Voiding Methods Toilet Toilet Laboratory Results WBC 11.41 k/cumm (4.4-10.8) H 12/19/18 06:43 RBC 3.70 m/cumm (4.50-6.00) L 12/19/18 06:43 Hgb 11.8 g/dL (13.5-17.5) L 12/19/18 06:43 Hct 37.5 % (40.0-50.0) L 12/19/18 06:43 MCV 101.4 fL (80-95) H 12/19/18 06:43 MCH 31.9 pg (27.0-33.0) 12/19/18 06:43 MCHC 31.5 g/dL (32.0-36.0) L 12/19/18 06:43 RDW 14.7 % (11.8-14.1) H 12/19/18 06:43 Plt Count 273 x1000/uL (130-400) 12/19/18 06:43 MPV 11.5 fL (8.0-11.0) H 12/19/18 06:43 Immature Gran % 0.3 12/19/18 06:43 Neutrophils % 61.8 12/19/18 06:43 Lymphocytes % 27.4 12/19/18 06:43 Monocytes % 8.4 12/19/18 06:43 Eosinophils % 1.9 12/19/18 06:43 Basophils % 0.2 12/19/18 06:43 Absolute Neutrophils 7.05 k/cumm (1.2-6.7) H 12/19/18 06:43 Absolute Lymphocytes 3.13 k/cumm (1.2-3.4) 12/19/18 06:43 Absolute Monocytes 0.96 k/cumm (0.11-0.7) H 12/19/18 06:43 Absolute Eosinophils 0.22 k/cumm (0.0-0.7) 12/19/18 06:43 Absolute Basophils 0.02 k/cumm (0.0-0.2) 12/19/18 06:43 Sodium 138 mmol/L (136-145) 12/19/18 06:43 Potassium 3.7 mmol/L (3.5-5.1) 12/19/18 06:43 Chloride 107 mmol/L (98-107) 12/19/18 06:43 Carbon Dioxide 24.4 mmol/L (21.0-32.0) 12/19/18 06:43 Anion Gap 6.6 mmol/L (3-11) 12/19/18 06:43 BUN 13 mg/dL (7-18) D 12/19/18 06:43 Creatinine 1.09 mg/dL (0.70-1.30) 12/19/18 06:43 Estimated GFR/1.73 m2 >= 60.00 (mL/min/1.73m2) 12/19/18 06:43 Glucose 125 mg/dL (70-100) H 12/19/18 06:43 Calcium 8.1 mg/dL (8.5-10.1) L 12/19/18 06:43 Magnesium 2.0 mg/dL (1.8-2.4) 12/19/18 06:43 Total Bilirubin 0.4 mg/dL (0.2-1.0) 12/18/18 06:10 GGT 40 U/L (15-85) 12/17/18 15:07 AST 17 U/L (15-37) 12/18/18 06:10 ALT 18 U/L (12-78) 12/18/18 06:10 Alkaline Phosphatase 41 U/L (46-116) L 12/18/18 06:10 Troponin I < 0.02 ng/mL (0.00-0.06) 12/17/18 15:07 Total Protein 6.4 g/dL (6.4-8.2) 12/18/18 06:10 Albumin 2.9 g/dL (3.4-5.0) L 12/18/18 06:10 Triglycerides 487 mg/dL (30-150) H 12/18/18 06:10 Total Cholesterol 157 mg/dL (50-200) 12/18/18 06:10 LDL Cholesterol Direct 79 mg/dL (<100) 12/18/18 06:10 HDL Cholesterol 20 mg/dL (40-60) L 12/18/18 06:10 Amylase 30 U/L (25-115) 12/17/18 15:07 Lipase 418 U/L (73-393) H 12/19/18 06:43 Urine Color Yellow (Yellow) 12/17/18 17:10 Urine Clarity Clear 12/17/18 17:10 Urine pH 5.0 (5-8) 12/17/18 17:10 Ur Specific [place] 1.020 (1.005-1.025) 12/17/18 17:10 Urine Protein Negative mg/dL (Negative) 12/17/18 17:10 Urine Ketones Negative mg/dL (Negative) 12/17/18 17:10 Urine Blood Negative (Negative) 12/17/18 17:10 Urine Nitrite Negative (Negative) 12/17/18 17:10 Urine Bilirubin Negative (Negative) 12/17/18 17:10 Urine Urobilinogen 0.2 EU/dL (Up TO 0.2) 12/17/18 17:10 Ur Leukocyte Esterase Negative (Negative) 12/17/18 17:10 Urine Glucose Negative mg/dL (Negative) 12/17/18 17:10 Urine Opiates Screen Positive (Negative) 12/17/18 17:10 Urine Methadone Screen Negative (Negative) 12/17/18 17:10 Ur Barbiturates Screen Negative (Negative) 12/17/18 17:10 Ur Tricyclics Screen Negative (Negative) 12/17/18 17:10 Ur Amphetamines Screen Negative (Negative) 12/17/18 17:10 U Benzodiazepines Scrn Negative (Negative) 12/17/18 17:10 Urine Cocaine Screen Negative (Negative) 12/17/18 17:10 Ur THC Screen Negative (Negative) 12/17/18 17:10
--- NOTE | 2018-12-19 11:54 | PDOC.CMPRO ---
- If Service Date Differs Date of service: 12/19/18 Time of Service: 11:54 Care Management Progress Note S/O:Sonny was sitting up in bed when CM came in to visit. He was about to eat his breakfast of clear liquids. He stated he had eaten a clear liquid supper and tolerated it well but woke up at 3 a.m. with increased abdominal pain. He states he hopes he can tolerate the clear liquid meal so that his diet can be advanced and he can be discharged soon. A:oSnny is a 63 year old man admitted to [facility] on 12/17/18 with abdominal pain and chronic pancreatitis P:Sonny is receiving pain medication and is slowly advancing his diet. He will likely be discharged home with no services when ready. CM will continue to support patient, family and discharge plan of care.
--- NOTE | 2018-12-19 12:10 | CMPROGNOTE_ITS ---
- If Service Date Differs Date of service: 12/19/18 Time of Service: 11:54 Care Management Progress Note S/O:Sonny was sitting up in bed when CM came in to visit. He was about to eat his breakfast of clear liquids. He stated he had eaten a clear liquid supper and tolerated it well but woke up at 3 a.m. with increased abdominal pain. He states he hopes he can tolerate the clear liquid meal so that his diet can be advanced and he can be discharged soon. A:Sonny is a 63 year old man admitted to [facility] on 12/17/18 with abdominal pain and chronic pancreatitis P:Sonny is receiving pain medication and is slowly advancing his diet. He will likely be discharged home with no services when ready. CM will continue to support patient, family and discharge plan of care.
[2018-12-19] MEDS: Furosemide 20 MG TAB PO (12:16)
[2018-12-19] MEDS: Insulin Aspart 300 UNITS/3 ML PEN SC ×2 (12:16→17:39)
[2018-12-19 15:35] VITALS: BP 109/74; PULSE 73; RESP 18; TEMP 37.8; O2SAT 95
[2018-12-19 16:07] VITALS: TEMP 37.3
[2018-12-19] MEDS: Acetaminophen 325 MG TAB 650 MG PO (20:00)
[2018-12-19] MEDS: Enoxaparin 40 MG/0.4 ML SYR SC (20:01)
[2018-12-19] MEDS: Atorvastatin 40 MG TAB PO (20:01)
[2018-12-19] MEDS: Pantoprazole 40 MG VIAL IVP (20:01)
[2018-12-19 20:13] VITALS: BP 128/71; PULSE 75; RESP 18; TEMP 36.9; O2SAT 93
[2018-12-20 07:11] VITALS: BP 131/75; PULSE 72; RESP 18; TEMP 36.5; O2SAT 96
[2018-12-20 07:12] LABS: Abs Immature Grans 0.02 k/cumm (0.0-0.09); Absolute Basophil Count 0.02 k/cumm (0.0-0.2); Absolute Eosinophil Count 0.27 k/cumm (0.0-0.7); Absolute Lymphocyte Count 3.04 k/cumm (1.2-3.4); Absolute Monocyte Count 1.02 k/cumm (0.11-0.7); Absolute Neutrophil Count 6.45 k/cumm (1.2-6.7); Basophils % 0.2; Eosinophils % 2.5; HCT 39.8 % (40.0-50.0); Immature Grans % 0.2; Lymphocytes % 28.1; Mean Corp. HGB Concentration 32.7 g/dL (32.0-36.0); Mean Corpuscular Hemoglobin 32.2 pg (27.0-33.0); Mean Corpuscular Volume 98.5 fL (80-95); Mean Platelet Volume 11.6 fL (8.0-11.0); Monocytes % 9.4; Neutrophils % 59.6; Platelet Count 312 x1000/uL (130-400); RBC 4.04 m/cumm (4.50-6.00); RBC Distribution Width 14.3 % (11.8-14.1); White Blood Cell Count 10.82 k/cumm (4.4-10.8)
[2018-12-20 07:23] LABS: Anion Gap 8.6 mmol/L (3-11); BUN 13 mg/dL (7-18); CO2 27.4 mmol/L (21.0-32.0); CREATININE 1.25 mg/dL (0.70-1.30); Calcium 9.5 mg/dL (8.5-10.1); Chloride 103 mmol/L (98-107); Estimated GFR 57.97 (mL/min/1.73m2); Glucose 138 mg/dL (70-100); Lipase 184 U/L (73-393); Magnesium 2.1 mg/dL (1.8-2.4); Potassium 3.8 mmol/L (3.5-5.1); Sodium 139 mmol/L (136-145)
[2018-12-20] MEDS: Carvedilol 12.5 MG TAB PO (07:59)
[2018-12-20] MEDS: Magnesium Oxide 400 MG TAB PO (07:59)
[2018-12-20] MEDS: Furosemide 20 MG TAB PO (07:59)
--- NOTE | 2018-12-20 10:23 | DSE_ITS ---
Date of service: 12/20/18 Time of Service: 10:18 DS: Diagnosis Discharge Diagnosis (1) Epigastric abdominal pain: Status: Acute (2) Prerenal azotemia: Status: Acute (3) Cardiomyopathy, alcoholic: Status: Chronic (4) Hypertriglyceridemia: Status: Chronic (5) Diabetes mellitus type 2 in obese: Status: Chronic (6) Essential hypertension: Status: Chronic (7) DVT prophylaxis: Status: Acute Discharge Plan Disposition Patient Disposition: HOME Condition: Good Discharge Details Reason For Visit: ABDOMINAL PAIN, CHRONIC PANCREATITIS Admit Date/Time: 12/17/18 18:13 Admit Provider: Kalyan Bauer Attending Provider: Kalyan Bauer Primary Care Provider: Dwain Mercado Hospital Course Hospital Course: 63 yr old male w/ PMH of chronic pancreatitis x 2 yrs, type 2 DM on insulin, HTN, HLD (hypertriglyceridemia), non-ischemic CM (s/p AICD), alcohol abuse (currently in remission) who presents w/ acute abdominal pain that began around 9 a.m. 12/17/2018 and subsequently developed vomiting around 10 am. Emesis consisted of his breakfast but no hematemesis. He had a normal BM this morning. No melena nor hematochezia. Evaluation in the ER included labs (CBC, CMP, lipase, UA, UDS) and CT of abdomen and pelvis w/ contrast. Labs were remarkable for CBC w/ WBC 11.300, elevated BUN 25, creatinine 1.38, normal LFT and normal amylase and lipase. However, CT of abdomen and pelvis demonstrated mild haziness of the fat surrounding the pancreatic head. He was treated in the ER w/ iv fluids, zofran and dilaudid. He is now admitted for treatment of abdominal pain, chronic pancreatitis. He reports that he was scheduled for biventricular pacer placement and replacement of his AICD this Saturday at [facility]. During his course he received gentle IV hydration given EF 30-35%. He was able to tolerate a regular diet today without nausea, vomiting or pain. He should continue to follow a bland diet for a couple of days. Follow up with Primary in 1-2 weeks. (1) Epigastric abdominal pain: Reminiscent of previous episodes of pancreatitis. His lipase is 184 today. He denies pain, tolerating regular diet. No nausea, vomiting, diarrhea. His renal function has improved. (2) Prerenal azotemia: Renal function improved with IV fluids. Discontinue IV fluids. Resume oral lasix. Continue to follow renal function. (3) Cardiomyopathy, alcoholic: With LVEF of 30-35% on most recent echo (11/25/18). Does not appear to be in acute CHF exacerbation. Weight is up, was dehydrated on admission. IV fluids discontinued, Lasix resumed as above. Continue to monitor fluid status closely. (4) Hypertriglyceridemia: Triglycerides elevated at 487, has been >2600 in the past. Continue Atorvastatin and fenofibrate. (5) Diabetes mellitus type 2 in obese: Blood glucose has been well controlled, 125 on morning labs today. Continue basal insulin at 1/2 usual dose. Increase basal insulin as his diet increases. Continue short acting insulin per sliding scale. Continue to follow blood glucose before meals. Continue ADA diet. (6) Essential hypertension: Resume lasix as above. (7) DVT prophylaxis: Subcutaneous Lovenox. Home Meds and New Rx's Prescriptions: Continued lisinopril 10 MG tablet 2.5 mg PO DAILY Qty: 30 RF: 11 carvedilol 25 MG tablet 12.5 mg PO BID Qty: 60 RF: 11 ranitidine HCl 150 MG capsule 300 mg PO DAILY RF: 0 furosemide 20 MG tablet 20 mg PO DAILY RF: 0 multivitamin [Multiple Vitamins] 1 TAB tablet 1 tab PO DAILY Qty: 30 RF: 0 magnesium oxide 400 MG tablet 400 mg PO DAILY Qty: 30 RF: 0 Creon 1 EACH capsule,delayed release(DR/EC) 2 ea PO BID RF: 0 spironolactone 25 mg Tablet 25 mg PO DAILY RF: 0 atorvastatin [Lipitor] 40 mg Tablet 40 mg PO HS Qty: 30 RF: 0 Humalog KwikPen Insulin 100 UNIT/ML insulin pen 33 unit SQ DAILY RF: 0 Levemir FlexTouch U-100 Insuln 100 UNIT/ML insulin pen 60 units SQ QPM RF: 0 Levemir FlexTouch U-100 Insuln 100 UNIT/ML insulin pen 60 units SQ QAM RF: 0 fenofibrate 160 MG tablet 160 mg PO DAILY Qty: 30 RF: 0 Discharge Instructions Instructions: Heart Failure (GEN), Pancreatitis (GEN) Additional Instructions: Follow up with your primary in 1-2 weeks. Eat a bland diet for a couple of days. Seek medical attention immediately if you have shortness of breath, chest pain, leg swelling, fevers of worsening abdominal pain. Activity:: Activity as Tolerated Equipment/Supplies:: No Equipment Needed Diet:: Carb Counting Discharge Orders Discharge Orders: Discharge Order (Routine); Ordered 12/20/18 Ordered By: Natalee Mo Exam Narrative Exam Narrative: General: He is a pleasant and cooperative, overweight man, appears stated age. He is in no acute distress. HEENT: Normocephalic, atraumatic. Pupils are equal and round. EOMs intact. He is edentulous, Mucous membranes moist. Neck: Supple without JVD. Respiratory: Respirations are even and unlabored, lung sounds are clear to auscultation throughout. Cardiovascular: Heart has a regular rate and rhythm, non-tachycardic. Soft systolic murmur noted at the LSB, 08/27. GI: Large, round abdomen, soft, no tenderness on palpation. Hypoactive bowel sounds throughout. Extremities: Well perfused without clubbing or cyanosis. Trace edema to bilateral hands. No significant lower extremity edema. Peripheral pulses palpable. Skin: No rash or lesion noted. DS: Data Vitals/I&O Vitals and I&O: Vital Signs Temperature 36.5 C 12/20/18 07:11 Temperature Source Tympanic 12/20/18 07:11 Pulse 72 12/20/18 07:11 Pulse Rhythm Regular 12/19/18 20:13 Respiratory Rate 18 12/20/18 07:11 Respiratory Effort Non-Labored 12/19/18 20:13 Respiratory Depth Normal 12/19/18 20:13 Respiratory Pattern Normal 12/19/18 20:13 Blood Pressure 131/75 12/20/18 07:11 Blood Pressure Mean 79 12/17/18 20:00 Blood Pressure Position Sitting 12/17/18 14:31 Pulse Oximetry 96 12/20/18 07:11 Oxygen Delivery Method Room Air 12/20/18 07:11 Oxygen Flow Rate 0 12/20/18 07:11 Fraction of Inspired Oxygen (FIO2) 93 12/18/18 09:11 Pain Level 0 12/19/18 07:10 Comment 12/19/18 16:07 Intake & Output 12/19/18 12/19/18 12/20/18 11:59 23:59 11:59 Intake Total 1760.000 / 2700.000 940 / 2700.000 450 / 450 Balance 1760.000 / 2700.000 940 / 2700.000 450 / 450 Weight 118.4 kg 116.2 kg Intake: IV 1000.000 / 1000.000 Oral 760 / 1700 940 / 1700 450 / 450 Other: Urine Color Yellow Urine Appearance Clear Comment Pt voiding ad verónica in toilet; no hat. Denies sx. patient states he has been voiding in toilet Voiding Methods Toilet Toilet Urinal Completed studies during hospitalization [Text1]: Exam(s) EXAM: CT Abdomen and Pelvis With Contrast EXAM DATE/TIME: 12/17/2018 3:37 PM CLINICAL HISTORY: 63 years old, male; Localized; Prior surgery; Surgery date: 6+ months; Surgery type: Gallbladder removal and spleen removal years ago. ; Patient HX: Upper abdominal pain since this morning. TECHNIQUE: Imaging protocol: Axial computed tomography images of the abdomen and pelvis with intravenous contrast. Coronal and sagittal reformatted images were created and reviewed. Radiation optimization: All CT scans at this facility use at least one of these dose optimization techniques: automated exposure control; mA and/or kV adjustment per patient size (includes targeted exams where dose is matched to clinical indication); or iterative reconstruction. Contrast material: OMNIPAQUE 350; Contrast volume: 100 ml; Contrast route: IV; COMPARISON: CT ABD PELVIS WITH CONTRAST 09/29/2017 3:41 PM FINDINGS: Lungs: Chronic atelectasis and/or scar in the right lung base. ABDOMEN: Liver: Unremarkable. No mass. Gallbladder and bile ducts: Status post cholecystectomy. Pancreas: Minimal hazy density within the fat surrounding the pancreatic head, less prominent than that seen on the prior examination. Correlate with possible pancreatitis. No pancreatic duct dilatation. Spleen: Status post splenectomy with splenule, unchanged. Adrenals: Normal. No mass. Kidneys and ureters: Unremarkable. No stones. No hydronephrosis. Stomach and bowel: Colonic diverticulosis without diverticulitis. No enteritis or bowel obstruction. The stomach is unremarkable. Appendix: No evidence of appendicitis. PELVIS: Bladder: Unremarkable as visualized. Reproductive: Unremarkable as visualized. ABDOMEN and PELVIS: Intraperitoneal space: Unremarkable. No free air. No significant fluid collection. Bones/joints: No acute fracture. Soft tissues: Metallic fragments within the right lower posterior chest wall, unchanged. Mild skin thickening as well as hazy density and stranding of the subcutaneous fat of the anterior and right side of the abdomen. The findings are nonspecific and may be seen with cellulitis. No abscess. Vasculature: Mild atherosclerosis of the abdominal aorta. No aneurysm. Lymph nodes: Unremarkable. No enlarged lymph nodes. IMPRESSION: 1. Mild hazy density in the fat surrounding the pancreatic head. Correlate with possible pancreatitis. 2. Skin thickening with hazy density and stranding of the subcutaneous fat of the anterior and right side of the abdomen, which may be seen with cellulitis. Labs on day of discharge: Labs from last 24 hours 12/20/18 12/20/18 06:30 06:30 WBC 10.82 H RBC 4.04 L Hgb 13.0 L Hct 39.8 L MCV 98.5 H MCH 32.2 MCHC 32.7 RDW 14.3 H Plt Count 312 MPV 11.6 H Immature Gran % 0.2 Neutrophils % 59.6 Lymphocytes % 28.1 Monocytes % 9.4 Eosinophils % 2.5 Basophils % 0.2 Absolute Neutrophils 6.45 Absolute Lymphocytes 3.04 Absolute Monocytes 1.02 H Absolute Eosinophils 0.27 Absolute Basophils 0.02 Sodium 139 Potassium 3.8 Chloride 103 Carbon Dioxide 27.4 Anion Gap 8.6 BUN 13 Creatinine 1.25 Estimated GFR/1.73 m2 57.97 Glucose 138 H Calcium 9.5 Magnesium 2.1 Lipase 184 [facility] Medical History CHF (congestive heart failure) (Chronic) Insulin dependent diabetes mellitus (Chronic) Pancreatitis (Chronic) Hypertriglyceridemia (Chronic) Cardiomyopathy, alcoholic (Chronic) Recurrent acute pancreatitis (Acute) Alcohol dependence, in remission (Chronic) Diabetes mellitus type 2 in obese (Chronic) LBBB (left bundle branch block) (Chronic) CHF (congestive heart failure) (Chronic) Essential hypertension (Chronic) Pancreatic pseudocyst (Chronic) Lung nodule (Chronic) EKG abnormalities (Chronic) Surgical History History of implantable cardioverter-defibrillator (ICD) placement (Resolved) History of tonsillectomy (Resolved) Cholecystectomy Colonoscopy - IV Sedation (06/20/16) Splenomegaly Social History Smoking/Tobacco Use Status: Never Alcohol Intake: former Drug use: Never Substance use type: does not use Details: quit 2016 Do you feel safe at home: Yes Do you feel safe in your relationship?: Yes
--- NOTE | 2018-12-20 13:08 | PDOC.CMDIS ---
LACE Index Scoring Tool - Questions: Length of Stay (in days): 3 Acuity (Admit via E.D.?): Yes Comorbidities: Diabetes w/o Complication, Congestive Heart Failure, Liver or Renal Disease E.D. Visits: 4 - Answers: Total Score: 15 Risk of Readmission: High Risk Care Management Discharge Reason for Hospitalization: Epigastric Abdominal Pain Discharge Plan: Sonny with return home with no additional services at this time, per MD his insulin regimin was adjusted prior to discharge and will remain when Sonny returns home. He will follow up with his PCP and plan of care. He will transport via private vehicle with his , Stephanie. Patient/Family Education Needs: Review discharge instructions, discuss Ask Me Three.
== END 2018-12-20 11:35 | disposition home or self-care (01) | DRG 392 ==
LOC: ER 19:56 → MS 20:15
PROVIDERS: Nurse Practitioner Family; Admitting Provider Internal Medicine; Emergency Provider Physician Assistant; PCP Specialist/Technologist Athletic Trainer; Visit Provider Internal Medicine
DX: R10.13 Epigastric pain (principal); N17.9 Acute kidney failure, unspecified; I42.6 Alcoholic cardiomyopathy; K86.1 Other chronic pancreatitis; E78.1 Pure hyperglyceridemia; E11.9 Type 2 diabetes mellitus without complications; E66.9 Obesity, unspecified; I10 Essential (primary) hypertension; F10.21 Alcohol dependence, in remission; Z95.810 Presence of automatic (implantable) cardiac defibrillator; Z79.4 Long term (current) use of insulin
CPT/HCPCS: 36415; 80048; 80053; 80061; 80307; 83690; 83721; 96361; 96372; 96374; 99223; 99232; 99239; 99285; J1650; 74177; 81003; 82150; 82977; 83735; 84484; 85025; 99284; J2405; J3490

== ENCOUNTER 2019-09-13 18:11 | Emergency (ER) | payer MEDICARE, OTHER, SELFPAY ==
[2019-09-13 18:19] VITALS: BP 121/65; PULSE 88; RESP 16; TEMP 36; O2SAT 96
--- NOTE | 2019-09-13 18:37 | W.ED.GENAD ---
Discharge Plan Disposition Patient Disposition: [facility] Condition: Stable Discharge Details Chief Complaint: Abd Prob Clinical Impression: Acute appendicitis Primary Care Provider: Dwain Mercado ED Provider: Reg Trevizo Home Meds and New Rx's Prescriptions: No Action lisinopril 10 MG tablet 2.5 mg PO DAILY Qty: 30 RF: 11 carvedilol 25 MG tablet 12.5 mg PO BID Qty: 60 RF: 11 ranitidine HCl 150 MG capsule 300 mg PO DAILY RF: 0 furosemide 20 MG tablet 20 mg PO DAILY RF: 0 multivitamin [Multiple Vitamins] 1 TAB tablet 1 tab PO DAILY Qty: 30 RF: 0 magnesium oxide 400 MG tablet 400 mg PO DAILY Qty: 30 RF: 0 Creon 1 EACH capsule,delayed release(DR/EC) 1 ea PO BID RF: 0 spironolactone 25 mg Tablet 25 mg PO DAILY RF: 0 atorvastatin [Lipitor] 40 mg Tablet 40 mg PO HS Qty: 30 RF: 0 insulin lispro [Humalog KwikPen Insulin] 100 UNIT/ML insulin pen SQ DAILY RF: 0 Levemir FlexTouch U-100 Insuln 100 UNIT/ML insulin pen 75 units SQ QPM RF: 0 Levemir FlexTouch U-100 Insuln 100 UNIT/ML insulin pen 75 units SQ QAM RF: 0 fenofibrate 160 MG tablet 160 mg PO DAILY Qty: 30 RF: 0 Medical Decision Making <Clarence Rosales MD - Last Filed: 09/13/19 19:16> 64-year-old male presents from home. He states that approximately 2 AM this morning he developed right lower quadrant abdominal pain that is been persistent, worse with movement. He is afebrile with unremarkable vital signs and on exam he is tender in the right lower quadrant of the abdomen with mild rebound present. Differential diagnosis would include appendicitis, diverticulitis, colitis. Patient had IV access established, given fluid bolus, antiemetic, analgesic, referred for laboratory testing and urinalysis, as well as CT images. White blood cell count is elevated to 20 with hematocrit 46, platelets 439. Chemistries with sodium 140, potassium 3.6, chloride 102, BUN 16, creatinine 1.48 with a GFR of 47. Lactic acid is 1.2. LFTs unremarkable. <Reg Trevizo MD - Last Filed: 09/13/19 21:41> pt's ct confirms appendicitis, remains hd stable. I spoke with Dr. Pressley from general surgery who reviewed the case with supervisor tank storage and given his history and last echo in 11/2018 with EF of 30-35% they do not feel they can safely operate on him here. Will consult with surgery at [facility] [place]. spoke with Dr. Montes from general surgery at [facility] who accepts the patient in transfer. Pt remains stable, updated on plan and questions answered. Medical Records Medical records reviewed: Yes I reviewed the patient's medical records. Imaging Data Radiologic Study: Attestation: I personally reviewed and interpreted this imaging study as follows: Imaging: CT Scan Radiologist's impression: appendicitis Lab Data Lab results reviewed: Yes I reviewed the patient's lab results. HPI <Clarence Rosales MD - Last Filed: 09/13/19 19:16> General Mode of arrival: ambulatory. Date/Time Provider Initiated Documentation: 09/13/19 18:20. Limitations to Documentation: no limitations. Information obtained by: patient and family. History of Present Illness 64 year old M presents to the emergency department with the chief complaint of Right lower quadrant pain beginning at 0200, described as moderate, Quality is described as dull, and is localized to the abdomen. Patient proximal. Patient started experiencing this hour(s) and it has been constant. Rest improves symptom(s), Movement worsens symptoms . Patient notes loss of appetite and other (Nauseated. States he had loose stool 2 days earlier). Patient did receive the following treatments prior to arrival, none Related Data Home Medications Medication Instructions Recorded Confirmed multivitamin [Multiple Vitamins] 1 tab PO DAILY #30 tab 01/28/16 09/13/19 lisinopril 2.5 mg PO DAILY #30 tab-cap 09/05/16 09/13/19 magnesium oxide 400 mg PO DAILY #30 tab 01/20/17 09/13/19 carvedilol 12.5 mg PO BID #60 tab-cap 03/20/17 09/13/19 Creon 1 ea PO BID 05/07/17 09/13/19 Levemir FlexTouch U-100 Insuln 75 units SQ QAM 06/13/17 09/13/19 Levemir FlexTouch U-100 Insuln 75 units SQ QPM 06/13/17 09/13/19 insulin lispro [Humalog KwikPen unit SQ DAILY 06/13/17 12/17/18 Insulin] fenofibrate 160 mg PO DAILY #30 tablet 10/02/17 09/13/19 furosemide 20 mg PO DAILY tab-cap 12/04/17 09/13/19 ranitidine HCl 300 mg PO DAILY tab-cap 12/04/17 09/13/19 spironolactone 25 mg PO DAILY 05/14/18 09/13/19 atorvastatin [Lipitor] 40 mg PO HS #30 tab 06/24/18 09/13/19 Previous Rx's Medication Instructions Recorded multivitamin [Multiple Vitamins] 1 tab PO DAILY #30 tab 01/28/16 magnesium oxide 400 mg PO DAILY #30 tab 01/20/17 fenofibrate 160 mg PO DAILY #30 tablet 10/02/17 atorvastatin [Lipitor] 40 mg PO HS #30 tab 06/24/18 Allergies Allergy/AdvReac Type Severity Reaction Status Date / Time No Known Allergies Allergy Unverified 09/13/19 18:23 General Stated Complaint: Abd Prob KOLBY: 3 Review of Systems <Clarence Rosales MD - Last Filed: 09/13/19 19:16> Narrative: States he had some nausea and loose stool earlier in the week, seemed to improve yesterday and before the pain started today. No note of a fever, no travel. Denies chest pain or cough. 8 systems reviewed and otherwise negative. PFSH <Clarence Rosales MD - Last Filed: 09/13/19 19:16> Medical History Alcohol dependence, in remission (Chronic) Cardiomyopathy, alcoholic (Chronic) CHF (congestive heart failure) (Chronic) CHF (congestive heart failure) (Chronic) Diabetes mellitus type 2 in obese (Chronic) EKG abnormalities (Chronic) Essential hypertension (Chronic) Hypertriglyceridemia (Chronic) Insulin dependent diabetes mellitus (Chronic) LBBB (left bundle branch block) (Chronic) Lung nodule (Chronic) Pancreatic pseudocyst (Chronic) Pancreatitis (Chronic) Recurrent acute pancreatitis (Acute) Social History Smoking/Tobacco Use Status: Never Alcohol Intake: former Drug use: Never Substance use type: does not use Details: quit 2015 Do you feel safe at home: Yes Do you feel safe in your relationship?: Yes Exam <Clarence Rosales MD - Last Filed: 09/13/19 19:16> Narrative Exam Narrative: GEN: awake, alert, oriented 3. Pleasant, well groomed, interactive. HEAD: Normocephalic, atraumatic ENT: Mucous membranes moist, oropharynx unremarkable, External ear exam unremarkable EYES: PERRL, EOMI NECK: Full ROM, no [place], no menigismus CHEST/RESP: Nontender, clear to auscultation bilateral, no wheeze/rhonchi/rales CARDIOVASCULAR: RRR, question soft blowing murmur best at upper sternal border. 2+ Rad pulse bilateral ABDOMEN: Soft, decreased bowel sounds, tender on the right lower abdomen with mild rebound present. EXT: Full ROM, no edema, no rash Neuro: Grossly normal neurologic exam, conversant, interactive. Psych: Speech fluent, thoughts congruent, affect normal Course <Clarence Rosales MD - Last Filed: 09/13/19 19:16> Vital Signs Vital signs: Vital Signs Temperature 36 C L 09/13/19 18:19 Pulse 88 09/13/19 18:19 Respiratory Rate 16 09/13/19 18:19 Blood Pressure 121/65 09/13/19 18:19 Pulse Oximetry 96 09/13/19 18:19 Temperature 36 C L 09/13/19 18:19 Temperature Source Skin 09/13/19 18:19 Pulse 88 09/13/19 18:19 Respiratory Rate 16 09/13/19 18:19 Respiratory Effort Non-Labored 09/13/19 18:19 Blood Pressure 121/65 09/13/19 18:19 Blood Pressure Position Sitting 09/13/19 18:19 Pulse Oximetry 96 09/13/19 18:19 Oxygen Delivery Method Room Air 09/13/19 18:19 Oxygen Flow Rate 0 09/13/19 18:19 Pain Level 10 09/13/19 18:19 Sign Out <Clarence Rosales MD - Last Filed: 09/13/19 19:16> Sign Out Data: Sign Out Comment: Followup CT scan, further disposition Last updated by Clarence Rosales MD at 09/13/19 19:40
[2019-09-13] MEDS: Normal Saline 1,000 ML 125 ML IV (18:53)
[2019-09-13 18:55] LABS: Lactate 1.2 mmol/L (0.6-1.4)
[2019-09-13 18:56] LABS: HCT 46.8 % (40.0-50.0); HGB 15.6 g/dL (13.5-17.5); Mean Corp. HGB Concentration 33.3 g/dL (32.0-36.0); Mean Corpuscular Hemoglobin 31.4 pg (27.0-33.0); Mean Corpuscular Volume 94.2 fL (80-95); Mean Platelet Volume 11.2 fL (8.0-11.0); Platelet Count 439 x1000/uL (130-400); RBC 4.97 m/cumm (4.50-6.00); White Blood Cell Count 20.34 k/cumm (4.4-10.8)
[2019-09-13] MEDS: Ondansetron 4 MG/2 ML VIAL IVP (18:58)
[2019-09-13 18:59] VITALS: BP 118/59; PULSE 79; RESP 16; O2SAT 94
[2019-09-13 19:13] LABS: ALT 21 U/L (16-63); AST 20 U/L (15-37); Albumin 3.6 g/dL (3.4-5.0); Alkaline Phosphatase 57 U/L (46-116); BUN 16 mg/dL (7-18); Bilirubin, Total 0.5 mg/dL (0.2-1.0); CREATININE 1.48 mg/dL (0.70-1.30); Calcium 9.2 mg/dL (8.5-10.1); Chloride 102 mmol/L (98-107); Estimated GFR 47.55 (mL/min/1.73m2); Glucose 119 mg/dL (74-106); Lipase 113 U/L (73-393); Potassium 3.6 mmol/L (3.5-5.1); Sodium 140 mmol/L (136-145)
--- NOTE | 2019-09-13 19:17 | NUR.NOTE ---
Assumed care of pt, report from Deena. Pt reports 12/29 sharp RLQ pain, mild nausea. Med a/o. NS infusing. Plan for CT afer labs resulted. Pt aware of plan.
[2019-09-13 19:19] LABS: Absolute Lymphocyte Count 4.47 k/cumm (1.2-3.4); Absolute Monocyte Count 1.02 k/cumm (0.11-0.7); Absolute Neutrophil Count 14.64 k/cumm (1.2-6.7); Atypical Lymphocytes % 2
[2019-09-13 19:20] LABS: Diff Comment Manual Differential; RBC Morphology Normal
--- NOTE | 2019-09-13 19:50 | DI.CT_ITS ---
EXAM: CT ABDOMEN PELVIS WO CLINICAL HISTORY: RLQ pain, elev WBC. (elev creatinine) COMPARISON: CT ABDOMEN PELVIS W from 12/17/2018 FINDINGS: CT examination of the abdomen and pelvis was performed without contrast administration. Images obtai gabbi through the lung bases show prior right lower rib resection with apparent metallic foreign bodies . There is a cardiac pacemaker in position. No gross pulmonary consolidation. Liver is unremarkable in appearance by noncontrast criteria. Prior splenectomy reported, regenerative splenic tissue noted. Pancreas is unremarkable. Prior cholecystectomy noted. No biliary dilatation . Abdominal aorta is of normal diameter. No significant abdominal wall hernia seen. No significant abdominal or pelvic adenopathy. Adrenals and kidneys are unremarkable. No urinary tract calcification or obstruction. There is marked fat edema adjacent to a dilated appendix with proximal appendicoliths, findings highl y suggestive of acute appendicitis, no evidence of perforation. No abscess formation identified. IMPRESSION: Findings highly suggestive of acute appendicitis, uncomplicated.
[2019-09-13 20:23] LABS: Bilirubin Negative (Negative); Blood Negative (Negative); Clarity Clear (Clear); Glucose Negative (Negative); Ketones Negative (Negative); Leukocyte Esterase Negative (Negative); Nitrite Negative (Negative); Specific Gravity >= 1.030 (1.005-1.025)
--- NOTE | 2019-09-13 20:28 | DI.VRAD_ITS ---
Addendum created by Danii Kim MD on 09/13/2019 8:31:04 PM EST 5:30 PM Sonny Perez pt has received the report and has no questions. Initial report created on 09/13/2019 8:28:32 PM EST PROCEDURE INFORMATION: Exam: CT Abdomen And Pelvis Without Contrast Exam date and time: 09/13/2019 7:30 PM Age: 64 years old Clinical indication: Other: Rlq pain, elevated wbc, elevated creatinine; Prior surgery; Surgery date: 6+ months TECHNIQUE: Imaging protocol: Computed tomography of the abdomen and pelvis without contrast. COMPARISON: CT ABDOMEN PELVIS W 17/12/2018 16:48 FINDINGS: Tubes, catheters and devices: Cardiac pacemaker in place. Lungs: Chronic atelectasis and pleural thickening right lower lobe posterior segment. Liver: Hepatic steatosis. Gallbladder and bile ducts: Cholecystectomy. Pancreas: Normal. No ductal dilation. 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 Adrenals: Normal. No mass. Kidneys and ureters: Normal. No hydronephrosis. Stomach and bowel: Unremarkable. No obstruction. Abnormal fold thickening of the cecum and terminal ileum in the right abdomen consistent with inflammation from the adjacent appendicitis. Appendix: Acute inflammatory process in the right mid abdomen consistent with acute appendicitis. Intraperitoneal space: There is some free fluid in the inflammatory area there is no evidence for free air. Vasculature: Atherosclerotic disease. Lymph nodes: There are some enlarged lymph nodes in the mesentery of the right lateral abdomen. Bladder: Unremarkable as visualized. Reproductive: Unremarkable as visualized. Bones/joints: Multilevel degenerative changes of the thoracic and lumbar spine. Multilevel degenerative changes of the thoracic and lumbar spine. Soft tissues: Postsurgical changes of the posterior right inferior chest wall. Atrophy of the right posterior and right lateral chest wall musculature. IMPRESSION: 1. Acute appendicitis with moderate to severe inflammatory changes. 2. Additional findings as discussed above. Dictated and Authenticated by: Danii Kim MD. Ordering:TAM Lima MD
[2019-09-13 20:59] VITALS: BP 112/65; PULSE 82; TEMP 37.5; O2SAT 98
[2019-09-13] MEDS: Normal Saline Flush 10 ML SYR IVP (21:12)
[2019-09-13] MEDS: PIPERACILLIN/TAZO 4.5 GM in Normal Saline 100 ML IVPB (21:12)
--- NOTE | 2019-09-13 21:38 | NUR.NOTE ---
[place] for [place] [facility]
--- NOTE | 2019-09-13 22:16 | NUR.NOTE ---
Sats to 88% after morphine. Drowsy, easily arousable to voice. Placed on 2L O2 NC. sats to 94%
[2019-09-13 22:46] VITALS: BP 114/62; PULSE 84; RESP 16; TEMP 37.1; O2SAT 94
--- NOTE | 2019-09-13 22:55 | NUR.NOTE ---
[place] Zo[place] [facility] belongings [place]. Transferred out via [facility] in stable condition.
== END 2019-09-13 22:50 | disposition short-term general hospital (02) ==
PROVIDERS: Emergency Medicine; Emergency Provider Emergency Medicine; PCP Specialist/Technologist Athletic Trainer
DX: R10.823 Right lower quadrant rebound abdominal tenderness (principal); R11.0 Nausea; K35.80 Unspecified acute appendicitis; I42.6 Alcoholic cardiomyopathy; F10.21 Alcohol dependence, in remission; E11.9 Type 2 diabetes mellitus without complications; Z79.4 Long term (current) use of insulin; I10 Essential (primary) hypertension
CPT/HCPCS: 36415; 80053; 83690; 96361; 96365; 96375; 96376; 99285; 74176; 81003; 83605; 83735; 85025; J2405; J2543

== ENCOUNTER → 2020-09-21 12:56 | Outpatient (BNVA) | payer OTHER, SELFPAY | PROVIDERS: PCP Family Medicine; Referring Provider Specialist/Technologist Athletic Trainer; Visit Provider Internal Medicine Cardiovascular Disease | DX: I50.9 Heart failure, unspecified (principal); Z45.018 Encounter for adjustment and management of other part of cardiac pacemaker | CPT/HCPCS: 93284 ==

== ENCOUNTER 2021-03-21 19:51 | Emergency (ER) | payer OTHER, SELFPAY ==
[2021-03-21 19:58] VITALS: BP 150/83; PULSE 78; RESP 18; TEMP 36.4; O2SAT 97
--- NOTE | 2021-03-21 20:00 | DI.CT_ITS ---
Exam(s) CT ABDOMEN PELVIS W EXAM: CT ABDOMEN PELVIS W CLINICAL HISTORY: abdomen pain TECHNIQUE: Imaging Protocol: Axial computed tomography images with coronal and sagittal reformatted images were created and reviewed CONTRAST MATERIAL: Intravenous: Omnipaque 350 Contrast volume:100 mL Oral: No COMPARISON: CT CT ABDOMEN PELVIS WO from 09/13/2019 FINDINGS: ABDOMEN: Lung Bases: Stable right basilar pleural scarring. Liver: Normal density. No measurable mass. Portal and superior Mesenteric: Unremarkable. Gallbladder and Biliary Tract: Status post cholecystectomy. No biliary ductal dilatation. Pancreas: Infiltrate is stranding is seen around the body and head of the pancreas consistent with ac [place] pancreatitis. No peripancreatic fluid collection is seen. There has been an increase in size of the pancreatic duct. There has been an increase number of calcifications within the pancreas sugges ting chronic pancreatitis. Spleen: Status post splenectomy. A splenule is again seen in the left upper quadrant. Adrenals: No masses seen. Kidneys: Normal size, contour and axis. No radiodense stones or obstructive uropathy. No masses seen. Abdominal Aorta: Abdominal portion non-dilated. Atherosclerosis. Bowel: No obstruction or bowel wall thickening. Appendix is unremarkable. Diverticulosis of the desce nding and sigmoid colon, but no evidence of acute diverticulitis. Peritoneal Cavity: No ascites, collection or mesenteric inflammatory response. No free air. Lymph Nodes: Within normal limits. Bones: Within normal limits for the patient's age. Soft Tissues: Unremarkable. PELVIS: Bladder: Symmetric distention, no gross wall thickening. Reproductive Organs: Unremarkable as visualized. Lymph Nodes: Within normal limits. Bones: Within normal limits for the patient's age. IMPRESSION: Findings consistent with acute pancreatitis superimposed on findings of chronic pancreatitis. No abs cess or other focal fluid collection. RADIATION DOSE DELIVERED: 1,166.88mGy.cm Total DLP DATA REPOSITORY: All CT scans at this facility are submitted to the National Radiology Data Registry (NRDR) Dose Index Registry (DIR) with the [employer] (ACR). RADIATION OPTIMIZATION: All CT scans at this facility use at least one of these dose optimization te chniques: automated exposure control; mA and/or kV adjustment per patient size (includes targeted exa ms where dose is matched to clinical indication); or iterative reconstruction.
--- NOTE | 2021-03-21 20:02 | W.ED.GENAD ---
Discharge Plan Disposition Patient Disposition: HOME Condition: Stable Discharge Details Clinical Impression: Abdominal pain, Chronic pancreatitis Primary Care Provider: Clarence Conley ED Provider: Reg Trevizo Home Meds and New Rx's Prescriptions: New ondansetron 4 mg tablet,disintegrating 4 mg PO Q8H PRN (Reason: nausea and vomiting) Qty: 30 RF: 0 oxycodone 5 mg tablet 5 mg PO Q6H PRNQty: 7 RF: 0 Continued lisinopril 10 MG tablet 2.5 mg PO DAILY Qty: 30 RF: 11 carvedilol 25 MG tablet 12.5 mg PO BID Qty: 60 RF: 11 ranitidine HCl 150 MG capsule 300 mg PO DAILY RF: 0 furosemide 20 MG tablet 20 mg PO DAILY RF: 0 multivitamin [Multiple Vitamins] 1 TAB tablet 1 tab PO DAILY Qty: 30 RF: 0 magnesium oxide 400 MG tablet 400 mg PO DAILY Qty: 30 RF: 0 Creon 1 EACH capsule,delayed release(DR/EC) 1 ea PO BID RF: 0 spironolactone 25 mg Tablet 25 mg PO DAILY RF: 0 atorvastatin [Lipitor] 40 mg Tablet 40 mg PO HS Qty: 30 RF: 0 insulin lispro [Humalog KwikPen Insulin] 100 UNIT/ML insulin pen SQ DAILY RF: 0 Levemir FlexTouch U-100 Insuln 100 UNIT/ML insulin pen 75 units SQ QPM RF: 0 Levemir FlexTouch U-100 Insuln 100 UNIT/ML insulin pen 75 units SQ QAM RF: 0 fenofibrate 160 MG tablet 160 mg PO DAILY Qty: 30 RF: 0 Discharge Instructions Additional Instructions: Your lipase which measures pancreas inflammation was normal you cat scan showed evidence of chronic pancreatitis drink fluids to stay hydrated follow up with your primary care provider within 1 week if you feel more ill, have fevers, persistent vomit or severe uncontrolled pain return to the emergency department if you take the oxycodone do not drive or drink alcohol take tylenol 1000mg every 6 hours and you can also take 600mg ibuprofen every 6 hours as needed and if you need to take the oxycodone Medical Decision Making 66 yr old male w/ PMH of chronic pancreatitis x 2 yrs, type 2 DM on insulin, HTN, HLD (hypertriglyceridemia), non-ischemic CM (s/p AICD),who comes in with chief complaint of abdomen pain starting earlier today similar to his prior episodes of pancreatitis and has not had alcohol in 6 years per patient. He localizes the pain to the mid and left upper abdomen. He has had n/v as well, denies fevers, chills, chest pain, dyspnea, headaches. Denies increased pain with eating. On exam he is tender with palpation to the luq and mid abdomen without distention and no other tenderness elsewhere. With his history suspect pancreatitis, will obtain labs including lipase and ct to evaluate for possible pseudocyst pt's labs show hyperglycemia with ketones in urine but no acidemia so doubt dka, suspect dehydration in setting of vomit and he has underlying DM. lipase normal and rest of labs reassuring as well. CT shows stranding of the pancreas which is consistent with acute and chronic pancreatitis. He feels improved with meds. Discussed his results and discussed trying outpatient oral pain meds vs admitting, and he would prefer to go home if possible which I feel is reasonable given hemodynamic stability and also reassuring workup other than ct showing acute/chronic pancreatitis. Will try oral oxycodone to see if he can tolerate this. patient had never received the dilaudid due to a surge when I had reevaluated him. He had significant relief with dilaudid and has 2/10 pain and mild tenderness to mid abdomen with deep palpation. He doesn't want anything for pain right now and would like to go home which I feel is reasonable given reassuring workup. Will prescribe short course of oxycodone and also zofran. Advised to f/u with pcp and return precautions given Medical Records Medical records reviewed: Yes I reviewed the patient's medical records. Imaging Data Radiologic Study: Attestation: I personally reviewed and interpreted this imaging study as follows: Imaging: CT Scan Radiologist's impression: IMPRESSION: Pancreatic findings consistent with acute and chronic changes of pancreatitis. Clinical and laboratory correlation recommended. Lab Data Lab results reviewed: Yes I reviewed the patient's lab results. HPI General Mode of arrival: ambulatory. Date/Time Provider Initiated Documentation: 03/21/21 19:58. Limitations to Documentation: no limitations. Information obtained by: patient. History of Present Illness 66 year old M presents to the emergency department with the chief complaint of abdomen pain, described as moderate and severe, with intensity rated at 9. Quality is described as sharp, and is localized to the abdomen. Patient reports no radiation. Patient started experiencing this hour(s) (7) and it has been constant. No relieving factors improve symptom(s), No exacerbating factors reported . Patient notes nausea/vomiting. Patient did receive the following treatments prior to arrival, none Related Data Home Medications Medication Instructions Recorded Confirmed multivitamin [Multiple Vitamins] 1 tab PO DAILY #30 tab 01/28/16 09/13/19 lisinopril 2.5 mg PO DAILY #30 tab-cap 09/05/16 09/13/19 magnesium oxide 400 mg PO DAILY #30 tab 01/20/17 09/13/19 carvedilol 12.5 mg PO BID #60 tab-cap 03/20/17 09/13/19 Creon 1 ea PO BID 05/07/17 09/13/19 Levemir FlexTouch U-100 Insuln 75 units SQ QAM 06/13/17 09/13/19 Levemir FlexTouch U-100 Insuln 75 units SQ QPM 06/13/17 09/13/19 insulin lispro [Humalog KwikPen unit SQ DAILY 06/13/17 12/17/18 Insulin] fenofibrate 160 mg PO DAILY #30 tablet 10/02/17 09/13/19 furosemide 20 mg PO DAILY tab-cap 12/04/17 09/13/19 ranitidine HCl 300 mg PO DAILY tab-cap 12/04/17 09/13/19 spironolactone 25 mg PO DAILY 05/14/18 09/13/19 atorvastatin [Lipitor] 40 mg PO HS #30 tab 06/24/18 09/13/19 ondansetron 4 mg PO Q8H PRN #30 tab 03/21/21 oxycodone 5 mg PO Q6H PRN #7 tab 03/21/21 Previous Rx's Medication Instructions Recorded multivitamin [Multiple Vitamins] 1 tab PO DAILY #30 tab 01/28/16 magnesium oxide 400 mg PO DAILY #30 tab 01/20/17 fenofibrate 160 mg PO DAILY #30 tablet 10/02/17 atorvastatin [Lipitor] 40 mg PO HS #30 tab 06/24/18 ondansetron 4 mg PO Q8H PRN #30 tab 03/21/21 oxycodone 5 mg PO Q6H PRN #7 tab 03/21/21 Allergies Allergy/AdvReac Type Severity Reaction Status Date / Time No Known Allergies Allergy Unverified 09/13/19 18:23 General Stated Complaint: Abd Prob KOLBY: 3 Review of Systems All systems reviewed & are unremarkable except as noted in HPI and below Constitutional Constitutional: Denies chills, Denies fever(s) and Denies weakness Cardiovascular Cardiovascular: Denies chest pain and Denies dyspnea Respiratory Respiratory: Denies cough and Denies dyspnea Neurologic Neurologic: Denies weakness Psychiatric Psychiatric: Denies depression [facility] Medical History (Updated 03/21/21 @ 22:24 by Reg Trevizo MD) Alcohol dependence, in remission Cardiomyopathy, alcoholic CHF (congestive heart failure) CHF (congestive heart failure) Diabetes mellitus type 2 in obese EKG abnormalities Essential hypertension Hypertriglyceridemia Insulin dependent diabetes mellitus LBBB (left bundle branch block) Lung nodule Pancreatic pseudocyst Pancreatitis Recurrent acute pancreatitis Surgical History Cholecystectomy Colonoscopy - IV Sedation (06/20/16) History of implantable cardioverter-defibrillator (ICD) placement History of tonsillectomy Splenomegaly Social History Smoking/Tobacco Use Status: Never Smoking risk assessment performed?: Yes Alcohol Intake: former Drug use: Never Substance use type: does not use Details: quit 2015 Do you feel safe at home: Yes Do you feel safe in your relationship?: Yes Course Vital Signs Vital signs: Vital Signs Temperature 36.4 C L 03/21/21 19:58 Pulse 78 03/21/21 19:58 Respiratory Rate 18 03/21/21 19:58 Blood Pressure 150/83 H 03/21/21 19:58 Pulse Oximetry 97 03/21/21 19:58 Temperature 36.4 C L 03/21/21 19:58 Temperature Source Temporal Artery Scan 03/21/21 19:58 Pulse 78 03/21/21 19:58 Respiratory Rate 18 03/21/21 19:58 Blood Pressure 150/83 H 03/21/21 19:58 Blood Pressure Position Sitting 03/21/21 19:58 Pulse Oximetry 97 03/21/21 19:58 Oxygen Delivery Method Room Air 03/21/21 19:58 Oxygen Flow Rate 0 03/21/21 19:58 Pain Level 6 03/21/21 19:58
[2021-03-21 20:10] LABS: Abs Immature Grans 0.06 10^3/uL (0.0-0.06); Absolute Basophil Count 0.05 10^3/uL (0.0-0.2); Absolute Monocyte Count 1.08 10^3/uL (0.1-0.8); Basophils % 0.3; Eosinophils % 0.6; HCT 42.4 % (40.0-50.0); HGB 14.2 g/dL (13.5-17.5); Immature Grans % 0.4; Lymphocytes % 25.7; MCH 32.3 pg (27.0-33.0); MCHC 33.5 % (32.0-36.0); MCV 96.4 fL (80-95); MPV 11.1 fL (8.0-11.0); Monocytes % 6.6; Neutrophils % 66.4; Nucleated RBC 0 %; Platelet Count 350 10^3/uL (130-400); RDW 13.2 % (11.8-14.1); RDW-SD 47.1 fL; WBC 16.36 10^3/uL (4.4-10.8)
[2021-03-21 20:11] LABS: Absolute Neutrophil Count 10.86 10^3/uL (1.2-6.7)
[2021-03-21 20:24] LABS: Bilirubin Negative (Negative); Blood Negative (Negative); Clarity Clear (Clear); Glucose >=1000 mg/dL (Negative); Ketones 15 mg/dL (Negative); Leukocyte Esterase Negative (Negative); Nitrite Negative (Negative); Specific Gravity 1.025 (1.005-1.025); Urobilinogen 0.2 EU/dL (Up TO 0.2); pH 5.5 (5-8)
[2021-03-21 20:27] LABS: ALT 27 U/L (16-63); AST 18 U/L (15-37); Albumin 3.9 g/dL (3.4-5.0); Alkaline Phosphatase 75 U/L (46-116); Anion Gap 15.9 mmol/L (3-11); BUN 19 mg/dL (7-18); Bilirubin, Total 0.6 mg/dL (0.2-1.0); CO2 22.1 mmol/L (21.0-32.0); CREATININE 1.3 mg/dL (0.70-1.30); Calcium 9.6 mg/dL (8.5-10.1); Chloride 99 mmol/L (98-107); Glucose 280 mg/dL (74-106); Lipase 134 U/L (73-393); Potassium 3.9 mmol/L (3.5-5.1); Sodium 137 mmol/L (136-145)
[2021-03-21 20:29] LABS: Magnesium 1.9 mg/dL (1.8-2.4)
[2021-03-21 20:35] LABS: TSH (W/Ref FT4) 2.25 uIU/mL (0.36-3.74)
[2021-03-21 20:43] LABS: Bilirubin, Direct 0.2 mg/dL (0.0-0.2)
[2021-03-21 20:43] LABS: BE (Venous) -2 mmol/L (-2-3); HCO3 (Venous) 23 mmol/L (23-28); O2 Sat (Venous) 76 %; TCO2 (Venous) 20 mmol/L (24-29); pCO2 (Venous) 33 mmHg (41-51); pH (Venous) 7.45 (7.31-7.41); pO2 (Venous) 40 mmHg
[2021-03-21] MEDS: Omnipaque 350 MG/ML 100 ML BTL IJ (20:47)
[2021-03-21 20:50] LABS: ETHANOL BLOOD < 3.0 mg/dL (<3)
[2021-03-21] MEDS: Normal Saline Flush 10 ML SYR IVP (20:53)
[2021-03-21 21:05] LABS: Source Nasal/Nares
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
[2021-03-21] MEDS: Ondansetron 4 MG/2 ML VIAL IVP (21:42)
[2021-03-21] MEDS: HYDROmorphone 2 MG/ML VIAL 1 MG IVP (21:44)
[2021-03-21 22:13] LABS: COVID-19 PCR Negative (Negative)
[2021-03-21 22:15] VITALS: BP 144/74; PULSE 79; RESP 18; O2SAT 96
[2021-03-21] MEDS: Ondansetron O.D.T. 4 MG TABEF, 3 TABS/BTL PO (22:37)
== END 2021-03-21 22:45 | disposition home or self-care (01) ==
PROVIDERS: Emergency Provider Emergency Medicine; PCP Family Medicine
DX: R10.12 Left upper quadrant pain (principal); K86.1 Other chronic pancreatitis; R11.2 Nausea with vomiting, unspecified; I10 Essential (primary) hypertension; E11.65 Type 2 diabetes mellitus with hyperglycemia
CPT/HCPCS: 36415; 80053; 82805; 83690; 87635; 96374; 96375; 99285; 74177; 80320; 81003; 82248; 83735; 84443; 85025; 99284; J2405; J3490

== ENCOUNTER 2022-03-23 08:18 | Outpatient (CLI) | payer OTHER, SELFPAY | END 2022-03-23 08:19 | disposition home or self-care (01) | LOC: DI.CARD 08:20 | PROVIDERS: PCP Family Medicine; Visit Provider Internal Medicine Cardiovascular Disease | DX: R69 Illness, unspecified (principal) | CPT/HCPCS: 93010 ==

== ENCOUNTER 2022-05-23 09:20 | Outpatient (CLI) | payer MEDICARE, SELFPAY ==
--- NOTE | 2022-05-23 09:15 | RT.EKG_ITS ---
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
== END 2022-05-23 09:21 | disposition home or self-care (01) ==
LOC: DI.CARD 09:21
PROVIDERS: PCP Family Medicine; Visit Provider Internal Medicine Cardiovascular Disease
DX: Z95.810 Presence of automatic (implantable) cardiac defibrillator (principal)
CPT/HCPCS: 93010

== ENCOUNTER → 2022-05-23 12:50 | Outpatient (BNVA) | payer MEDICARE, SELFPAY | PROVIDERS: PCP Family Medicine; Referring Provider Family Medicine; Visit Provider Internal Medicine Cardiovascular Disease | DX: Z95.810 Presence of automatic (implantable) cardiac defibrillator (principal) | CPT/HCPCS: 93005; 93288 ==

== ENCOUNTER 2022-09-27 18:35 | Outpatient (REF) | payer MEDICARE, SELFPAY ==
--- OUTSIDE RECORDS SUMMARY | 2022-09-27 18:46 | XMS_ITS ---
Author Name Clarence Conley Address [address] [place], [place] [id number] Organization [facility] Address [address] [place], [place] [id number] Care Team Providers Care Environmental Science Professor Name Role Phone Clarence Conley Unavailable [phone] PROBLEMS Type Condition ICD9-CM Code UGO05-LL Code Onset Dates Condition Status SNOMED Code Problem Dysthymia F34.1 Active 58086206 Problem Chronic congestive heart failure, unspecified heart failure type I50.9 Active 56892681 Problem Type 2 diabetes mellitus without complications E11.9 Active 855435374 Problem service dispatcher current use of insulin Z79.4 Active 605793565 Problem Cardiomyopathy, unspecified type I42.9 Active 24064362 Problem History of alcohol abuse F10.11 Active 883752306 Problem Mixed hyperlipidemia E78.2 Active 348285084 Problem Other specified congenital malformation syndromes, 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4 Active Problem Chronic kidney disease, unspecified CKD stage N18.9 Active 01437917 Problem English's esophagus without dysplasia K22.70 Active 426264221 Problem Intestinal malabsorption, unspecified K90.9 Active [id number] ALLERGIES No Known Allergies ENCOUNTERS Encounter Location Date Diagnosis [facility] [address] [id number] Mar, Essential hypertension I10 ; Type 2 diabetes mellitus without complications E11.9 ; Mixed hyperlipidemia E78.2 ; Screening for prostate cancer Z12.5 and Erectile dysfunction due to diseases classified elsewhere N52.1 [facility] [address] [place] [address] [id number] Mar, [facility] [address] [place] [address] [id number] Mar, [facility] [address] [place] [address] [id number] Feb, [facility] [address] [place] [address] [id number] November, [facility] [address] [place] [address] [id number] Oct, [facility] [address] [place] [address] [id number] Sep, [facility] [address] [place] [address] [id number] Sep, Essential hypertension I10 ; Mixed hyperlipidemia E78.2 and Diabetes mellitus due to underlying condition without complications E08.9 [facility] [address] [place] [address] [id number] Aug, [facility] [address] [place] [address] [id number] Jul, [facility] [address] [place] [address] [id number] Jul, Diabetes mellitus due to underlying condition without complications E08.9 [facility] [address] [place] [address] [id number] May, [facility] [address] [place] [address] [id number] May, [facility] [address] [place] [address] [id number] 17 Mar, [address] [place] [address] [id number] Mar, G[facility] [address] [place] [address] [id number] Mar, English's esophagus without dysplasia K22.70 ; 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 and Intestinal malabsorption, unspecified K90.9 [facility] [address] [id number] Feb, Diabetes mellitus due to underlying condition without complications E08.[address] [id number] Feb, Diabetes mellitus due to underlying condition without complications E08.[address] [id number] Dec, [address] [id number] Dec, Diabetes mellitus due to underlying condition without complications E08.9 ; Chronic alcoholic pancreatitis K86.0 ; Chronic kidney disease, unspecified CKD stage N18.9 ; Essential hypertension I10 and Chronic congestive heart failure, unspecified heart failure type I50.[address] [place] [address] [id number] Oct, Chronic alcoholic pancreatitis K86.0 ; Intestinal malabsorption, unspecified K90.9 ; Diarrhea, unspecified R19.7 and English's esophagus without dysplasia K22.[address] [id number] Oct, [address] [id number] Sep, Diabetes mellitus due to underlying condition without complications E08.[address] [id number] Sep, Type 2 diabetes mellitus without complications E11.9 ; Chronic congestive heart failure, unspecified heart failure type I50.9 ; Chronic kidney disease, unspecified CKD stage N18.9 and 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 [address] [place] [address] [id number] Sep, [facility] [address] [place] [address] [id number] Sep, Chronic alcoholic pancreatitis K86.0 [facility] [address] [place] [address] [id number] Aug, Epigastric pain R10.[address] [id number] Aug, [address] [id number] Aug, Diabetes mellitus due to underlying condition without complications E08.[address] [id number] Aug, [address] [id number] Aug, [facility] [address] [place] [address] [id number] Jul, [address] [id number] Jul, Diabetes mellitus due to underlying condition without complications E08.[address] [id number] Jun, [address] [id number] Jun, Type 2 diabetes mellitus without complications E11.9 ; service dispatcher current use of insulin Z79.4 ; Essential hypertension I10 ; Mixed hyperlipidemia E78.2 and Dysthymia F34.[address] [id number] May, G[facility]enter[facility] [address] [place] [address] [id number] May, [address] [id number] Apr, [address] [id number] Apr, [address] [id number] Apr, [address] [id number] Apr, [facility] [address] [place] [address] [id number] Apr, [facility] [address] [place] [address] [id number] Apr, Diabetes mellitus due to underlying condition without complications E08.9 ; Chronic alcoholic pancreatitis K86.0 ; Early satiety R68.81 and Abnormal celiac antibody panel R89.[address] [id number] Apr, [facility] [address] [place] [address] [id number] Apr, Diabetes mellitus due to underlying condition without complications E08.9 and Essential hypertension I10 [facility] [address] [place], [place] [id number] 16 Apr, 2020 Gastroenterology [address] [id number] Apr, [facility] [address] [place], [place] [id number] Apr, Chronic alcoholic pancreatitis K86.0 and Abnormal celiac antibody panel R89.4 [facility] [address] [id number] 17 Mar, 2020 Encounter for screening for other viral diseases Z11.59 [facility] [address] [id number] 17 Mar, 2020 Encounter for screening for other viral diseases Z11.[address] [id number] Mar, [facility] [address] [place] [address] [id number] Mar, [facility] [address] [place] [address] [id number] 17 Mar, 2020 Chronic alcoholic pancreatitis K86.0 ; Normocytic anemia D64.9 ; Chronic kidney disease, unspecified CKD stage N18.9 and Abnormal celiac antibody panel R89.4 [facility] [address] [place] [address] [id number] Feb, [facility] [address] [place] [address] [id number] Feb, [facility] [address] [place] [address] [id number] Feb, [facility] [address] [place] [address] [id number] Jan, Diabetes mellitus due to underlying condition without complications E08.9 [facility] [address] [place] [address] [id number] Jan, [facility] [address] [place] [address] [id number] Jan, [facility] [address] [place] [address] [id number] Dec, [facility] [address] [place] [address] [id number] 18 Dec, 2019 [facility] [address] [place] [address] [id number] 15 Dec, 2019 [facility] [address] [id number] Dec, 2019 Diabetes mellitus due to underlying condition without complications E08.9 ; care home current use of insulin Z79.4 ; Essential hypertension I10 and Chronic congestive heart failure, unspecified heart failure type I50.9 [facility] [address] [id number] Dec, 2019 service dispatcher (current) use of insulin Z79.4 and Diabetes mellitus due to underlying condition without complications E08.[address] [id number] November, [facility] [address] [id number] November, [facility] [address] [place] [address] [id number] November, [facility] [address] [place] [address] [id number] November, [facility] [address] [place] [address] [id number] November, Chronic alcoholic pancreatitis K86.0 and Normocytic anemia D64.[address] [id number] Oct, [address] [id number] Sep, [facility] [address] [place] [address] [id number] Sep, AIDEN (obstructive sleep apnea) G47.[address] [place] [address] [id number] Sep, G[facility]enter[facility] [address] [place] [address] [id number] Sep, Chronic alcoholic pancreatitis K86.0 [facility] [address] [id number] Sep, 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 ; Diabetes mellitus due to underlying condition without complications E08.9 and service dispatcher (current) use of insulin Z79.4 [facility] [address] [place] [address] [id number] Jun, AIDEN (obstructive sleep apnea) G47.33 [facility] [address] [facility] [address] [place], [place] [id number] Jun, [facility] [address] [place], [place] [id number] Apr, AIDEN (obstructive sleep apnea) G47.33 [facility] [address] [place], [place] [id number] Apr, AIDEN (obstructive sleep apnea) G47.33 [facility] [address] [place], [place] [id number] Apr, [facility] [address] [place], [place] [id number] Apr, AIDEN (obstructive sleep apnea) G47.33 [facility] Op [address] [place], [place] [id number] Apr, AIDEN (obstructive sleep apnea) G47.[address] [facility] [address] [place], [place] [id number] Mar, [facility] [id number] Mar, [facility] [address] [place], [place] [id number] Mar, AIDEN (obstructive sleep apnea) G47.33 ; Essential hypertension I10 ; Mixed hyperlipidemia E78.2 ; Cardiomyopathy, unspecified type I42.9 ; Chronic congestive heart failure, unspecified heart failure type I50.9 ; History of alcohol abuse F10.11 ; History of pancreatitis Z87.19 ; Type 2 diabetes mellitus without complications E11.9 ; service dispatcher current use of insulin Z79.4 ; Anemia, macrocytic D53.9 and Dysthymia F34.1 [facility] [address] [facility] [address] [place], [place] [id number] Jun, Esophageal dysphagia R13.10 IMMUNIZATIONS Vaccine Route Administration Date Status COVID-19 (Moderna) mRNA,LNP- S,PF 100 mcg/0.5mL dose Unknown October 25, 2020 Administered COVID-19 (Moderna) mRNA,LNP- S,PF 100 mcg/0.5mL dose IM Intramuscular Jun 06, 2021 Administered Zostavax Unknown Mar 14, 2016 Administered Flu HIGH Dose Unknown May 03, 2020 Administered COVID-19 (Moderna) mRNA,LNP- S,PF 100 mcg/0.5mL dose Unknown September 27, 2020 Administered Hepatitis A (adult) Unknown Jun 06, 2016 Administ ered Tdap - Adult Unknown January 25, 2012 Administered Prevnar 13 Adult Unknown February 02, 2016 Administer ed Pneumovax [id number] Unknown Mar 05, 2019 Admin istered TIERNEY - Flu VACC 6 MONTHS > Unknown Jun 11, 2019 Ad ministered Hepatitis B (adult) Unknown September 30, 2013 Admini stered Hepatitis B (adult) Unknown Apr 30, 2013 Administ ered Hepatitis B (adult) Unknown Apr 02, 2013 Adminis tered Hepatitis A (adult) Unknown January 30, 2017 Adminis tered SOCIAL HISTORY Qualifiers Date Never Smoker REASON FOR REFERRAL FUNCTIONAL STATUS PLAN OF CARE Activity Details VITAL SIGNS Height 73 in 2022-04-09 Height 73 in 2021-10-04 Height 73 in 2021-07-13 Height 73 in 2021-03-28 Height 73 in 2020-12-26 Height 73 in 2020-11-01 Height 73 in 2020-09-22 Height 73 in 2020-09-20 Height 73 in 2020-06-30 Height 73 in 2020-05-12 Height 73 in 2020-05-10 Height 73 in 2020-04-07 Height 73 in 2019-12-31 Height 73 in 2019-10-06 Height 73 in 2019-10-01 Height 73 in 2019-07-02 Height 73 in 2019-05-19 Height 73 in 2019-04-28 Height 73 in 2019-03-30 Height 73 in 2017-06-24 Weight 241 lbs 2022-04-09 Weight 248.0 lbs 2021-10-04 Weight 247.2 lbs 2021-07-13 Weight 234 lbs 2021-03-28 Weight 235 lb 4 oz lbs 2020-12-26 Weight 237.4 lbs 2020-11-01 Weight 241.0 lbs 2020-09-22 Weight 241 lbs 2020-09-20 Weight 249.2 lbs 2020-06-30 Weight 243.8 lbs 2020-05-12 Weight 245.4 lbs 2020-05-10 Weight 246 lb 6 oz lbs 2020-04-07 Weight 240.6 lbs 2019-12-31 Weight 244 lb 4 oz lbs 2019-10-06 Weight 242.6 lbs 2019-10-01 Weight 249.4 lbs 2019-07-02 Weight 250.4 lbs 2019-05-19 Weight 251 lbs 2019-04-28 Weight 252 lbs 2019-03-30 Weight 230 lbs 2017-06-24 Temperature 96.6 degrees Fahrenheit Temperature 97.0 degrees Fahrenheit Temperature 97.1 degrees Fahrenheit Temperature 97.2 degrees Fahrenheit Temperature 96.5 degrees Fahrenheit Temperature 96.8 degrees Fahrenheit Temperature 96.4 degrees Fahrenheit Temperature 97.0 degrees Fahrenheit Temperature 97.6 degrees Fahrenheit Temperature 97.7 degrees Fahrenheit Temperature Temporal:97.3 degrees Fahrenheit 2020-04-07 Temperature Temporal:98.1 degrees Fahrenheit 2019-10-06 Heart Rate 89 /min 2022-04-09 Heart Rate 78 /min 2021-10-04 Heart Rate 79 /min 2021-07-13 Heart Rate 77 /min 2021-03-28 Heart Rate 81 /min 2020-12-26 Heart Rate 82 /min 2020-11-01 Heart Rate 79 /min 2020-09-22 Heart Rate 73 /min 2020-09-20 Heart Rate 86 /min 2020-06-30 Heart Rate 82 /min 2020-05-12 Heart Rate 86 /min 2020-05-10 Heart Rate 77 /min 2020-04-07 Heart Rate 66 /min 2019-12-31 Heart Rate 74 /min 2019-10-06 Heart Rate 78 /min 2019-10-01 Heart Rate 86 /min 2019-07-02 Heart Rate 84 /min 2019-05-19 Heart Rate 65 /min 2019-04-28 Heart Rate 75 /min 2019-03-30 Heart Rate 72 /min 2017-06-24 Oximetry 97 2022-04-09 Oximetry 96 2021-10-04 Oximetry 94 2021-07-13 Oximetry 97 2021-03-28 Oximetry 95 2020-12-26 Oximetry 95 2020-11-01 Oximetry 97 2020-09-22 Oximetry 97 2020-09-20 Oximetry 97 2020-06-30 Oximetry 97 2020-05-12 Oximetry 96 2020-05-10 Oximetry 95 2020-04-07 Oximetry 97 2019-12-31 Oximetry 94 2019-10-06 Oximetry 98 2019-10-01 Oximetry 96 2019-07-02 Oximetry 96 2019-05-19 Oximetry 92 2019-04-28 Oximetry 93 2019-03-30 BMI 31.79 kg/m2 2022-04-09 BMI 32.72 kg/m2 2021-10-04 BMI 32.61 kg/m2 2021-07-13 BMI 30.87 kg/m2 2021-03-28 BMI 31.03 kg/m2 2020-12-26 BMI 31.32 kg/m2 2020-11-01 BMI 31.79 kg/m2 2020-09-22 BMI 31.79 kg/m2 2020-09-20 BMI 32.87 kg/m2 2020-06-30 BMI 32.16 kg/m2 2020-05-12 BMI 32.37 kg/m2 2020-05-10 BMI 32.50 kg/m2 2020-04-07 BMI 31.74 kg/m2 2019-12-31 BMI 32.22 kg/m2 2019-10-06 BMI 32.00 kg/m2 2019-10-01 BMI 32.90 kg/m2 2019-07-02 BMI 33.03 kg/m2 2019-05-19 BMI 33.11 kg/m2 2019-04-28 BMI 33.24 kg/m2 2019-03-30 BMI 30.34 kg/m2 2017-06-24 Blood pressure systolic 118 mm Hg Blood pressure diastolic 78 mm Hg 2022-03 MEDICATIONS Medication Instructions Dosage Frequency Start Date End Date Duration Status Furosemide 20 MG Orally Once a day 1 tablet 24h 30 days Active One Daily - Orally Once a day 1 tablet 24h Active Fenofibrate 160 MG Orally Once a day 1 tablet with food 24h 90 days Active Lisinopril 2.5 MG Orally Once a day 1 tablet 24h 90 days Active Tresiba FlexTouch 200 UNIT/ML Subcutaneous Once a day in the am 52-56 units Active OneTouch Delkehinde Estrada 33G - (Prior Auth: Rx Ref#:[id number]) 75 Active Pantoprazole Sodium 40 MG Orally Once a day 1 tablet 24h 90 days Active Sildenafil Citrate 25 MG Orally Once a day 1 tablet as needed 24h 19 Mar, 2022 Active iFrat Wars Blue - In Vitro Check blood sugars 4 times a day dx: e11.9 30 days Active DULoxetine HCl 20 MG Orally Once a day 1 capsule 24h Jan, 90 days Active Multi For Him 50+ Active Carvedilol 12.5 MG Orally Twice a day 1 tab 12h 90 days Active Magnesium 400 MG Orally Once a day 1 capsule with a meal 24h Active iFrat Wars Mini w/Device (Prior Auth: Rx Ref#:[id number]) 1 Active Atorvastatin Calcium 40 MG Orally Once a day 1 tablet 24h 90 days Active BD Pen Needle Mini U/F 31G X 5 MM (prior auth: rx ref#:[id number]) 90 days Active HumaLOG KwikPen 100 UNIT/ML Subcutaneous QID per sliding scale, 10 u plus 1 unit for every 20 over 150(Prior Auth: Rx Ref#:[id number]) 6h 90 days Active Aspirin 81 MG Orally Once a day 1 tablet 24h Active Spironolactone 25 MG Orally Once a day 1 tablet 24h 90 days Active PROCEDURES Procedure Date Ordered Result Body Site PHONE E/M BY PHYS 11-20 MIN October 12, 2019 COVID-19 (SARS-CoV-2) vaccine, 100 mcg/0.5mL dosage No v 2020 DIAGNOSTIC FLEXIBLE LARYNGOSCOPY Jun 24, 2017 EGD BIOPSY SINGLE/MULTIPLE May 03, 2020 TRANS CARE MGMT 7 DAY DISCH May 10, 2020 RESULTS Name Result Date Reference Range PSA - SCREENING 2022-04-10 PSA (SCREEN) 0.216 <=4.000 LIPID PROFILE 2022-04-10 CHOLESTEROL 179 129-209 TRIGLYCERIDES 365 10-150 HDL 37 40-80 LDL (CALCULATED) 69 RISK RATIO 4.8 RISK INTERP RISK MALE FEMALE 1/2 average 3.4 3.3 Average 5.0 4.4 2x Average 9.6 7.1 3x Average 23.4 11.0 GLYCOHEMOGLOBIN A1C 2022-04-10 HGBA1c 7.8 4.0-6.0 est Average Glucose 176 70-105 COMPREHENSIVE METABOLIC PROFILE 2022-04-10 SODIUM 133 134-143 POTASSIUM 4.7 3.5-5.1 CHLORIDE 101 98-111 CO2 23 22-32 CALCIUM 10.2 8.9-10.3 GLUCOSE 206 74-106 BUN 18 8-26 CREATININE 1.04 0.61-1.24 TOTAL BILIRUBIN 1.2 0.3-1.2 TOTAL PROTEIN 7.7 6.5-8.1 ALBUMIN 4.0 3.5-5.0 ALKALINE PHOS 63 38-130 AST 28 15-41 ALT 20 17-63 A/GAP 9.0 3.0-12.0 B/CR 17.3 8.0-20.0 OSMOLARITY 274 275-295 GLOBULIN 3.7 2.3-3.5 A/G 1.1 1.0-2.5 LIPID PROFILE 2020-12-26 CHOLESTEROL 192 129-209 TRIGLYCERIDES 399 10-150 HDL 29 40-80 LDL (CALCULATED) 83 RISK RATIO 6.6 RISK INTERP RISK MALE FEMALE 1/2 average 3.4 3.3 Average 5.0 4.4 2x Average 9.6 GLYCOHEMOGLOBIN A1C 2020-12-26 HGBA1c 8.9 4.0-6.0 est Average Glucose 208 70-105 COMPREHENSIVE METABOLIC PROFILE 2020-12-26 SODIUM 135 134-143 POTASSIUM 4.2 3.5-5.1 CHLORIDE 104 98-111 CO2 21 22-32 CALCIUM 9.8 8.9-10.3 BUN 26 8-26 CREATININE 1.22 0.61-1.24 TOTAL BILIRUBIN 0.9 0.3-1.2 TOTAL PROTEIN 7.3 6.5-8.1 ALBUMIN 4.1 3.5-5.0 ALKALINE PHOS 58 32-92 AST 29 15-41 ALT 21 17-63 A/GAP 10.0 3.0-12.0 B/CR 21.3 8.0-20.0 OSMOLARITY 283 275-295 GLOBULIN 3.2 2.3-3.5 A/G 1.3 1.0-2.5 GLUCOSE-ACCUCKEK 2020-09-15 GLUCOSE-ACCUCKEK 2020-09-15 GLUCOSE-ACCUCKEK 2020-09-14 GLUCOSE-ACCUCKEK 2020-09-14 GLUCOSE-ACCUCKEK 2020-09-14 GLUCOSE-ACCUCKEK 2020-09-14 GLUCOSE-ACCUCKEK 2020-09-13 GLUCOSE-ACCUCKEK 2020-09-13 BASIC METABOLIC PROFILE 2020-09-13 SODIUM 134 136-145 POTASSIUM 4.2 3.5-5.1 CHLORIDE 103 98-111 CO2 22 22-32 CALCIUM 8.3 8.9-10.3 BUN 17 8-26 CREATININE 0.91 0.61-1.24 EGFR >60 EGFR CMT Multiply calculated EGFR by 1.025 for Afro-americans. A/GAP 9.0 3.0-12.0 OSMOLARITY 279 275-295 B/CR 18.7 8.0-20.0 CBC, WITH AUTO DIFF 2020-09-13 WBC 9.7 4.8-10.8 RBC 3.97 4.70-6.10 HGB 12.8 14.0-18.0 HCT 39.3 42.0-52.0 MCV 99.0 80.0-94.0 MCH 32.2 27.0-31.0 MCHC 32.6 32.0-37.0 RDW-CV 14.0 11.5-14.5 PLT 336 130-400 MPV 11.3 7.4-10.4 NE% 56.0 42.2-75.2 LY% 31.5 20.5-51.1 MO% 8.5 1.7-9.3 EO% 3.2 0.9-2.9 BA% 0.4 0.0-0.8 NE# 5.4 1.4-6.5 LY# 3.1 1.2-3.4 MO# 0.8 0.1-0.6 EO# 0.3 0.0-0.2 BA# 0.0 0.0-0.2 LIPASE 2020-09-13 LIPASE 88 18-51 GLUCOSE-ACCUCKEK 2020-09-13 BASIC METABOLIC PROFILE 2020-09-12 SODIUM 132 136-145 POTASSIUM 3.7 3.5-5.1 CHLORIDE 97 98-111 CO2 23 22-32 CALCIUM 9.8 8.9-10.3 BUN 23 8-26 CREATININE 1.12 0.61-1.24 EGFR >60 EGFR CMT Multiply calculated EGFR by 1.025 for Afro-americans. A/GAP 12.0 3.0-12.0 OSMOLARITY 278 275-295 B/CR 20.5 8.0-20.0 CBC, WITH AUTO DIFF 2020-09-12 WBC 14.6 4.8-10.8 RBC 4.48 4.70-6.10 HGB 14.8 14.0-18.0 HCT 42.7 42.0-52.0 MCV 95.3 80.0-94.0 MCH 33.0 27.0-31.0 MCHC 34.7 32.0-37.0 RDW-CV 13.4 11.5-14.5 PLT 367 130-400 MPV 11.2 7.4-10.4 NE% 59.0 42.2-75.2 LY% 30.2 20.5-51.1 MO% 9.2 1.7-9.3 EO% 1.0 0.9-2.9 BA% 0.3 0.0-0.8 NE# 8.6 1.4-6.5 LY# 4.4 1.2-3.4 MO# 1.3 0.1-0.6 EO# 0.1 0.0-0.2 BA# 0.1 0.0-0.2 LIVER PROFILE 2020-09-12 TOTAL BILIRUBIN 1.0 0.3-1.2 DIRECT BILIRUBIN 0.2 0.0-0.5 TOTAL PROTEIN 7.8 6.5-8.1 ALBUMIN 4.3 3.5-5.0 GLOBULIN 3.5 2.3-3.5 A/G 1.2 1.0-2.5 ALKALINE PHOS 67 32-92 AST 19 15-41 ALT 16 17-63 LIPASE 2020-09-12 LIPASE 183 18-51 URINALYSIS DIP w/REFLEX MICRO 2020-09-12 COLOR Yellow YELLOW CLARITY Clear CLEAR SPECIFIC GRAVITY 1.020 1.000-1.030 pH 6.5 5.0-8.0 PROTEIN 30 mg/dL NEGATIVE GLUCOSE 250 mg/dL NEGATIVE KETONES 15 mg/dL NEGATIVE UROBILINOGEN 1.0 E.U./dL 0.2 E.U./DL BILIRUBIN Negative NEGATIVE BLOOD Negative NEGATIVE LEUKOCYTES Negative NEGATIVE NITRITES Negative NEGATIVE LACTIC ACID, REFLEX TO 3HR 2020-09-12 LACTIC ACID 2.0 0.5-2.2 GLUCOSE-ACCUCKEK 2020-09-12 ALCOHOL 2020-09-12 ETOH <5 <=5 GLYCOHEMOGLOBIN A1C 2020-06-27 HGBA1c 8.9 4.0-6.0 est Average Glucose 208 70-105 COMPREHENSIVE METABOLIC PROFILE 2020-06-27 SODIUM 135 136-145 POTASSIUM 4.6 3.5-5.1 CHLORIDE 103 98-111 CO2 21 22-32 CALCIUM 9.5 8.9-10.3 BUN 21 8-26 CREATININE 1.04 0.61-1.24 TOTAL BILIRUBIN 0.9 0.3-1.2 TOTAL PROTEIN 6.9 6.5-8.1 ALBUMIN 3.8 3.5-5.0 ALKALINE PHOS 58 32-92 AST 21 15-41 ALT 16 17-63 A/GAP 11.0 3.0-12.0 B/CR 20.2 8.0-20.0 OSMOLARITY 281 275-295 GLOBULIN 3.1 2.3-3.5 A/G 1.2 1.0-2.5 NM GASTRIC EMPTY 2020-05-24 GLUCOSE-ACCUCKEK 2020-05-05 BASIC METABOLIC PROFILE 2020-05-05 SODIUM 136 136-145 POTASSIUM 3.9 3.5-5.1 CHLORIDE 104 98-111 CO2 23 22-32 CALCIUM 9.0 8.9-10.3 BUN 17 8-26 CREATININE 0.89 0.61-1.24 EGFR >60 EGFR CMT Multiply calculated EGFR by 1.025 for Afro-americans. A/GAP 9.0 3.0-12.0 OSMOLARITY 279 275-295 B/CR 19.1 8.0-20.0 CBC, WITH AUTO DIFF 2020-05-05 WBC 10.2 4.8-10.8 RBC 3.85 4.70-6.10 HGB 12.6 14.0-18.0 HCT 37.8 42.0-52.0 MCV 98.2 80.0-94.0 MCH 32.7 27.0-31.0 MCHC 33.3 32.0-37.0 RDW-CV 13.8 11.5-14.5 PLT 330 130-400 MPV 11.6 7.4-10.4 NE% 48.2 42.2-75.2 LY% 38.2 20.5-51.1 MO% 10.6 1.7-9.3 EO% 2.2 0.9-2.9 BA% 0.5 0.0-0.8 NE# 4.9 1.4-6.5 LY# 3.9 1.2-3.4 MO# 1.1 0.1-0.6 EO# 0.2 0.0-0.2 BA# 0.1 0.0-0.2 LIPASE 2020-05-05 LIPASE 29 18-51 MAGNESIUM 2020-05-05 MAGNESIUM 1.8 1.8-2.5 PROTHROMBIN TIME 2020-05-05 PROTIME 10.4 9.1-10.6 INR 1.0 0.9-1.1 INR_TEXT THERAPEUTIC INR RANG ES FOR WARFARIN Uncomplicated venous thromboembolic disease 2 - 3 Lupus Anticoagulant and recurrent thrombosis 3 - 3.5 Mechanical prosthetic valve GLUCOSE-ACCUCKEK 2020-05-05 GLUCOSE-ACCUCKEK 2020-05-04 GLUCOSE-ACCUCKEK 2020-05-04 GLUCOSE-ACCUCKEK 2020-05-04 GLUCOSE-ACCUCKEK 2020-05-04 BASIC METABOLIC PROFILE 2020-05-04 SODIUM 138 136-145 POTASSIUM 3.9 3.5-5.1 CHLORIDE 102 98-111 CO2 27 22-32 CALCIUM 8.8 8.9-10.3 BUN 13 8-26 CREATININE 1.03 0.61-1.24 EGFR >60 EGFR CMT Multiply calculated EGFR by 1.025 for Afro-americans. A/GAP 9.0 3.0-12.0 OSMOLARITY 277 275-295 B/CR 12.6 8.0-20.0 CBC, WITH AUTO DIFF 2020-05-04 WBC 10.3 4.8-10.8 RBC 3.88 4.70-6.10 HGB 12.7 14.0-18.0 HCT 38.9 42.0-52.0 MCV 100.3 80.0-94.0 MCH 32.7 27.0-31.0 MCHC 32.6 32.0-37.0 RDW-CV 14.1 11.5-14.5 PLT 333 130-400 MPV 10.8 7.4-10.4 NE% 47.6 42.2-75.2 LY% 39.4 20.5-51.1 MO% 10.0 1.7-9.3 EO% 2.4 0.9-2.9 BA% 0.4 0.0-0.8 NE# 4.9 1.4-6.5 LY# 4.1 1.2-3.4 MO# 1.0 0.1-0.6 EO# 0.3 0.0-0.2 BA# 0.0 0.0-0.2 SMEAR COMMENT SEE COMMENTS SEE COMMENTS LIPASE 2020-05-04 LIPASE 60 18-51 MAGNESIUM 2020-05-04 MAGNESIUM 1.9 1.8-2.5 PROTHROMBIN TIME 2020-05-04 PROTIME 10.6 9.1-10.6 INR 1.1 0.9-1.1 INR_TEXT THERAPEUTIC INR RANG ES FOR WARFARIN Uncomplicated venous thromboembolic disease 2 - 3 Lupus Anticoagulant and recurrent thrombosis 3 - 3.5 Mechanical prosthetic valve GLUCOSE-ACCUCKEK 2020-05-04 GLUCOSE-ACCUCKEK 2020-05-03 GLUCOSE-ACCUCKEK 2020-05-03 ALBUMIN 2020-05-03 ALBUMIN 3.3 3.5-5.0 BASIC METABOLIC PROFILE 2020-05-03 SODIUM 135 136-145 POTASSIUM 4.1 3.5-5.1 CHLORIDE 103 98-111 CO2 25 22-32 CALCIUM 8.6 8.9-10.3 BUN 14 8-26 CREATININE 1.11 0.61-1.24 EGFR >60 EGFR CMT Multiply calculated EGFR by 1.025 for Afro-americans. A/GAP 7.0 3.0-12.0 OSMOLARITY 272 275-295 B/CR 12.6 8.0-20.0 MAGNESIUM 2020-05-03 MAGNESIUM 2.1 1.8-2.5 GLUCOSE-ACCUCKEK 2020-05-03 ALBUMIN 2020-05-03 ALBUMIN 3.4 3.5-5.0 BASIC METABOLIC PROFILE 2020-05-03 SODIUM 133 136-145 POTASSIUM 4.2 3.5-5.1 CHLORIDE 101 98-111 CO2 25 22-32 CALCIUM 8.5 8.9-10.3 BUN 18 8-26 CREATININE 0.94 0.61-1.24 EGFR >60 EGFR CMT Multiply calculated EGFR by 1.025 for Afro-americans. A/GAP 7.0 3.0-12.0 OSMOLARITY 272 275-295 B/CR 19.1 8.0-20.0 CBC, WITH AUTO DIFF 2020-05-03 WBC 14.4 4.8-10.8 RBC 4.16 4.70-6.10 HGB 13.6 14.0-18.0 HCT 40.8 42.0-52.0 MCV 98.1 80.0-94.0 MCH 32.7 27.0-31.0 MCHC 33.3 32.0-37.0 RDW-CV 14.3 11.5-14.5 PLT 343 130-400 MPV 10.9 7.4-10.4 NE% 64.8 42.2-75.2 LY% 24.1 20.5-51.1 MO% 8.8 1.7-9.3 EO% 1.7 0.9-2.9 BA% 0.3 0.0-0.8 NE# 9.3 1.4-6.5 LY# 3.5 1.2-3.4 MO# 1.3 0.1-0.6 EO# 0.2 0.0-0.2 BA# 0.1 0.0-0.2 LIPASE 2020-05-03 LIPASE 58 18-51 MAGNESIUM 2020-05-03 MAGNESIUM 2.1 1.8-2.5 PROTHROMBIN TIME 2020-05-03 PROTIME 10.3 9.1-10.6 INR 1.0 0.9-1.1 INR_TEXT THERAPEUTIC INR RANG ES FOR WARFARIN Uncomplicated venous thromboembolic disease 2 - 3 Lupus Anticoagulant and recurrent thrombosis 3 - 3.5 Mechanical prosthetic valve GLUCOSE-ACCUCKEK 2020-05-03 BASIC METABOLIC PROFILE 2020-05-02 SODIUM 133 136-145 POTASSIUM 4.1 3.5-5.1 CHLORIDE 98 98-111 CO2 24 22-32 CALCIUM 9.4 8.9-10.3 BUN 26 8-26 CREATININE 1.40 0.61-1.24 EGFR 54 EGFR CMT Multiply calculated EGFR by 1.025 for Afro-americans. A/GAP 11.0 3.0-12.0 OSMOLARITY 275 275-295 B/CR 18.6 8.0-20.0 CBC, WITH AUTO DIFF 2020-05-02 WBC 16.5 4.8-10.8 RBC 4.79 4.70-6.10 HGB 15.7 14.0-18.0 HCT 46.2 42.0-52.0 MCV 96.5 80.0-94.0 MCH 32.8 27.0-31.0 MCHC 34.0 32.0-37.0 RDW-CV 14.1 11.5-14.5 PLT 388 130-400 MPV 11.0 7.4-10.4 NE% 68.6 42.2-75.2 LY% 22.5 20.5-51.1 MO% 7.2 1.7-9.3 EO% 0.9 0.9-2.9 BA% 0.3 0.0-0.8 NE# 11.3 1.4-6.5 LY# 3.7 1.2-3.4 MO# 1.2 0.1-0.6 EO# 0.1 0.0-0.2 BA# 0.1 0.0-0.2 LIVER PROFILE 2020-05-02 TOTAL BILIRUBIN 1.1 0.3-1.2 DIRECT BILIRUBIN 0.1 0.0-0.5 TOTAL PROTEIN 8.2 6.5-8.1 ALBUMIN 4.1 3.5-5.0 GLOBULIN 4.1 2.3-3.5 A/G 1.0 1.0-2.5 ALKALINE PHOS 56 32-92 AST 21 15-41 ALT 14 17-63 DRUGS OF ABUSE SCREEN URINE 2020-05-02 UDRUG URINE DRUG SCREEN RESULTS: THC NEGATIVE NEGATIVE PHENCYCLIDINE NEGATIVE NEGATIVE COCAINE NEGATIVE NEGATIVE METHAMPHETAMINES NEGATIVE NEGATIVE OPIATES POSITIVE NEGATIVE AMPHETAMINES NEGATIVE NEGATIVE BENZODIAZEPINES NEGATIVE NEGATIVE TRICYCLICS NEGATIVE NEGATIVE METHADONE NEGATIVE NEGATIVE BARBITURATES NEGATIVE NEGATIVE OXYCODONE NEGATIVE NEGATIVE PROPOXYPHENE NEGATIVE NEGATIVE BUPRENORPHINE NEGATIVE NEGATIVE KARO This test only provi federico a preliminary test result. A more specific alternate chemical method must be used in order to obtain a confirmed analytical result. Gas Chromatography/Mass Spectrometry (G PT/APTT PANEL 2020-05-02 PROTIME 10.2 9.1-10.6 INR 1.0 0.9-1.1 INR_TEXT THERAPEUTIC INR RANG ES FOR WARFARIN Uncomplicated venous thromboembolic disease 2 - 3 Lupus Anticoagulant and recurrent thrombosis 3 - 3.5 Mechanical prosthetic valve APTT 23.4 21.3-28.4 AMYLASE 2020-05-02 AMYLASE 84 28-100 LIPASE 2020-05-02 LIPASE 191 18-51 MAGNESIUM 2020-05-02 MAGNESIUM 2.2 1.8-2.5 TROPONIN I 2020-05-02 TROPONIN I 0.01 <=0.05 TROP HEAD Elevated levels of T roponin I are detectable in plasma within 3-6 hours after onset of myocardial infarction, reach peak concentrations in approximately 12-16 hours, and remain elevated for 4-9 da URINALYSIS DIP w/REFLEX MICRO 2020-05-02 COLOR Yellow YELLOW CLARITY Clear CLEAR SPECIFIC GRAVITY 1.025 1.000-1.030 pH 6.5 5.0-8.0 PROTEIN Negative NEGATIVE GLUCOSE Negative NEGATIVE KETONES Negative NEGATIVE UROBILINOGEN 0.2 E.U./dL 0.2 E.U./DL BILIRUBIN Negative NEGATIVE BLOOD Negative NEGATIVE LEUKOCYTES Negative NEGATIVE NITRITES Negative NEGATIVE GLUCOSE-ACCUCKEK 2020-05-02 ALCOHOL 2020-05-02 ETOH <5 <=5 COVID 19 [facility] (PRE-OP AND OB) , PCR 2020-05-02 LIPID PROFILE 2019-12-25 CHOLESTEROL 134 129-209 TRIGLYCERIDES 148 10-150 HDL 28 40-80 LDL (CALCULATED) 76 RISK RATIO 4.8 RISK INTERP RISK MALE FEMALE 1/2 average 3.4 3.3 Average 5.0 4.4 2x Average 9.6 GLYCOHEMOGLOBIN A1C 2019-12-25 HGBA1c 6.9 4.0-6.0 est Average Glucose 151 70-105 COMPREHENSIVE METABOLIC PROFILE 2019-12-25 SODIUM 136 136-145 POTASSIUM 4.5 3.5-5.1 CHLORIDE 102 98-111 CO2 24 22-32 CALCIUM 9.7 8.9-10.3 BUN 32 8-26 CREATININE 1.57 0.61-1.24 TOTAL BILIRUBIN 0.7 0.3-1.2 TOTAL PROTEIN 7.6 6.5-8.1 ALBUMIN 4.2 3.5-5.0 ALKALINE PHOS 45 32-92 AST 28 15-41 ALT 22 17-63 A/GAP 10.0 3.0-12.0 B/CR 20.4 8.0-20.0 OSMOLARITY 277 275-295 GLOBULIN 3.4 2.3-3.5 A/G 1.2 1.0-2.5 CELIAC DISEASE COMPREHENSIVE (520444) 2019-11-27 Deamidated Gliadin Abs, IgA 18 0-19 Deamidated Gliadin Abs, IgG 4 0-19 t-Transglutaminase (tTG) IgA <2 0-3 t-Transglutaminase (tTG) IgG 6 0-5 Endomysial Antibody IgA Negative Nega tive Immunoglobulin A, Qn, Serum 424 61-437 FERRITIN 2019-11-27 FERRITIN 266.4 24.0-336.0 HEPATITIS A TOTAL ANTIBODY ([id number]) 2019-11-27 Hep A Ab, Total Positive Negative HEPATITIS B SURFACE ANTIBODY 2019-11-27 IRON/TRANSFERRIN PANEL 2019-11-27 IRON 97 45-182 TRANSFERRIN 337 180-329 TIBC 472 250-400 IRON SATURATION 21 20-55 VITAMIN B12 & FOLATE 2019-11-27 VIT B12 419 180-914 FOLATE >20.0 >=6.0 CBC, WITH MANUAL DIFF 2019-10-06 WBC 11.6 4.8-10.8 RBC 4.37 4.70-6.10 HGB 13.7 14.0-18.0 HCT 40.8 42.0-52.0 MCV 93.4 80.0-94.0 MCH 31.4 27.0-31.0 MCHC 33.6 32.0-37.0 RDW-CV 14.6 11.5-14.5 PLT 425 130-400 MPV 10.8 7.4-10.4 MANUAL DIFF MANUAL DIFFERENTIAL SEGS 39 42-75 BANDS 0-6 LYMPHS 36 20-51 SUNITA. LYMPHS 8 <=1 MONOS 10 2-9 EOS 7 0-3 BASO 0-1 METAS MYELOS NRBC PLT ESTIMATE INCREASED ADEQUATE RBC MORPH NORMAL NORMAL ANISO POIK MICRO MACRO HYPO POLYCHROM COMPREHENSIVE METABOLIC PROFILE 2019-10-06 SODIUM 137 136-145 POTASSIUM 4.8 3.5-5.1 CHLORIDE 104 98-111 CO2 24 22-32 CALCIUM 9.4 8.9-10.3 BUN 22 8-26 CREATININE 1.27 0.61-1.24 TOTAL BILIRUBIN 0.3 0.3-1.2 TOTAL PROTEIN 7.5 6.5-8.1 ALBUMIN 3.9 3.5-5.0 ALKALINE PHOS 54 32-92 AST 34 15-41 ALT 28 17-63 A/GAP 9.0 3.0-12.0 B/CR 17.3 8.0-20.0 OSMOLARITY 279 275-295 GLOBULIN 3.6 2.3-3.5 A/G 1.1 1.0-2.5 REASON FOR VISIT PC 1 YR F/U, pc 6m f/u, Fenofibrate , Fenofibrate refill , RF-lisinopril, atorvastatin, RF pen needles/carvedilol, Refill Deloxetine, RF-furosemide, PC - Med F/U, 6 month follow up, RF-lisinopril, furosemide, Tresiba RF, Tresiba RF , PC - 6 mo f/u, trasiba 52mg, pc 6m f/u, Pantoprazole RF , #3 moderna, Spironolactone, 3m f/u EGD, test strip - RF, Refills, 3mo f/u, Lab results, 3m f/u: pt states hasnt eaten today yet. Was to get some labs drawn. This am was 294. , Toes are numb and tingling: constant, Sees Juancarlos Harris next month [place] [facility] [place] 3MO F/U, GI-6 month f/u - EGD, Atorvastatin RF , Levemir RF , F/U PANCREATITIS, F/U [facility] PANCREATITIS, Pt states that lately his sugar has been a little high about 300 or more when he was in the hospital last week , GI 3 month f/u, med f/u, TIERNEY pancreas problems, Med F/U, [facility] DE benefits, Levemir RF , Carvedilol RF, Refills, GI 3 month f/u, GI 3 month f/u, Telemed appt on 08/16, Levemir RF , R/S, PC 6 MO F/U/ Refill needed for needles; loaded not sent, Encourage AWV, Needs PHQ9, [facility] d/c from 05/05 for pancreatitus, Pantoprazole RF , Gastric emptying scan, carvedilol refill, RX, RX, Needs scripts printed, NM order, GS Pancreatitis f/u, [facility] discharge 05/05, Blood sugar device, PC TCM [facility] follow up pancreatitis, Encourage AWV ,TCM, GI-EGD, cardiac clearance (proc 05/03/20), covid lab order, referral, Colonoscopy records, GI-6 mo fu , [place] [facility] [place]. He will be establishing care at [facility] w/Dr. Black, Spironolactone RF, Atorvastatin RF, Atorvastatin RF, Strip - RF, Neuropathy - 1callback, Humalog KwikPen RF, Carvedilol refill, refill, Fenofibrate - RF, pc 3 mo f/u, encourage AWV with next visit,updated lab orders, refill, OneTouch Strips - RF, diagnosis, [facility] Records Received , GI-anemia f/u, Coronavirus telemedicine visit. Problem is not related to coronavirus. Patient consents to telephone visit, patient at home, physician in office. Duration of physician telephone time 10 minutes., Atorvastatin - RF, Med Refill , NCPULM f/u cpap need for compliance/regional, GI history of pancreatitis, Last colonoscopy was at [facility] approx a couple of years ago. 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, NCPUL - 3 mo f/up BIPAP, NCPULM Mask Fit, GI hx of pancreatitis ,GI hx of pancreatitis, MASK FIT: pain from FFM, NCPULM 2 WK f/u on New set up CPAP, Regional/ResMedAirFit N20 nasal mask large , PAP pressure causing discomfort, NCPUL- Sleep Study f/up, NCPUL - mask fit, Cpap titrationNO PA NEEDED, NCPUL - f/up CPAP titration, Sleep study f/u, Study scored and ready for review., NCPUL - CPAP titration *No PA Needed*, NCPUL - PSG, NCPUL SLEEP STUDY F/U, Study scored and ready for review., ncpul psg, PA, NCPULM_Sleep disturbance, occasional difficulty swallowing Insurance Providers Health Insurance Type Health Plan Insurance Address Health Plan Insurance Phone Health Plan Insurance Name Health Plan Coverage Dates Member ID Patient Relationship to Subscriber Patient Address Patient Phone Patient Name Patient Date of Subscriber ID Subscriber Name Subscriber Date of Group No [facility] MCR ADV [address] [address] [facility] [id number] [facility] MCR ADV self Sonny Henning [id number] MEDICARE PART A [address] [facility] [id number] MEDICARE PART A self Sonny Henning [id number] [place] [address] [place] [address] [place] Sonny Hen[place] [id number] [place] [address] [place] [address] [place] Sonny Henning [id number] NGS MEDICARE [address] [place] [address] NGS MEDICARE self Sonny Henning [id number] [employer] MED[employer] SUPPLEMENT SOLUTIONS [address] [address] [place] [address] [employer] SU[employer]MENT SOLUTIONS self Sonny Henning [id number] Plan G [place] [address] [facility] [address] [place] self Sonny Henning [id number]
[2022-09-27 19:43] LABS: HCT 41.4 % (40.0-50.0); HGB 13.9 g/dL (13.5-17.5); MCHC 33.6 % (32.0-36.0); MCV 98 fL (80-95); MPV 11.8 fL (8.0-11.0); Platelet Count 400 10^3/uL (130-400); RBC 4.21 10^6/uL (4.36-5.78); RDW 13.6 % (11.8-14.1); RDW-SD 48.8 fL; WBC 12.15 10^3/uL (4.4-10.8)
[2022-09-27 20:04] LABS: Hemoglobin A1C 8.3 % (<5.7)
[2022-09-27 20:33] LABS: ALT 28 U/L (16-63); AST 28 U/L (15-37); Albumin 3.8 g/dL (3.4-5.0); Alkaline Phosphatase 64 U/L (46-116); Anion Gap 11.7 mmol/L (3-11); BUN 30 mg/dL (7-18); Bilirubin, Total 0.3 mg/dL (0.2-1.0); CO2 23.3 mmol/L (21.0-32.0); CREATININE 1.3 mg/dL (0.70-1.30); Chloride 103 mmol/L (98-107); Cholesterol 151 mg/dL (<200); Estimated GFR 59.47 (mL/min/1.73m2); Glucose 262 mg/dL (74-106); HDL Cholesterol 32 mg/dL (40-60); Potassium 4.2 mmol/L (3.5-5.1); Sodium 138 mmol/L (136-145); Total Protein 7.7 g/dL (6.4-8.2); Triglyceride 413 mg/dL (<150)
[2022-10-04 16:04] LABS: Calculated LDL 36 mg/dL (<100)
== END 2022-09-27 18:36 | disposition home or self-care (01) ==
LOC: NCHCN 18:35
PROVIDERS: PCP Family Medicine; Visit Provider Nurse Practitioner Family
DX: D53.9 Nutritional anemia, unspecified (principal); E78.5 Hyperlipidemia, unspecified; E11.9 Type 2 diabetes mellitus without complications
CPT/HCPCS: 80053; 80061; 85027; 83036

== ENCOUNTER 2022-10-29 12:51 | Outpatient (REF) | payer MEDICARE, SELFPAY ==
[2022-10-29 15:11] LABS: Abs Immature Grans 0.03 10^3/uL (0.0-0.06); Absolute Basophil Count 0.06 10^3/uL (0.0-0.2); Absolute Eosinophil Count 0.12 10^3/uL (0.0-0.7); Absolute Lymphocyte Count 3.38 10^3/uL (1.2-3.4); Absolute Monocyte Count 0.94 10^3/uL (0.1-0.8); Absolute Neutrophil Count 5.43 10^3/uL (1.2-6.7); Basophils % 0.6; Eosinophils % 1.2; HCT 40.1 % (40.0-50.0); HGB 13.4 g/dL (13.5-17.5); Immature Grans % 0.3; Lymphocytes % 33.9; MCH 32.7 pg (27.0-33.0); MCHC 33.4 % (32.0-36.0); MCV 98 fL (80-95); MPV 11.4 fL (8.0-11.0); Monocytes % 9.4; Neutrophils % 54.6; Nucleated RBC 0.5 % (0.0-0.3); Platelet Count 371 10^3/uL (130-400); RDW 13.4 % (11.8-14.1); RDW-SD 47.9 fL; WBC 9.96 10^3/uL (4.4-10.8)
[2022-10-29 15:46] LABS: Ferritin 518 ng/mL (26-388)
== END 2022-10-29 12:52 | disposition home or self-care (01) ==
LOC: NCHCN 12:51
PROVIDERS: PCP Family Medicine; Visit Provider Nurse Practitioner Family
DX: R79.89 Other specified abnormal findings of blood chemistry (principal); D72.829 Elevated white blood cell count, unspecified
CPT/HCPCS: 82728; 85025

== ENCOUNTER 2022-11-01 13:44 | Outpatient (CLI) | payer MEDICARE, SELFPAY ==
--- NOTE | 2022-11-01 13:05 | DI.RAD_ITS ---
Exam(s) XR FOOT LT COMPLETE EXAM: XR FOOT LT COMPLETE CLINICAL HISTORY: LEFT FOOT PAIN M79.672 PAIN AND BRUISING. TECHNIQUE: 2D digital imaging was performed. Three views. COMPARISON: No exams were available for comparison FINDINGS: BONES: Nondisplaced fracture extending through the midportion of the proximal phalanx of the 4th toe. Additional nondisplaced fracture extending transversely through the distal phalanx of the 4th toe. No bony destructive lesion is seen. Heel spur. JOINTS: No dislocation present. SOFT TISSUE: Normal. IMPRESSION: Nondisplaced fractures proximal and distal phalanges of the 4th toe. DATA REPOSITORY: RADIATION DOSE DELIVERED:
== END 2022-11-01 14:04 ==
LOC: DI 13:44
PROVIDERS: PCP Family Medicine; Visit Provider Nurse Practitioner Family
DX: M79.672 Pain in left foot (principal); S92.535A Nondisplaced fracture of distal phalanx of left lesser toe(s), initial encounter for closed fracture; S92.515A Nondisplaced fracture of proximal phalanx of left lesser toe(s), initial encounter for closed fracture
CPT/HCPCS: 73630

== ENCOUNTER 2022-11-01 16:33 | Outpatient (REF) | payer MEDICARE, SELFPAY ==
[2022-11-01 15:35] LABS: Uric Acid 5.6 mg/dL (3.5-7.2)
== END 2022-11-01 16:34 | disposition home or self-care (01) ==
LOC: NCHCN 16:33
PROVIDERS: PCP Family Medicine; Visit Provider Nurse Practitioner Family
DX: M79.672 Pain in left foot (principal)
CPT/HCPCS: 84550

== ENCOUNTER → 2022-11-21 10:54 | Outpatient (BNVA) | payer MEDICARE, SELFPAY | PROVIDERS: PCP Family Medicine; Referring Provider Family Medicine; Visit Provider Internal Medicine Cardiovascular Disease | DX: Z45.02 Encounter for adjustment and management of automatic implantable cardiac defibrillator | CPT/HCPCS: 93284 ==

== ENCOUNTER → 2023-05-22 10:18 | Outpatient (BNVA) | payer MEDICARE, SELFPAY | PROVIDERS: PCP Family Medicine; Referring Provider Family Medicine; Visit Provider Internal Medicine Cardiovascular Disease | DX: Z45.02 Encounter for adjustment and management of automatic implantable cardiac defibrillator (principal); I50.9 Heart failure, unspecified | CPT/HCPCS: 93284 ==

== ENCOUNTER → 2023-07-29 03:03 | Outpatient (CLI) | payer MEDICARE, SELFPAY ==
--- NOTE | 2023-07-29 07:30 | DI.US_ITS ---
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 Mildly dilated LA,other chamberes normal sizes. 2. Normal LV systolic function,EF 55-60% without wall motion abnormality. Normal RV systolic function . Device lead in right heart. 3. Anatomically normal valves. Mild MR. 4. No intracardiac shunt 5. No pericardial effusion. 6. Compared to the study of 11/2017, the LVEF has improved significantly from 30-35%. Wall motion Left Ventricle The left ventricle is normal size. Left ventricular systolic function is moderately decreased. There is normal left ventricular wall thickness. There is global hypokinesis of the left ventricle. There i s no ventricular septal defect visualized. LVEF is 40-43%. Right Ventricle The right ventricle is normal size. Right ventricular systolic function is grossly normal. Device suze d is present in the right ventricle. Atria Left atrium is mildly dilated. The right atrium size is normal. The interatrial septum is intact with no evidence for an atrial septal defect. Aortic Valve The aortic valve is normal in structure. There is no aortic valvular stenosis. No aortic regurgitatio n is present. Mitral Valve The mitral valve is normal in structure. No evidence of mitral valve stenosis. Mild mitral regurgitat ion. Tricuspid Valve The tricuspid valve is normal in structure. There is no tricuspid valve stenosis. Trace tricuspid reg urgitation. Unable to assess PA pressure. Pulmonic Valve The pulmonary valve is normal in structure. There is no pulmonic valvular stenosis. There is no pulmo lorie valvular regurgitation. Great Vessels The aortic root is normal in size. The ascending aorta is mildly dilated. IVC is normal in size and c ollapses >50% with inspiration. Pericardium There is no pericardial effusion. 2D Dimensions IVSD d PLAX 1.05 cm M: 0.6-1.2 Ao Root d 2.77 cm M: 3.1 - 3.7 LVPW d PLAX 1.05 cm M: 0.6 - 1.2 Ao Asc Diam d 3.65 cm M: 2.6 - 3.4 LVID d PLAX 4.50 cm M: 4.2 - 5.8 LVDs 3.55 cm M: 2.5 - 4.0 LV EF Teichholz 43.2 % FS 21.19 % LV EDV (Teich) 92.5 mL LV ESV (Teich) 52.6 mL Stroke Vol Index (Teich) 17.45 M-Mode TAPSE 2.46 cm (M/F) >1.7 Auto EF LV EDV A4C 116.9 mL LV EDV A2C 104.2 mL LV EDV BP 112.7 mL LV ESV A4C 69.2 mL LV ESV A2C 62.0 mL LV ESV BP 65.5 mL LVEF(%) A4C 40.8 % LVEF(%) A2C 40.5 % LVEF(%) BP 41.9 % LV SV A4C 47.7 ml LV SV A2C 42.2 ml LV SV BP 47.2 ml LV CO A4C 3.9 L/min LV CO A2C 3.5 L/min LV CO BP 3.7 L/min HR A4C 82.01 BPM HR A2C 81.82 BPM LV EDV Index (BP) LA Volume LA Length A4C 5.8 cm LA Length A2C 6.0 cm LA Area A4C s 13.39 cm2 LA Area A2C s 23.74 cm2 LA Vol A4C A-L 26.45 mL LA Vol A2C A-L 80.36 mL LA Vol Biplane A-L 46.9 mL LA Vol/BSA A4C A-L LA Vol/BSA A2C A-L LA Vol/BSA BP A-L 20.5 mL/m2 LA Vol A4C MOD 26.3 mL LA Vol A2C MOD 77.8 mL LA Vol BP MOD 45.0 mL RA Volume RA Area A4C 10.1 cm2 RA ESV A4C (A-L) 24.2mL RA Vol/BSA A4C A-L RA Length A4C 3.6 cm RA ESV A4C (MOD) 23.5mL LV Diastology MV E' medial 0.074 (>0.07 m/s) MV E Vmax 0.86 (0.4-1.3 m/s) MV E/E' MED 11.59 (<14) MV A Vmax 1.15 (0.4-1.3 m/s) MV E' lateral 0.092 (>0.1 m/s) E/A Ratio 0.7 MV E/E' LAT 9.32 (<14) MV E' Average 0.083 m/s MV E/E'(average) 10.33 Aortic Valve AoV Vmax 1.58 m/s LVOT Vmax 1.24 m/s AoV Peak Grad 10.0 mmHg LVOT Peak Grad 6.1 mmHg AoV Area (Vmax) 2.11 cm2 LVOT VTI 0.254 m AoV VTI 0.307 m LVOT Mean Grad 3.6 mmHg AoV Mean Shree. 1.11 m/s LVOT SV 68.69 mL AoV Mean Grad 5.6 mmHg LVOT Diam s 1.85 cm AoV Area (VTI) 2.24 cm2 Velocity Ratio 0.78 Mitral Valve MV DT 214 (160-240 msec) Pulmonary Valve PV Vmax 1.47 (0.5-1.5 m/s) RVOT Vmax 0.95 m/s PV Peak Grad 8.7 mmHg RVOT Peak Gr. 3.6 mmHg PV Mean Shree 0.99 m/s RVOT VTI 0.185 m PV Mean Grad 4.6 mmHg RVOT Mean Gr. 2.2 mmHg
== END ==
PROVIDERS: PCP Family Medicine; Visit Provider Internal Medicine Cardiovascular Disease
DX: I50.9 Heart failure, unspecified (principal)
CPT/HCPCS: 93306

== ENCOUNTER 2023-08-22 10:34 | Outpatient (REF) | payer MEDICARE, SELFPAY ==
[2023-08-22 16:12] LABS: Abs Immature Grans 0.03 10^3/uL (0.0-0.06); Absolute Basophil Count 0.06 10^3/uL (0.0-0.2); Absolute Lymphocyte Count 3.62 10^3/uL (1.2-3.4); Absolute Neutrophil Count 5.67 10^3/uL (1.2-6.7); Basophils % 0.6; HCT 44.5 % (40.0-50.0); HGB 14.7 g/dL (13.5-17.5); Immature Grans % 0.3; Lymphocytes % 34.9; MCH 32.5 pg (27.0-33.0); MCV 98 fL (80-95); MPV 11.8 fL (8.0-11.0); Monocytes % 8.7; Neutrophils % 54.5; Nucleated RBC 0.7 % (0.0-0.3); Platelet Count 374 10^3/uL (130-400); RBC 4.53 10^6/uL (4.36-5.78); RDW 13.4 % (11.8-14.1); RDW-SD 48.7 fL; WBC 10.38 10^3/uL (4.4-10.8)
[2023-08-22 16:28] LABS: Hemoglobin A1C 6.6 % (<5.7)
[2023-08-22 16:47] LABS: ALT 31 U/L (16-63); AST 41 U/L (15-37); Albumin 3.8 g/dL (3.4-5.0); Alkaline Phosphatase 56 U/L (46-116); Anion Gap 10.4 mmol/L (3-11); BUN 28 mg/dL (7-18); Bilirubin, Total 0.9 mg/dL (0.2-1.0); CO2 24.6 mmol/L (21.0-32.0); CREATININE 1.2 mg/dL (0.70-1.30); Calcium 9.6 mg/dL (8.5-10.1); Calculated LDL 60 mg/dL (<100); Chloride 101 mmol/L (98-107); Cholesterol 129 mg/dL (<200); Estimated GFR 65.06 (mL/min/1.73m2); Ferritin 564 ng/mL (26-388); Glucose 156 mg/dL (74-106); HDL Cholesterol 41 mg/dL (40-60); Magnesium 1.8 mg/dL (1.8-2.4); Potassium 4.6 mmol/L (3.5-5.1); Sodium 136 mmol/L (136-145); Triglyceride 143 mg/dL (<150)
[2023-08-22 16:58] LABS: Vitamin D 25 Total 26.6 ng/mL (30-100)
[2023-08-23 16:21] LABS: C-Reactive Protein < 0.50 mg/dL (<or=0.5)
[2023-08-23 16:31] LABS: Iron 132 ug/dL (65-175); Total Iron Binding Capacity 401 ug/dL (250-450); Transferrin Sat 33 % (20-55)
== END 2023-08-22 10:35 | disposition home or self-care (01) ==
LOC: NCHCN 10:34
PROVIDERS: PCP Family Medicine; Visit Provider Nurse Practitioner Family
DX: E11.9 Type 2 diabetes mellitus without complications
CPT/HCPCS: 80053; 80061; 82306; 82728; 83036; 83540; 83550; 83735; 85025; 86140

== ENCOUNTER 2023-08-27 11:50 | Outpatient (REF) | payer MEDICARE, SELFPAY ==
--- NOTE | 2023-08-27 11:20 | SKI_PTH ---
PATIENT: Sonny Henning LOC: [facility] U#:[id number] AGE/SX: 68/M ROOM: RE08/27/[address]: Behzad Gaona MD : 1955 BED: DIS: 08/27/2023 SPEC #: [id number] RECD: 08/27/23 17:11 STATUS: HAZEL REJayy #: [id number] OLMAN: 08/27/23 11:[address]: Behzad Gaona DEPT: Surgical Specimen RECD BY: Megha Eric ENTERED: 08/27/23 17:12 SP TYPE: SKI OT DR: Alison Riggs Tissues: 1 - SKIN BIOPSY(SHAVE/PUNCH) Procedures: SKIN LEVEL 4 Comments: [id number]
== END 2023-08-27 11:51 | disposition home or self-care (01) ==
LOC: LBN 11:50
PROVIDERS: PCP Nurse Practitioner Family; Visit Provider Otolaryngology
DX: C44.319 Basal cell carcinoma of skin of other parts of face (principal)
CPT/HCPCS: 88305

== ENCOUNTER 2023-10-14 10:13 | Outpatient (CLI) | payer MEDICARE, SELFPAY ==
[2023-10-17 07:06] LABS: Result Summary NEGATIVE; Specimen WB Whole Blood
== END 2023-10-14 10:14 | disposition home or self-care (01) ==
LOC: LBO 10:14
PROVIDERS: PCP Nurse Practitioner Family; Visit Provider Internal Medicine
DX: R79.89 Other specified abnormal findings of blood chemistry (principal); R77.8 Other specified abnormalities of plasma proteins; D72.829 Elevated white blood cell count, unspecified; E11.9 Type 2 diabetes mellitus without complications
CPT/HCPCS: 36415; 81256

== ENCOUNTER 2024-01-21 08:25 | Outpatient (REF) | payer MEDICARE, SELFPAY ==
--- NOTE | 2024-01-21 07:45 | SKI_PTH ---
PATIENT: Sonny Henning LOC: [facility] U#:[id number] AGE/SX: 68/M ROOM: RE01/21/[address]: Behzad Gaona MD : 1955 BED: DIS: 01/21/2024 SPEC #: [id number] RECD: 01/21/24 12:51 STATUS: HAZEL REJayy #: [id number] OLMAN: 01/21/24 07:[address]: Behzad Gaona DEPT: Surgical Specimen RECD BY: Megha Eric ENTERED: 01/21/24 12:52 SP TYPE: RONY IVY DR: Alison Riggs Tissues: 1 - SKIN BIOPSY(SHAVE/PUNCH) Procedures: SKIN LEVEL 4 Comments: [id number]
== END 2024-01-21 08:26 | disposition home or self-care (01) ==
LOC: LBN 08:25
PROVIDERS: PCP Nurse Practitioner Family; Visit Provider Otolaryngology
DX: C44.41 Basal cell carcinoma of skin of scalp and neck (principal)
CPT/HCPCS: 88305

== ENCOUNTER 2024-05-27 08:09 | Outpatient (CLI) | payer MEDICARE, SELFPAY ==
--- NOTE | 2024-05-27 08:00 | RT.EKG_ITS ---
APPROVED REPORT Exam: Resting ECG Reason for Exam: HTN Patient Location: O HR:68 bpm ECG Measurements Heart Rate 68 AXIS AZ 154 P 72 QRSd 120 QRS 268 QT 420 T 79 QTc 447 Conclusion Atrial-sensed ventricular-paced rhythm...ventricular pacing tracks p-waves No further analysis attempted due to paced rhythm
== END 2024-05-27 08:10 | disposition home or self-care (01) ==
LOC: DI.CARD 08:10
PROVIDERS: PCP Nurse Practitioner Family; Visit Provider Internal Medicine Cardiovascular Disease
DX: Z95.810 Presence of automatic (implantable) cardiac defibrillator (principal); I10 Essential (primary) hypertension
CPT/HCPCS: 93010

== ENCOUNTER → 2024-05-27 09:14 | Outpatient (BNVA) | payer MEDICARE, SELFPAY | PROVIDERS: PCP Nurse Practitioner Family; Visit Provider Internal Medicine Cardiovascular Disease | DX: Z95.810 Presence of automatic (implantable) cardiac defibrillator (principal); I10 Essential (primary) hypertension | CPT/HCPCS: 93005; 93284 ==

== ENCOUNTER 2025-04-12 15:38 | Outpatient (REF) | payer MEDICARE, SELFPAY ==
[2025-04-12 16:48] LABS: ALT 56 U/L (16-63); AST 61 U/L (15-37); Albumin 3.9 g/dL (3.4-5.0); Alkaline Phosphatase 70 U/L (46-116); Anion Gap 12.7 mmol/L (3-11); BUN 17 mg/dL (7-18); Bilirubin, Total 0.7 mg/dL (0.2-1.0); CO2 23.3 mmol/L (21.0-32.0); Calcium 9.9 mg/dL (8.5-10.1); Chloride 104 mmol/L (98-107); Glucose 140 mg/dL (74-106); Potassium 4.0 mmol/L (3.5-5.1); Sodium 140 mmol/L (136-145); Total Protein 7.3 g/dL (6.4-8.2)
[2025-04-12 17:09] LABS: Hemoglobin A1C 7.1 % (<5.7)
[2025-04-12 22:20] LABS: PSA, Screening 0.3 ng/mL (<=6.5)
[2025-04-13 16:07] LABS: Microalb ug/mg Crea 6.2 ug/mg Cr
== END 2025-04-12 15:39 | disposition home or self-care (01) ==
LOC: NCHCL 15:38
PROVIDERS: PCP Nurse Practitioner Family; Visit Provider Nurse Practitioner Family
DX: Z00.00 Encounter for general adult medical examination without abnormal findings (principal); E11.42 Type 2 diabetes mellitus with diabetic polyneuropathy
CPT/HCPCS: 80053; 84153; 86803; 82043; 82570; 83036

== ENCOUNTER → 2025-05-26 12:59 | Outpatient (BNVA) | payer MEDICARE, SELFPAY | PROVIDERS: PCP Nurse Practitioner Family; Visit Provider Registered Nurse | DX: I42.9 Cardiomyopathy, unspecified (principal); Z45.02 Encounter for adjustment and management of automatic implantable cardiac defibrillator | CPT/HCPCS: 93284 ==